=== PATIENT | female | born 1965 | race Caucasian/White ===

== ENCOUNTER 2018-11-21 22:07 | Emergency (ER) | payer OTHER, MEDICAID, SELFPAY ==
[2018-11-21 22:29] VITALS: BP 116/73; PULSE 85; RESP 12; TEMP 36.6; O2SAT 100
--- NOTE | 2018-11-21 22:45 | DI.CT.S_ITS ---
PROCEDURE: CT HEAD/BRAIN WO CON INDICATIONS: Dizziness, ear pain TECHNIQUE: Noncontrast 4.5 mm thick angled axial sections acquired from the foramen magnum to the vertex, with coronal and sagittal reformats. For radiation dose reduction, the following was used: automated exposure control, adjustment of mA and/or kV according to patient size. COMPARISON: None. FINDINGS: Image quality: Excellent. CSF spaces: Basal cisterns are patent. No extra-axial fluid collections. Ventricles are normal in size and shape. Brain: No midline shift. No intracranial masses or hemorrhage. Mckinley-white matter interface is normal. Skull and face: Calvarium and visualized facial bones are intact, without suspicious lesions. Sinuses: Visualized sinuses and mastoids are clear. IMPRESSION: 1. No acute intracranial abnormalities. No significant discrepancy with the security shift supervisor radiology preliminary report. Dictated by: Simon Gonzalez M.D. on 11/22/2018 at 7:56 Approved by: Simon Gonzalez M.D. on 11/22/2018 at 7:57
--- NOTE | 2018-11-21 22:45 | ED.DIZZY ---
HPI - Dizziness General Chief Complaint: Dizziness Stated Complaint: STATES VERY DIZZY Time Seen by Provider: 11/21/18 22:15 Source: patient Mode of arrival: ambulatory Limitations: no limitations History of Present Illness HPI Narrative: Patient is a 53-year-old female here for evaluation dizziness and left-sided numbness. She stated that it started approximately an hour before coming to the emergency department. She stated that the dizziness as a lightheadedness. He is not a vertigo sensation. She states that the numbness is at the top of her left arm and down the outside of her left leg. No trauma. Has not tried anything for the symptoms prior to arrival. She states she is having some sinus congestion. No vision changes. No chest pain or shortness of breath. Related Data Home Medications Medication Instructions Recorded Confirmed bupropion HCl [Wellbutrin SR] 150 mg PO QDAYP #0 04/09/11 gemfibrozil 600 mg PO BIDAC #0 04/09/11 loratadine [Claritin] 10 mg PO BID #0 04/09/11 citalopram 40 mg PO QDAY #0 02/09/12 omeprazole 20 mg PO QDAY@0600 #0 02/09/12 Previous Rx's Medication Instructions Recorded prednisone 20 mg PO SEE INSTRUCTIONS #15 tab 04/22/16 meclizine 25 mg PO BID-TID PRN #10 tab 11/22/18 methocarbamol [Robaxin] 750 mg PO TID PRN #60 tab 11/22/18 Allergies Allergy/AdvReac Type Severity Reaction Status Date / Time amoxicillin [AMOXICILLIN] Allergy Unknown Verified 11/22/18 01:02 aspirin [ASPIRIN] Allergy Unknown Verified 11/22/18 01:02 clavulanic acid Allergy Unknown Verified 11/22/18 01:02 [CLAVULANIC ACID] diphenhydramine Allergy Unknown Verified 11/22/18 01:02 [DIPHENHYDRAMINE] erythromycin base Allergy Unknown Verified 11/22/18 01:02 [From ERYTHROCIN] ibuprofen [IBUPROFEN] Allergy Unknown Verified 11/22/18 01:02 Sulfa (Sulfonamide Allergy Unknown Verified 11/22/18 01:02 Antibiotics) [SULFA (SULFONAMIDE ANTIBIOTICS)] tetracycline [TETRACYCLINE] Allergy Unknown Verified 11/22/18 01:02 Review of Systems Constitutional Denies fatigue and Denies fever(s) ENT Ears, Nose, Mouth, and Throat: Denies vertigo, Denies dizziness, Reports disequilibrium and Reports sinus pressure Cardiovascular Denies chest pain and Denies dyspnea Respiratory Denies cough and Denies dyspnea Gastrointestinal Gastrointestinal: Denies abdominal pain, Denies nausea and Denies vomiting Musculoskeletal Denies myalgias, Denies arthralgias, Denies muscle weakness and Reports tingling (Left upper arm outside a left leg) Integumentary/Breasts Denies rash Neurologic Denies behavioral changes, Denies confusion, Denies vertigo, Denies dizziness, Denies memory loss, Reports tingling (Left upper arm outside a left leg) and Reports disequilibrium Psychiatric Denies behavioral changes, Denies confusion and Denies memory loss Endocrine Denies fatigue [facility] Medical History Gastroesophageal reflux disease (Acute) Hypothyroid (Acute) Social History Smoking Status: Current every day smoker Social History Smoking Status: Current every day smoker Exam Initial Vital Signs Initial Vital Signs: Vital Signs Temperature 97.9 F 11/21/18 22:29 Pulse Rate 85 11/21/18 22:29 Respiratory Rate 12 11/21/18 22:29 Blood Pressure 116/73 11/21/18 22:29 Pulse Oximetry 100 11/21/18 22:29 Const General: cooperative, healthy appearing, well developed, well groomed and No acute distress Orientation: alert, awake and oriented x3 HENMT Head: normal to inspection and normocephalic Ears: right TM abnormal (Bulging tympanic membrane on the right without erythema) and TM normal on the left Eyes Pupils: PERRL EOM: EOM intact bilaterally Resp Effort & Inspection: normal respiratory effort Auscultation: clear to auscultation bilaterally Cardio Rate: regular rate Rhythm: regular rhythm Pulses: radial pulses present GI Inspection: non-distended Palpation: soft Skin Lesions: no lesions Rashes: no rashes Neuro General: alert, awake and oriented x3 Cranial Nerves: CN's II-XI intact bilaterally Cognition: normal cognition Speech: speech normal Motor: muscle tone normal throughout Extrem General: normal to inspection and capillary refill normal Psych Appearance: grossly normal and well kempt Scores GCS Leticia coma scale eye opening: Spontaneous [place] coma scale verbal response: Orientated Leticia coma scale motor response: Obey commands Leticia coma scale total score: 15 NIH Stroke Scale Level of Conciousness: Alert, keenly responsive Ask month/age: Answers both questions correctly. Open/close eyes, close hand: Performs both tasks correctly Best gaze horizontal: Normal Visual hauser: No visual loss Facial palsy: Normal symetrical movement Left arm drift: No drift for full 10 sec Right arm drift: No drift for full 10 sec Left leg drift: No drift for full 10 sec Right leg drift: No drift for full 10 sec Limb ataxia: Absent Sensory on face/arms/legs: Mild to moderate sensory loss, can tell touch Best language: No aphasia, normal Dysarthria: Normal Extinction or inattention: No abnormality Total NIH Stroke scale score: 1 Course Orders Ordered: ED Orders 11/21/18 22:45 CT head/brain wo con Stat EKG-12 Lead Stat 11/21/18 22:50 Complete Blood Count AUTO DIFF Stat Comprehensive Metabolic Panel Stat Lipase Stat Partial Thromboplastin Time Stat Prothrombin Time INR Stat Troponin I Stat Discontinued Medications Sodium Chloride (Normal Saline 0.9%) 1,000 mls @ 1,000 mls/hr IV BOLUS ONE Stop: 11/21/18 23:44 Last Infusion: 11/22/18 01:02 Dose: 0 mls/hr Admin: 11/21/18 23:04 Dose: 1,000 mls/hr Vital Signs - 8 hr 11/21/18 22:29 11/21/18 23:30 11/22/18 00:32 Temperature 97.9 F Pulse Rate 85 71 74 Respiratory Rate 12 16 16 Blood Pressure 116/73 Blood Pressure [Left Arm] 156/67 H 150/91 H Pulse Oximetry 100 98 96 11/22/18 01:16 Temperature 98.3 F Pulse Rate 75 Respiratory Rate 14 Blood Pressure 123/83 Blood Pressure [Left Arm] Pulse Oximetry 100 MDM - Dizziness Lab Data Attestation: I reviewed the patient's lab results. Result diagrams: 11/21/18 22:50 11/21/18 22:50 Lab Results 11/21/18 11/21/18 11/21/18 Range/Units 22:50 22:50 22:50 WBC 6.7 (4.5-11.0) X10^3/uL RBC 4.33 (4.0-5.2) X10^6/uL Hgb 12.6 (12.0-16.0) g/dL Hct 36.8 (36-46) % MCV 85.0 (80-100) fL MCH 29.1 (26-34) PG MCHC 34.3 (30-36) % RDW 13.0 (11.6-14.8) % Plt Count 239 (150-400) X10^3/uL Neut % (Auto) 42.8 L (50-75) % Lymph % (Auto) 46.8 H (25-40) % Josephine % (Auto) 7.4 (3-14) % Eos % (Auto) 2.5 (2-4) % Baso % (Auto) 0.5 (0-2) % Neut # (Auto) 2900 (7301-5492) /uL Lymph # (Auto) 3100 (9042-3506) /uL Josephine # (Auto) 500 (0-900) /uL Eos # (Auto) 200 (0-450) /uL Baso # (Auto) 0 (0-100) /uL PT 11.6 (10.1-12.7) SECONDS INR 1.0 (0.9-1.3) APTT 37 H (26.4-36.2) SECONDS Sodium 142 (137-145) mmol/L Potassium 3.5 (3.4-5.1) mmol/L Chloride 104 (98-107) mmol/L Carbon Dioxide 26 (22-32) mmol/L BUN 22 H (7-17) mg/dL Creatinine 1.00 (0.52-1.04) mg/dL Estimated GFR 58.0 L (>60) mL/min BUN/Creatinine Ratio 22.0 (6-22) Glucose 89 (70-100) mg/dL Calcium 10.5 H (8.4-10.2) mg/dL Total Bilirubin 0.4 (0.2-1.3) mg/dL AST 20 (14-36) IU/L ALT 27 (9-52) IU/L Alkaline Phosphatase 66 (38-126) U/L Troponin I (0.01-0.034) ng/mL Total Protein 8.5 H (6.3-8.2) g/dL Albumin 4.9 (3.5-5.0) g/dL Globulin 3.6 (1.7-4.1) g/dL Albumin/Globulin Ratio 1.4 (1.0-2.8) Lipase 254 (23-300) U/L 11/21/18 Range/Units 22:50 WBC (4.5-11.0) X10^3/uL RBC (4.0-5.2) X10^6/uL Hgb (12.0-16.0) g/dL Hct (36-46) % MCV (80-100) fL MCH (26-34) PG MCHC (30-36) % RDW (11.6-14.8) % Plt Count (150-400) X10^3/uL Neut % (Auto) (50-75) % Lymph % (Auto) (25-40) % Josephine % (Auto) (3-14) % Eos % (Auto) (2-4) % Baso % (Auto) (0-2) % Neut # (Auto) (9937-2456) /uL Lymph # (Auto) (9167-0295) /uL Josephine # (Auto) (0-900) /uL Eos # (Auto) (0-450) /uL Baso # (Auto) (0-100) /uL PT (10.1-12.7) SECONDS INR (0.9-1.3) APTT (26.4-36.2) SECONDS Sodium (137-145) mmol/L Potassium (3.4-5.1) mmol/L Chloride (98-107) mmol/L Carbon Dioxide (22-32) mmol/L BUN (7-17) mg/dL Creatinine (0.52-1.04) mg/dL Estimated GFR (>60) mL/min BUN/Creatinine Ratio (6-22) Glucose (70-100) mg/dL Calcium (8.4-10.2) mg/dL Total Bilirubin (0.2-1.3) mg/dL AST (14-36) IU/L ALT (9-52) IU/L Alkaline Phosphatase (38-126) U/L Troponin I < 0.012 (0.01-0.034) ng/mL Total Protein (6.3-8.2) g/dL Albumin (3.5-5.0) g/dL Globulin (1.7-4.1) g/dL Albumin/Globulin Ratio (1.0-2.8) Lipase (23-300) U/L Imaging Data CT scan - head: Radiologist's impression: No acute intracranial disease ECG Data Attestation: I personally reviewed and interpreted this ECG as follows: Prior ECG tracings: not available for review Interpretation: Sinus rhythm Ventricular rate is 74 Normal axis Normal QRS Normal QTC No ST T wave changes MDM Narrative Medical decision making narrative: Patient has an NIH score of 1. I do suspect that her tingling the left side of her legs from sciatica. Patient states she has had sciatic in the past. Will send home on Robaxin for this. She states she cannot take anti-inflammatories. Head CT was unremarkable. EKG was unremarkable. Low suspicion for CVA. Does have a bulging right tympanic membrane without erythema. She does have sinus congestion. She is on Zyrtec but only occasionally takes Flonase. Informed her that she should be taking Flonase on a regular basis. I do suspect that her dizziness is secondary to the sinus congestion. Hold on further workup for now. Will give a course of meclizine to see if this does not help her symptoms although she does not describe vertigo but more of an unsteadiness. She expressed understanding and agreement plan. Discharge Plan Departure Patient Disposition: Home Clinical Impression: Lightheadedness, Sinus congestion, Sciatica of left side Discharge Date/Time: 11/22/18 01:21 Interventions: ED Discharge Assessment Last Done: 11/22/18 01:16 Instructions: DI for Dizziness-Nonvertigo Activity Restrictions/Additional Instructions: Take the medications like we discussed. Contact your primary care doctor for a follow-up. Return to the emergency department for any new or worsening symptoms Prescriptions: New methocarbamol [Robaxin] 500 mg tablet 750 mg PO TID PRN (Reason: muscle pain) Qty: 60 RF: 0 meclizine 25 mg tablet 25 mg PO BID-TID PRN (Reason: motion sickness) Qty: 10 RF: 0 No Action bupropion HCl [Wellbutrin SR] 150 MG tablet extended release 12 hr 150 mg PO QDAYP Qty: 0 RF: 0 gemfibrozil 600 MG tablet 600 mg PO BIDAC Qty: 0 RF: 0 loratadine [Claritin] 10 MG tablet 10 mg PO BID Qty: 0 RF: 0 citalopram 20 MG tablet 40 mg PO QDAY Qty: 0 RF: 0 omeprazole 20 MG capsule,delayed release(DR/EC) 20 mg PO QDAY@0600 Qty: 0 RF: 0 prednisone 20 MG tablet 20 mg PO SEE INSTRUCTIONS Qty: 15 RF: 0
[2018-11-21 23:02] LABS: Add Manual Diff / Slide Review NO; Basophils Absolute Auto 0 /uL (0-100); Basophils Percent Auto 0.5 % (0-2); Eosinophils Absolute Auto 200 /uL (0-450); Eosinophils Percent Auto 2.5 % (2-4); Hematocrit 36.8 % (36-46); Hemoglobin 12.6 g/dL (12.0-16.0); Lymphocytes Absolute Auto 3100 /uL (1100-4500); Lymphocytes Percent Auto 46.8 % (25-40); Mean Corpuscular HGB Conc 34.3 % (30-36); Mean Corpuscular Hemoglobin 29.1 PG (26-34); Monocytes Absolute Auto 500 /uL (0-900); Monocytes Percent Auto 7.4 % (3-14); Neutrophils Absolute Auto 2900 /uL (1500-7000); Neutrophils Percent Auto 42.8 % (50-75); Platelet Count 239 X10^3/uL (150-400); Red Blood Cell Count 4.33 X10^6/uL (4.0-5.2); White Blood Cell Count 6.7 X10^3/uL (4.5-11.0)
[2018-11-21] MEDS: SODIUM CHLORIDE 0.9% 1,000 ML 1000 ML IV (23:04)
[2018-11-21 23:10] LABS: Prothrombin Time 11.6 SECONDS (10.1-12.7)
[2018-11-21 23:13] LABS: PTT Partial Thromboplastin Tim 37 SECONDS (26.4-36.2)
[2018-11-21 23:15] LABS: Alanine Aminotransferase 27 IU/L (9-52); Albumin 4.9 g/dL (3.5-5.0); Albumin Globulin Ratio 1.4 (1.0-2.8); Alkaline Phosphatase 66 U/L (38-126); Aspartate Aminotransferase 20 IU/L (14-36); Bilirubin Total 0.4 mg/dL (0.2-1.3); Blood Urea Nitrogen 22 mg/dL (7-17); Calcium 10.5 mg/dL (8.4-10.2); Carbon Dioxide 26 mmol/L (22-32); Chloride 104 mmol/L (98-107); Globulin 3.6 g/dL (1.7-4.1); Glucose 89 mg/dL (70-100); HEMOLYSIS < 15 (0-50); Lipase 254 U/L (23-300); Potassium 3.5 mmol/L (3.4-5.1); Sodium 142 mmol/L (137-145); Total Protein 8.5 g/dL (6.3-8.2)
[2018-11-21 23:26] LABS: Troponin I < 0.012 ng/mL (0.01-0.034)
[2018-11-21 23:30] VITALS: BP 156/67; PULSE 71; RESP 16; O2SAT 98
[2018-11-22 00:32] VITALS: BP 150/91; PULSE 74; RESP 16; O2SAT 96
[2018-11-22 01:16] VITALS: BP 123/83; PULSE 75; RESP 14; TEMP 36.8; O2SAT 100
== END 2018-11-22 01:21 | disposition home or self-care (01) ==
PROVIDERS: Emergency Provider Emergency Medicine
DX: R42 Dizziness and giddiness (principal); R09.81 Nasal congestion; M54.32 Sciatica, left side; R20.0 Anesthesia of skin
CPT/HCPCS: 36591; 70450; 80053; 83690; 84484; 85025; 85610; 85730; 93005; 96360; 96361; 99283; 99285

== ENCOUNTER 2018-12-04 18:12 | Emergency (ER) | payer OTHER, MEDICAID, SELFPAY ==
[2018-12-04 18:20] VITALS: BP 111/71; PULSE 110; RESP 18; TEMP 36.7; O2SAT 99
[2018-12-04 18:46] LABS: Amorphous Sediment Urine 1+; Bacteria Urine Moderate (10-30); RBC Urine 10-30/HPF (0-5/HPF); Squamous Epithelial Cell Urine 1-5 /HPF (0-5/HPF); WBC Urine 30-100/HPF (0-5/HPF)
[2018-12-04 18:47] LABS: Culture Indicated Urine Specimen Cultured; Mucus Urine 1+ (Negative)
[2018-12-04 19:16] VITALS: BP 112/88; PULSE 95; RESP 18; O2SAT 99
--- NOTE | 2018-12-04 19:50 | DI.CT.S_ITS ---
PROCEDURE: CT KIDNEY URETER BLADDER (KUB) INDICATIONS: severe R flank pain, hx stones TECHNIQUE: Noncontrast 5 mm thick sections acquired from the diaphragms to the symphysis. 5 mm thick coronal and sagittal reformats were then performed. For radiation dose reduction, the following was used: automated exposure control, adjustment of mA and/or kV according to patient size. COMPARISON: Outside Film, CT, CT ABDOMEN PELVIS WITHOUT CONTRAST, 08/14/2018, 16:46. [facility], CT, CT ABDOMEN PELVIS WITH CONTRAST, 08/29/2018, 22:09. FINDINGS: Image quality: Excellent. Lung bases: Lung bases are clear. A 2 mm right middle lobe pulmonary nodule on image one of series 5 is higher than on the previous studies. A 4 mm nodule in the right middle lobe on image 4 is stable compared to July,. Heart size is normal. Urinary system: Right kidney: Nonobstructing 7 x 4 mm stone in the junction between the middle pole and lower pole. No other kidney stones. No hydronephrosis. No mass. The right ureter: Unremarkable. Left kidney: No stone, hydronephrosis, or mass. Left ureter: Unremarkable. Other solid organs: Liver is normal in size. Gallbladder is surgically absent. Pancreas is normal in contours. Spleen is normal in size. No adrenal nodules. Peritoneum and bowel: Unenhanced bowel loops demonstrate normal wall thickness and caliber. No free fluid or air. Nodes and vessels: No retroperitoneal or mesenteric adenopathy by size criteria. Aorta and inferior vena cava are normal in caliber. Abdominal wall: No ventral hernias. Pelvis: No free pelvic fluid. No inguinal hernias or adenopathy. Remote hysterectomy. Bones: No suspicious bony lesions. No vertebral body compression fractures. Canal stenosis at L4-L5 is likely moderate. IMPRESSION: 1. Nonobstructing 7 x 4 mm stone in the right kidney. 2. Negative for hydronephrosis or hydroureter. 3. Remote cholecystectomy and hysterectomy. 4. Moderate canal stenosis at L4-L5. Dictated by: Wenceslao Gomes M.D. on 12/04/2018 at 20:19 Approved by: Wenceslao Gomes M.D. on 12/04/2018 at 20:25
[2018-12-04 20:02] LABS: Add Manual Diff / Slide Review NO; Basophils Absolute Auto 0 /uL (0-100); Basophils Percent Auto 0.3 % (0-2); Eosinophils Absolute Auto 300 /uL (0-450); Eosinophils Percent Auto 3.2 % (2-4); Hematocrit 31.8 % (36-46); Hemoglobin 10.7 g/dL (12.0-16.0); Lymphocytes Absolute Auto 2500 /uL (1100-4500); Lymphocytes Percent Auto 29.7 % (25-40); Mean Corpuscular HGB Conc 33.8 % (30-36); Mean Corpuscular Hemoglobin 29.2 PG (26-34); Mean Corpuscular Volume 86.6 fL (80-100); Monocytes Absolute Auto 500 /uL (0-900); Monocytes Percent Auto 5.5 % (3-14); Neutrophils Absolute Auto 5200 /uL (1500-7000); Neutrophils Percent Auto 61.3 % (50-75); Platelet Count 218 X10^3/uL (150-400); Red Blood Cell Count 3.67 X10^6/uL (4.0-5.2); Red Cell Distribution Width 13.2 % (11.6-14.8); White Blood Cell Count 8.6 X10^3/uL (4.5-11.0)
[2018-12-04] MEDS: ONDANSETRON 4 MG/2 ML INJ IV (20:07)
[2018-12-04] MEDS: HYDROMORPHONE 0.5 MG INJ IV (20:08)
[2018-12-04] MEDS: SODIUM CHLORIDE 0.9% 1,000 ML 1000 ML IV (20:08)
[2018-12-04] MEDS: levoFLOXacin 500 MG/100 ML PIGGYBACK 100 MG IV (20:09)
[2018-12-04 20:11] LABS: BUN Creatinine Ratio 17.1 (6-22); Blood Urea Nitrogen 12 mg/dL (7-17); Calcium 9.3 mg/dL (8.4-10.2); Carbon Dioxide 28 mmol/L (22-32); Chloride 104 mmol/L (98-107); Estimated Glomerular Filt Rate > 60.0 mL/min (>60); Glucose 103 mg/dL (70-100); HEMOLYSIS < 15 (0-50); Potassium 3.2 mmol/L (3.4-5.1); Sodium 140 mmol/L (137-145)
[2018-12-04 20:25] VITALS: BP 131/80; PULSE 98; RESP 18; O2SAT 98
[2018-12-04 20:34] LABS: Procalcitonin < 0.05 ng/mL (<0.5)
[2018-12-04 21:00] VITALS: BP 119/76; PULSE 99; RESP 18; O2SAT 99
[2018-12-04] MEDS: HYDROMORPHONE 1 MG INJ 0.5 MG IV (21:22)
[2018-12-04 22:00] VITALS: BP 120/74; PULSE 100; RESP 18; O2SAT 100
[2018-12-04] MEDS: HYDROCODONE/ACET 5/325 PREPACK 1 BOTTLE MISC (22:31)
[2018-12-04 22:41] VITALS: BP 129/74; RESP 20; O2SAT 97
--- NOTE | 2018-12-05 06:29 | ED.ABDPAIN ---
HPI - Abdominal Pain General Chief Complaint: Abdominal Pain Stated Complaint: PEEING BLOOD Time Seen by Provider: 12/04/18 19:37 Source: patient and family Mode of arrival: ambulatory Limitations: no limitations History of Present Illness HPI narrative: 53-year-old former smoker presents with a chief complaint of hematuria in right flank pain. She denies any fever, chills nor vomiting but is nauseated. She states that at times her right flank pain is worse with motion and others symptoms moderate zone. She has had some dysuria but denies any significant frequency or urgency. Patient has a history of a 5 mm stone in her right kidney and has established with the urologist at [facility]. She has been having pain off and on for months MD complaint: flank pain Pain Consistency: intermittent Severity: moderate Quality: cramping and stabbing Radiation: R flank Relieving factors: rest Exacerbating factors: movement Associated symptoms: nausea and hematuria Related Data Home Medications Medication Instructions Recorded Confirmed bupropion HCl [Wellbutrin SR] 150 mg PO QDAYP #0 04/09/11 gemfibrozil 600 mg PO BIDAC #0 04/09/11 loratadine [Claritin] 10 mg PO BID #0 04/09/11 citalopram 40 mg PO QDAY #0 02/09/12 omeprazole 20 mg PO QDAY@0600 #0 02/09/12 Previous Rx's Medication Instructions Recorded prednisone 20 mg PO SEE INSTRUCTIONS #15 tab 04/22/16 meclizine 25 mg PO BID-TID PRN #10 tab 11/22/18 methocarbamol [Robaxin] 750 mg PO TID PRN #60 tab 11/22/18 ciprofloxacin HCl [Cipro] 500 mg PO BID #20 tab 12/04/18 hydrocodone-acetaminophen 1 tab PO Q4-6H PRN #10 tab 12/04/18 ondansetron 4 mg PO TID-QID PRN #10 tab 12/04/18 Allergies Allergy/AdvReac Type Severity Reaction Status Date / Time amoxicillin [AMOXICILLIN] Allergy Unknown Verified 11/22/18 01:02 aspirin [ASPIRIN] Allergy Unknown Verified 11/22/18 01:02 clavulanic acid Allergy Unknown Verified 11/22/18 01:02 [CLAVULANIC ACID] diphenhydramine Allergy Unknown Verified 11/22/18 01:02 [DIPHENHYDRAMINE] erythromycin base Allergy Unknown Verified 11/22/18 01:02 [From ERYTHROCIN] ibuprofen [IBUPROFEN] Allergy Unknown Verified 11/22/18 01:02 Sulfa (Sulfonamide Allergy Unknown Verified 11/22/18 01:02 Antibiotics) [SULFA (SULFONAMIDE ANTIBIOTICS)] tetracycline [TETRACYCLINE] Allergy Unknown Verified 11/22/18 01:02 Review of Systems Constitutional Denies chills, Denies fever(s), Denies lethargy and Denies weakness Eyes Denies change in vision, Denies eye discharge, Denies irritation and Denies loss of vision ENT Ears, Nose, Mouth, and Throat: Denies change in voice, Denies neck pain and Denies sore throat Cardiovascular Denies chest pain, Denies irregular heart rhythm, Denies lightheadedness, Denies palpitations, Denies dyspnea, Denies dyspnea on exertion and Denies orthopnea Respiratory Denies cough, Denies dyspnea, Denies dyspnea on exertion and Denies wheezing Gastrointestinal Gastrointestinal: Denies abdominal pain, Denies change in bowel habits, Denies diarrhea, Denies nausea and Denies vomiting Genitourinary Reports hematuria, Reports flank pain, Denies urinary incontinence and Denies urinary urgency Musculoskeletal Denies neck pain Integumentary/Breasts Denies pruritus, Denies erythema, Denies rash and Denies wounds Neurologic Denies confusion, Denies loss of vision and Denies weakness Psychiatric Denies anxiety, Denies confusion, Denies depression, Denies homicidal ideation and Denies suicidal ideation Endocrine Denies palpitations Hematologic/Lymphatic Denies easy bruising Allergic/Immunologic Denies wheezing [facility] Medical History Gastroesophageal reflux disease (Acute) Hypothyroid (Acute) Social History Smoking Status: Current every day smoker Social History Smoking Status: Current every day smoker Exam Narrative Exam Narrative: GENERAL: 53-year-old female appears older than stated age, obviously uncomfortable, rubbing her right flank HEAD: Atraumatic. Normocephalic. No temporal or scalp tenderness. EYES: Pupils equal round and reactive. Extraocular motions intact. No scleral icterus. No injection or drainage. ENT: Nose without bleeding, purulent drainage or septal hematoma. Throat without erythema, tonsillar hypertrophy or exudate. Uvula midline. Airway patent. NECK: Trachea midline. No JVD or lymphadenopathy. Supple, nontender, no meningeal signs. CARDIOVASCULAR: Regular rate and rhythm without murmurs, gallops, or rubs. RESPIRATORY: Clear to auscultation. Breath sounds equal bilaterally. No wheezes, rales, or rhonchi. GASTROINTESTINAL: Abdomen soft, non-tender, nondistended. No hepato-splenomegaly, or palpable masses. No guarding. EXTREMITIES: No clubbing, cyanosis, or edema. No joint tenderness, effusion, or edema noted. BACK: Pain in right flank, CVA tenderness NEURO: AOx3. SKIN: No rash or erythema. Initial Vital Signs Initial Vital Signs: Vital Signs Temperature 98.0 F 12/04/18 18:20 Pulse Rate 110 H 12/04/18 18:20 Respiratory Rate 18 12/04/18 18:20 Blood Pressure 111/71 12/04/18 18:20 Pulse Oximetry 99 12/04/18 18:20 Course Orders Ordered: Discontinued Medications Hydrocodone Bitart/Acetaminophen (Vicodin Prepack) 1 bottle MISC SEEINSTR ONE Stop: 12/04/18 22:25 Last Admin: 12/04/18 22:31 Dose: 1 bottle Hydromorphone HCl (Dilaudid) 0.5 mg IV NOW ONE Stop: 12/04/18 19:51 Last Admin: 12/04/18 20:08 Dose: 0.5 mg Hydromorphone HCl (Dilaudid) 0.5 mg IV NOW ONE Stop: 12/04/18 21:20 Last Admin: 12/04/18 21:22 Dose: 0.5 mg Sodium Chloride (Normal Saline 0.9%) 1,000 mls @ 1,000 mls/hr IV BOLUS ONE Stop: 12/04/18 20:49 Last Infusion: 12/04/18 22:32 Dose: 0 mls/hr Admin: 12/04/18 20:08 Dose: 1,000 mls/hr Levofloxacin (Levaquin) 500 mg in 100 mls @ 100 mls/hr IV NOW ONE Stop: 12/04/18 20:49 Last Infusion: 12/04/18 21:57 Dose: 0 mls/hr Admin: 12/04/18 20:09 Dose: 100 mls/hr Ondansetron HCl (Zofran) 4 mg IV Q4HR PRN PRN Reason: Nausea And Vomiting Last Admin: 12/04/18 20:07 Dose: 4 mg Ondansetron HCl (Zofran) 4 mg IV Q4HR PRN PRN Reason: Nausea And Vomiting Reevaluation(s) Reevaluation #1: Patient does show improved symptoms after above-stated therapies Consultations Consultation #1: Discussion with her urologist whom suggest that pain control and antibiotics with followup are appropriate therapies and that they will see her in clinic Vital Signs - 8 hr 12/04/18 22:41 Respiratory Rate 20 Blood Pressure [Left Arm] 129/74 Pulse Oximetry 97 MDM - Abdominal Pain Medical Records Attestation: I reviewed the patient's medical records. Lab Data Result diagrams: 12/04/18 19:43 12/04/18 19:43 Lab Results 12/04/18 12/04/18 12/04/18 Range/Units 18:30 19:43 19:43 WBC 8.6 (4.5-11.0) X10^3/uL RBC 3.67 L (4.0-5.2) X10^6/uL Hgb 10.7 L (12.0-16.0) g/dL Hct 31.8 L (36-46) % MCV 86.6 (80-100) fL MCH 29.2 (26-34) PG MCHC 33.8 (30-36) % RDW 13.2 (11.6-14.8) % Plt Count 218 (150-400) X10^3/uL Neut % (Auto) 61.3 (50-75) % Lymph % (Auto) 29.7 (25-40) % Ector % (Auto) 5.5 (3-14) % Eos % (Auto) 3.2 (2-4) % Baso % (Auto) 0.3 (0-2) % Neut # (Auto) 5200 (5074-5219) /uL Lymph # (Auto) 2500 (5076-1009) /uL Ector # (Auto) 500 (0-900) /uL Eos # (Auto) 300 (0-450) /uL Baso # (Auto) 0 (0-100) /uL Sodium (137-145) mmol/L Potassium (3.4-5.1) mmol/L Chloride (98-107) mmol/L Carbon Dioxide (22-32) mmol/L BUN (7-17) mg/dL Creatinine (0.52-1.04) mg/dL Estimated GFR (>60) mL/min BUN/Creatinine Ratio (6-22) Glucose (70-100) mg/dL Calcium (8.4-10.2) mg/dL Procalcitonin < 0.05 (<0.5) ng/mL Urine RBC 10-30/hpf H (0-5/HPF) Urine WBC 30-100/hpf H (0-5/HPF) Ur Squamous Epith Cells 1-5 /hpf (0-5/HPF) Amorphous Sediment 1+ Urine Bacteria Moderate (10-30) H (None) Urine Mucus 1+ H (Negative) Ur Culture Indicated? Specimen cultured 12/04/18 Range/Units 19:43 WBC (4.5-11.0) X10^3/uL RBC (4.0-5.2) X10^6/uL Hgb (12.0-16.0) g/dL Hct (36-46) % MCV (80-100) fL MCH (26-34) PG MCHC (30-36) % RDW (11.6-14.8) % Plt Count (150-400) X10^3/uL Neut % (Auto) (50-75) % Lymph % (Auto) (25-40) % Ector % (Auto) (3-14) % Eos % (Auto) (2-4) % Baso % (Auto) (0-2) % Neut # (Auto) (1727-8830) /uL Lymph # (Auto) (2803-6827) /uL Ector # (Auto) (0-900) /uL Eos # (Auto) (0-450) /uL Baso # (Auto) (0-100) /uL Sodium 140 (137-145) mmol/L Potassium 3.2 L (3.4-5.1) mmol/L Chloride 104 (98-107) mmol/L Carbon Dioxide 28 (22-32) mmol/L BUN 12 (7-17) mg/dL Creatinine 0.70 (0.52-1.04) mg/dL Estimated GFR > 60.0 (>60) mL/min BUN/Creatinine Ratio 17.1 (6-22) Glucose 103 H (70-100) mg/dL Calcium 9.3 (8.4-10.2) mg/dL Procalcitonin (<0.5) ng/mL Urine RBC (0-5/HPF) Urine WBC (0-5/HPF) Ur Squamous Epith Cells (0-5/HPF) Amorphous Sediment Urine Bacteria (None) Urine Mucus (Negative) Ur Culture Indicated? Point of care testing: Urine Dip Bedside Urine Glucose Negative Bedside Urine Bilirubin - Negative Bedside Urine Ketone - Negative Urine Specific [place] 1.030 Bedside Urine Occult Blood +++ Bedside Urine pH 6.0 Bedside Urine Protein ++ 100 Bedside Urine Urobilinogen - Negative Bedside Urine Nitrite + Positive Bedside Urine Leukocytes +++ [address] scan - abdomen: Radiologist's impression: [address] [address] [address] Scan Report Signed Patient: Rabia Arthur EMR#: [id number] : 1965Acct:[id number] Age/Sex: 53 / FDate of Service: 12/04/18 Loc: ED Accession Number: [id number] Procedure: CT kidney ureter bladder (KUB) Ordering Provider: Nathan Daniel D.O. PROCEDURE: CT KIDNEY URETER BLADDER (KUB) INDICATIONS: severe R flank pain, hx stones TECHNIQUE: Noncontrast 5 mm thick sections acquired from the diaphragms to the symphysis. 5 mm thick coronal and sagittal reformats were then performed. For radiation dose reduction, the following was used: automated exposure control, adjustment of mA and/or kV according to patient size. COMPARISON: Outside Film, CT, CT ABDOMEN PELVIS WITHOUT CONTRAST, 08/14/2018, 16:46. [facility], CT, CT ABDOMEN PELVIS WITH CONTRAST, 08/29/2018, 22:09. FINDINGS: Image quality: Excellent. Lung bases: Lung bases are clear. A 2 mm right middle lobe pulmonary nodule on image one of series 5 is higher than on the previous studies. A 4 mm nodule in the right middle lobe on image 4 is stable compared to July,. Heart size is normal. Urinary system: Right kidney: Nonobstructing 7 x 4 mm stone in the junction between the middle pole and lower pole. No other kidney stones. No hydronephrosis. No mass. The right ureter: Unremarkable. Left kidney: No stone, hydronephrosis, or mass. Left ureter: Unremarkable. Other solid organs: Liver is normal in size. Gallbladder is surgically absent. Pancreas is normal in contours. Spleen is normal in size. No adrenal nodules. Peritoneum and bowel: Unenhanced bowel loops demonstrate normal wall thickness and caliber. No free fluid or air. Nodes and vessels: No retroperitoneal or mesenteric adenopathy by size criteria. Aorta and inferior vena cava are normal in caliber. Abdominal wall: No ventral hernias. Pelvis: No free pelvic fluid. No inguinal hernias or adenopathy. Remote hysterectomy. Bones: No suspicious bony lesions. No vertebral body compression fractures. Canal stenosis at L4-L5 is likely moderate. IMPRESSION: 1. Nonobstructing 7 x 4 mm stone in the right kidney. 2. Negative for hydronephrosis or hydroureter. 3. Remote cholecystectomy and hysterectomy. 4. Moderate canal stenosis at L4-L5. Dictated by: Wenceslao Gomes M.D. on 12/04/2018 at 20:19 Approved by: Wenceslao Gomes M.D. on 12/04/2018 at 20:25 Discharge Plan Departure Patient Disposition: Home Clinical Impression: Pyelonephritis Discharge Date/Time: 12/04/18 22:51 Interventions: ED Discharge Assessment Last Done: 12/04/18 22:46 Instructions: DI for Kidney Infection Activity Restrictions/Additional Instructions: *You have been diagnosed with [ acute pyelonephritis ] *What to do: *Take medications as directed *Follow up with your urologist in 2-3 days, call for an appointment. Let them know you were seen in the Emergency Department and that we ask that you be seen in follow up *Return to ER if you should have any new, worsening or concerning symptoms, such as [ fever over 101 F, shaking chills, worsening pain, vomiting, other bothersome symptoms] Prescriptions: New hydrocodone-acetaminophen 5-325 mg tablet 1 tab PO Q4-6H PRN (Reason: pain) Qty: 10 RF: 0 ondansetron 4 mg tablet,disintegrating 4 mg PO TID-QID PRN (Reason: nausea and vomiting) Qty: 10 RF: 0 ciprofloxacin HCl [Cipro] 500 mg tablet 500 mg PO BID Qty: 20 RF: 0 No Action bupropion HCl [Wellbutrin SR] 150 MG tablet extended release 12 hr 150 mg PO QDAYP Qty: 0 RF: 0 gemfibrozil 600 MG tablet 600 mg PO BIDAC Qty: 0 RF: 0 loratadine [Claritin] 10 MG tablet 10 mg PO BID Qty: 0 RF: 0 citalopram 20 MG tablet 40 mg PO QDAY Qty: 0 RF: 0 omeprazole 20 MG capsule,delayed release(DR/EC) 20 mg PO QDAY@0600 Qty: 0 RF: 0 prednisone 20 MG tablet 20 mg PO SEE INSTRUCTIONS Qty: 15 RF: 0 methocarbamol [Robaxin] 500 mg tablet 750 mg PO TID PRN (Reason: muscle pain) Qty: 60 RF: 0 meclizine 25 mg tablet 25 mg PO BID-TID PRN (Reason: motion sickness) Qty: 10 RF: 0 Referrals: Shana Berrios MD [Non-Staff] -
--- NOTE | 2018-12-05 06:33 | ED_ITS ---
HPI - Abdominal Pain General Chief Complaint: Abdominal Pain Stated Complaint: PEEING BLOOD Time Seen by Provider: 12/04/18 19:37 Source: patient and family Mode of arrival: ambulatory Limitations: no limitations History of Present Illness HPI narrative: 53-year-old former smoker presents with a chief complaint of h ematuria in right flank pain. She denies any fever, chills nor vomiting but is nauseated. She states that at times her right flank pain is worse with motion and others symptoms moderate zone. She has had some dysuria but denies any significant frequency or urgency. Patient has a history of a 5 mm stone in her right kidney and has established with the urologist at [facility]. She has been having pain off and on for months MD complaint: flank pain Pain Consistency: intermittent Severity: moderate Quality: cramping and stabbing Radiation: R flank Relieving factors: rest Exacerbating factors: movement Associated symptoms: nausea and hematuria Related Data Home Medications Medication Instructions Recorded Confirmed bupropion HCl [Wellbutrin SR] 150 mg PO QDAYP #0 04/09/11 gemfibrozil 600 mg PO BIDAC #0 04/09/11 loratadine [Claritin] 10 mg PO BID #0 04/09/11 citalopram 40 mg PO QDAY #0 02/09/12 omeprazole 20 mg PO QDAY@0600 #0 02/09/12 Previous Rx's Medication Instructions Recorded prednisone 20 mg PO SEE INSTRUCTIONS #15 tab 04/22/16 meclizine 25 mg PO BID-TID PRN #10 tab 11/22/18 methocarbamol [Robaxin] 750 mg PO TID PRN #60 tab 11/22/18 ciprofloxacin HCl [Cipro] 500 mg PO BID #20 tab 12/04/18 hydrocodone-acetaminophen 1 tab PO Q4-6H PRN #10 tab 12/04/18 ondansetron 4 mg PO TID-QID PRN #10 tab 12/04/18 Allergies Allergy/AdvReac Type Severity Reaction Status Date / Time amoxicillin [AMOXICILLIN] Allergy Unknown Verified 11/22/18 01:02 aspirin [ASPIRIN] Allergy Unknown Verified 11/22/18 01:02 clavulanic acid Allergy Unknown Verified 11/22/18 01:02 [CLAVULANIC ACID] diphenhydramine Allergy Unknown Verified 11/22/18 01:02 [DIPHENHYDRAMINE] erythromycin base Allergy Unknown Verified 11/22/18 01:02 [From ERYTHROCIN] ibuprofen [IBUPROFEN] Allergy Unknown Verified 11/22/18 01:02 Sulfa (Sulfonamide Allergy Unknown Verified 11/22/18 01:02 Antibiotics) [SULFA (SULFONAMIDE ANTIBIOTICS)] tetracycline [TETRACYCLINE] Allergy Unknown Verified 11/22/18 01:02 Review of Systems Constitutional Denies chills, Denies fever(s), Denies lethargy and Denies weakness Eyes Denies change in vision, Denies eye discharge, Denies irritation and Denies loss of vision ENT Ears, Nose, Mouth, and Throat: Denies change in voice, Denies neck pain and Denies sore throat Cardiovascular Denies chest pain, Denies irregular heart rhythm, Denies lightheadedness, Denies palpitations, Denies dyspnea, Denies dyspnea on exertion and Denies orthopnea Respiratory Denies cough, Denies dyspnea, Denies dyspnea on exertion and Denies wheezing Gastrointestinal Gastrointestinal: Denies abdominal pain, Denies change in bowel habits, Denies diarrhea, Denies nausea and Denies vomiting Genitourinary Reports hematuria, Reports flank pain, Denies urinary incontinence and Denies urinary urgency Musculoskeletal Denies neck pain Integumentary/Breasts Denies pruritus, Denies erythema, Denies rash and Denies wounds Neurologic Denies confusion, Denies loss of vision and Denies weakness Psychiatric Denies anxiety, Denies confusion, Denies depression, Denies homicidal ideation and Denies suicidal ideation Endocrine Denies palpitations Hematologic/Lymphatic Denies easy bruising Allergic/Immunologic Denies wheezing [facility] Medical History Gastroesophageal reflux disease (Acute) Hypothyroid (Acute) Social History Smoking Status: Current every day smoker Social History Smoking Status: Current every day smoker Exam Narrative Exam Narrative: GENERAL: 53-year-old female appears older than stated age, obviously uncomfortable, rubbing her right flank HEAD: Atraumatic. Normocephalic. No temporal or scalp tenderness. EYES: Pupils equal round and reactive. Extraocular motions intact. No scleral icterus. No injection or drainage. ENT: Nose without bleeding, purulent drainage or septal hematoma. Throat without erythema, tonsillar hypertrophy or exudate. Uvula midline. Airway patent. NECK: Trachea midline. No JVD or lymphadenopathy. Supple, nontender, no meningeal signs. CARDIOVASCULAR: Regular rate and rhythm without murmurs, gallops, or rubs. RESPIRATORY: Clear to auscultation. Breath sounds equal bilaterally. No wheezes, rales, or rhonchi. GASTROINTESTINAL: Abdomen soft, non-tender, nondistended. No hepato- splenomegaly, or palpable masses. No guarding. EXTREMITIES: No clubbing, cyanosis, or edema. No joint tenderness, effusion, or edema noted. BACK: Pain in right flank, CVA tenderness NEURO: AOx3. SKIN: No rash or erythema. Initial Vital Signs Initial Vital Signs: Vital Signs Temperature 98.0 F 12/04/18 18:20 Pulse Rate 110 H 12/04/18 18:20 Respiratory Rate 18 12/04/18 18:20 Blood Pressure 111/71 12/04/18 18:20 Pulse Oximetry 99 12/04/18 18:20 Course Orders Ordered: Discontinued Medications Hydrocodone Bitart/Acetaminophen (Vicodin Prepack) 1 bottle MISC SEEINSTR ONE Stop: 12/04/18 22:25 Last Admin: 12/04/18 22:31 Dose: 1 bottle Hydromorphone HCl (Dilaudid) 0.5 mg IV NOW ONE Stop: 12/04/18 19:51 Last Admin: 12/04/18 20:08 Dose: 0.5 mg Hydromorphone HCl (Dilaudid) 0.5 mg IV NOW ONE Stop: 12/04/18 21:20 Last Admin: 12/04/18 21:22 Dose: 0.5 mg Sodium Chloride (Normal Saline 0.9%) 1,000 mls @ 1,000 mls/hr IV BOLUS ONE Stop: 12/04/18 20:49 Last Infusion: 12/04/18 22:32 Dose: 0 mls/hr Admin: 12/04/18 20:08 Dose: 1,000 mls/hr Levofloxacin (Levaquin) 500 mg in 100 mls @ 100 mls/hr IV NOW ONE Stop: 12/04/18 20:49 Last Infusion: 12/04/18 21:57 Dose: 0 mls/hr Admin: 12/04/18 20:09 Dose: 100 mls/hr Ondansetron HCl (Zofran) 4 mg IV Q4HR PRN PRN Reason: Nausea And Vomiting Last Admin: 12/04/18 20:07 Dose: 4 mg Ondansetron HCl (Zofran) 4 mg IV Q4HR PRN PRN Reason: Nausea And Vomiting Reevaluation(s) Reevaluation #1: Patient does show improved symptoms after above-stated therapies Consultations Consultation #1: Discussion with her urologist whom suggest that pain control and antibiotics with followup are appropriate therapies and that they will see her in clinic Vital Signs - 8 hr 12/04/18 22:41 Respiratory Rate 20 Blood Pressure [Left Arm] 129/74 Pulse Oximetry 97 MDM - Abdominal Pain Medical Records Attestation: I reviewed the patient's medical records. Lab Data Result diagrams: 12/04/18 19:43 12/04/18 19:43 Lab Results 12/04/18 12/04/18 12/04/18 Range/Units 18:30 19:43 19:43 WBC 8.6 (4.5-11.0) X10^3/uL RBC 3.67 L (4.0-5.2) X10^6/uL Hgb 10.7 L (12.0-16.0) g/dL Hct 31.8 L (36-46) % MCV 86.6 (80-100) fL MCH 29.2 (26-34) PG MCHC 33.8 (30-36) % RDW 13.2 (11.6-14.8) % Plt Count 218 (150-400) X10^3/uL Neut % (Auto) 61.3 (50-75) % Lymph % (Auto) 29.7 (25-40) % Cook % (Auto) 5.5 (3-14) % Eos % (Auto) 3.2 (2-4) % Baso % (Auto) 0.3 (0-2) % Neut # (Auto) 5200 (8010-8368) /uL Lymph # (Auto) 2500 (0748-4730) /uL Cook # (Auto) 500 (0-900) /uL Eos # (Auto) 300 (0-450) /uL Baso # (Auto) 0 (0-100) /uL Sodium (137-145) mmol/L Potassium (3.4-5.1) mmol/L Chloride (98-107) mmol/L Carbon Dioxide (22-32) mmol/L BUN (7-17) mg/dL Creatinine (0.52-1.04) mg/dL Estimated GFR (>60) mL/min BUN/Creatinine Ratio (6-22) Glucose (70-100) mg/dL Calcium (8.4-10.2) mg/dL Procalcitonin < 0.05 (<0.5) ng/mL Urine RBC 10-30/hpf H (0-5/HPF) Urine WBC 30-100/hpf H (0-5/HPF) Ur Squamous Epith Cells 1-5 /hpf (0-5/HPF) Amorphous Sediment 1+ Urine Bacteria Moderate (10-30) H (None) Urine Mucus 1+ H (Negative) Ur Culture Indicated? Specimen cultured 12/04/18 Range/Units 19:43 WBC (4.5-11.0) X10^3/uL RBC (4.0-5.2) X10^6/uL Hgb (12.0-16.0) g/dL Hct (36-46) % MCV (80-100) fL MCH (26-34) PG MCHC (30-36) % RDW (11.6-14.8) % Plt Count (150-400) X10^3/uL Neut % (Auto) (50-75) % Lymph % (Auto) (25-40) % Cook % (Auto) (3-14) % Eos % (Auto) (2-4) % Baso % (Auto) (0-2) % Neut # (Auto) (6385-4618) /uL Lymph # (Auto) (8319-5393) /uL Cook # (Auto) (0-900) /uL Eos # (Auto) (0-450) /uL Baso # (Auto) (0-100) /uL Sodium 140 (137-145) mmol/L Potassium 3.2 L (3.4-5.1) mmol/L Chloride 104 (98-107) mmol/L Carbon Dioxide 28 (22-32) mmol/L BUN 12 (7-17) mg/dL Creatinine 0.70 (0.52-1.04) mg/dL Estimated GFR > 60.0 (>60) mL/min BUN/Creatinine Ratio 17.1 (6-22) Glucose 103 H (70-100) mg/dL Calcium 9.3 (8.4-10.2) mg/dL Procalcitonin (<0.5) ng/mL Urine RBC (0-5/HPF) Urine WBC (0-5/HPF) Ur Squamous Epith Cells (0-5/HPF) Amorphous Sediment Urine Bacteria (None) Urine Mucus (Negative) Ur Culture Indicated? Point of care testing: Urine Dip Bedside Urine Glucose Negative Bedside Urine Bilirubin - Negative Bedside Urine Ketone - Negative Urine Specific [place] 1.030 Bedside Urine Occult Blood +++ Bedside Urine pH 6.0 Bedside Urine Protein ++ 100 Bedside Urine Urobilinogen - Negative Bedside Urine Nitrite + Positive Bedside Urine Leukocytes +++ [address] scan - abdomen: Radiologist's impression: [address] [address] [address] Scan Report Signed Patient: Rabia Arthur EMR#: [id number] : 1965Acct:[id number] Age/Sex: 53 / FDate of Service: 12/04/18 Loc: ED Accession Number: [id number] Procedure: CT kidney ureter bladder (KUB) Ordering Provider: Nathan Daniel D.O. PROCEDURE: CT KIDNEY URETER BLADDER (KUB) INDICATIONS: severe R flank pain, hx stones TECHNIQUE: Noncontrast 5 mm thick sections acquired from the diaphragms to the symphysis. 5 mm thick coronal and sagittal reformats were then performed. For radiation dose reduction, the following was used: automated exposure control, adjustment of mA and/or kV according to patient size. COMPARISON: Outside Film, CT, CT ABDOMEN PELVIS WITHOUT CONTRAST, 08/14/2018, 16:46. [facility], CT, CT ABDOMEN PELVIS WITH CONTRAST, 08/29/2018, 22:09. FINDINGS: Image quality: Excellent. Lung bases: Lung bases are clear. A 2 mm right middle lobe pulmonary nodule on image one of series 5 is higher than on the previous studies. A 4 mm nodule in the right middle lobe on image 4 is stable compared to July,. Heart size is normal. Urinary system: Right kidney: Nonobstructing 7 x 4 mm stone in the junction between the middle pole and lower pole. No other kidney stones. No hydronephrosis. No mass. The right ureter: Unremarkable. Left kidney: No stone, hydronephrosis, or mass. Left ureter: Unremarkable. Other solid organs: Liver is normal in size. Gallbladder is surgically absent. Pancreas is normal in contours. Spleen is normal in size. No adrenal nodules. Peritoneum and bowel: Unenhanced bowel loops demonstrate normal wall thickness and caliber. No free fluid or air. Nodes and vessels: No retroperitoneal or mesenteric adenopathy by size criteria. Aorta and inferior vena cava are normal in caliber. Abdominal wall: No ventral hernias. Pelvis: No free pelvic fluid. No inguinal hernias or adenopathy. Remote hysterectomy. Bones: No suspicious bony lesions. No vertebral body compression fractures. Canal stenosis at L4-L5 is likely moderate. IMPRESSION: 1. Nonobstructing 7 x 4 mm stone in the right kidney. 2. Negative for hydronephrosis or hydroureter. 3. Remote cholecystectomy and hysterectomy. 4. Moderate canal stenosis at L4-L5. Dictated by: Wenceslao Gomes M.D. on 12/04/2018 at 20:19 Approved by: Wenceslao Gomes M.D. on 12/04/2018 at 20:25 Discharge Plan Departure Patient Disposition: Home Clinical Impression: Pyelonephritis Discharge Date/Time: 12/04/18 22:51 Interventions: ED Discharge Assessment Last Done: 12/04/18 22:46 Instructions: DI for Kidney Infection Activity Restrictions/Additional Instructions: *You have been diagnosed with [ acute pyelonephritis ] *What to do: *Take medications as directed *Follow up with your urologist in 2-3 days, call for an appointment. Let them know you were seen in the Emergency Department and that we ask that you be seen in follow up *Return to ER if you should have any new, worsening or concerning symptoms, such as [ fever over 101 F, shaking chills, worsening pain, vomiting, other bot hersome symptoms] Prescriptions: New hydrocodone-acetaminophen 5-325 mg tablet 1 tab PO Q4-6H PRN (Reason: pain) Qty: 10 RF: 0 ondansetron 4 mg tablet,disintegrating 4 mg PO TID-QID PRN (Reason: nausea and vomiting) Qty: 10 RF: 0 ciprofloxacin HCl [Cipro] 500 mg tablet 500 mg PO BID Qty: 20 RF: 0 No Action bupropion HCl [Wellbutrin SR] 150 MG tablet extended release 12 hr 150 mg PO QDAYP Qty: 0 RF: 0 gemfibrozil 600 MG tablet 600 mg PO BIDAC Qty: 0 RF: 0 loratadine [Claritin] 10 MG tablet 10 mg PO BID Qty: 0 RF: 0 citalopram 20 MG tablet 40 mg PO QDAY Qty: 0 RF: 0 omeprazole 20 MG capsule,delayed release(DR/EC) 20 mg PO QDAY@0600 Qty: 0 RF: 0 prednisone 20 MG tablet 20 mg PO SEE INSTRUCTIONS Qty: 15 RF: 0 methocarbamol [Robaxin] 500 mg tablet 750 mg PO TID PRN (Reason: muscle pain) Qty: 60 RF: 0 meclizine 25 mg tablet 25 mg PO BID-TID PRN (Reason: motion sickness) Qty: 10 RF: 0 Referrals: Shana Berrios MD [Non-Staff] -
== END 2018-12-04 22:51 | disposition home or self-care (01) ==
PROVIDERS: Emergency Provider Emergency Medicine
DX: N12 Tubulo-interstitial nephritis, not specified as acute or chronic (principal); R10.9 Unspecified abdominal pain; R11.0 Nausea; R31.9 Hematuria, unspecified
CPT/HCPCS: 36591; 74176; 80048; 81003; 81015; 84145; 85025; 87040; 87077; 87086; 87186; 96361; 96365; 96366; 96375; 96376; 99283; 99284; J1170; J1956; J2405

== ENCOUNTER 2018-12-08 20:51 | Emergency (ER) | payer OTHER, MEDICAID, SELFPAY ==
[2018-12-08 20:56] VITALS: BP 131/77; PULSE 116; RESP 20; TEMP 36.6; O2SAT 98
[2018-12-08 21:14] LABS: Bacteria Urine None Seen; RBC Urine None Seen (0-5/HPF)
--- NOTE | 2018-12-08 21:19 | ED_ITS ---
HPI - Female Genitourinary General Chief complaint: Urogenital-Female Stated complaint: HURTS TO PEE THROWING UP NOT BETTER Time Seen by Provider: 12/08/18 21:09 Source: patient Mode of arrival: ambulatory Limitations: no limitations History of Present Illness HPI Narrative: Patient is a 53-year-old female who presents with right-sided kidney pain. She was seen evaluated here 5 days ago diagnosed with a kidney st one in the kidney and infection. She is on Cipro which is appropriate for her infection. She says she has been vomiting the last day and a half and unable to keep her antibiotics down. He is having increased pain. No fever. She continues to have urinary frequency and dysuria MD Complaint: UTI Female Urogenital Radiation: R Flank Duration: constant Relieving factors: none Related Data Home Medications Medication Instructions Recorded Confirmed bupropion HCl [Wellbutrin SR] 150 mg PO QDAYP #0 04/09/11 gemfibrozil 600 mg PO BIDAC #0 04/09/11 loratadine [Claritin] 10 mg PO BID #0 04/09/11 citalopram 40 mg PO QDAY #0 02/09/12 omeprazole 20 mg PO QDAY@0600 #0 02/09/12 Previous Rx's Medication Instructions Recorded prednisone 20 mg PO SEE INSTRUCTIONS #15 tab 04/22/16 meclizine 25 mg PO BID-TID PRN #10 tab 11/22/18 methocarbamol [Robaxin] 750 mg PO TID PRN #60 tab 11/22/18 ciprofloxacin HCl [Cipro] 500 mg PO BID #20 tab 12/04/18 hydrocodone-acetaminophen 1 tab PO Q4-6H PRN #10 tab 12/04/18 ondansetron 4 mg PO TID-QID PRN #10 tab 12/04/18 hydroxyzine pamoate [Vistaril] 25 mg PO Q6-8H PRN #10 cap 12/09/18 ondansetron 4 mg PO Q6-8H PRN #10 tab 12/09/18 oxycodone-acetaminophen [Percocet] 1 tab PO Q4-6H PRN #10 tab 12/09/18 Allergies Allergy/AdvReac Type Severity Reaction Status Date / Time amoxicillin [AMOXICILLIN] Allergy Unknown Verified 11/22/18 01:02 aspirin [ASPIRIN] Allergy Unknown Verified 11/22/18 01:02 clavulanic acid Allergy Unknown Verified 11/22/18 01:02 [CLAVULANIC ACID] diphenhydramine Allergy Unknown Verified 11/22/18 01:02 [DIPHENHYDRAMINE] erythromycin base Allergy Unknown Verified 11/22/18 01:02 [From ERYTHROCIN] ibuprofen [IBUPROFEN] Allergy Unknown Verified 11/22/18 01:02 Sulfa (Sulfonamide Allergy Unknown Verified 11/22/18 01:02 Antibiotics) [SULFA (SULFONAMIDE ANTIBIOTICS)] tetracycline [TETRACYCLINE] Allergy Unknown Verified 11/22/18 01:02 levofloxacin [From Levaquin] Allergy Rash Verified 12/09/18 00:24 Review of Systems Review of Systems GENERAL: Denies chills, fatigue, malaise, fever, sweats, travel HEENT: Denies sinus pain, ear pain, sore throat, difficulty swallowing, neck pain RESPIRATORY: Denies dyspnea, cough, wheezing, hemoptysis, sputum. CARDIOVASCULAR: Denies chest pain, palpitations, orthopnea, edema GASTROINTESTINAL: Denies nausea, vomiting, abdominal pain, diarrhea, constipation, melena. : See HPI MUSCULOSKELETAL: Denies weakness, joint pain, or bony pain SKIN: No rash, no erythema, no pruritus NEUROLOGIC: Denies weakness, dizziness, headache, numbness, change in speech, confusion PSYCHIATRIC: No concerning psychosocial issues. 12 point review of systems is negative except for those stated above and HPI [facility] Medical History Kidney stones (Acute) Gastroesophageal reflux disease (Acute) Hypothyroid (Acute) Social History Smoking Status: Current every day smoker Social History Smoking Status: Current every day smoker Exam Initial Vital Signs Initial Vital Signs: Vital Signs Temperature 97.9 F 12/08/18 20:56 Pulse Rate 116 H 12/08/18 20:56 Respiratory Rate 20 12/08/18 20:56 Blood Pressure 131/77 12/08/18 20:56 Pulse Oximetry 98 12/08/18 20:56 GENERAL: Alert male age female appears in HEENT: Head atraumatic,EOMI, pupils reactive, face symmetric, moist mucous membranes CARDIOVASCULAR: Regular rate and rhythm without murmurs, rubs or gallops. RESPIRATORY: Breath sounds equal bilaterally, no wheezes rales or rhonchi. ABDOMEN: Soft, nontender. Normoactive bowel sounds all 4 quadrants. No gua rding or rebound. :right CVA tenderness EXTREMITIES: Normal range of motion, no clubbing or edema. Neurovascularly intact NEUROLOGICAL: Alert and oriented x4. SKIN: Warm, dry, no laceration, no petechiae, no rashes or lesions. Course Orders Ordered: ED Orders 12/08/18 21:02 Urine Microscopic Stat 12/08/18 21:55 Complete Blood Count AUTO DIFF Stat Comprehensive Metabolic Panel Stat Lactate (Lactic Acid) Stat Procalcitonin Stat 12/08/18 22:22 Blood Culture Stat 12/08/18 22:37 CT kidney ureter bladder (KUB) Stat Discontinued Medications Hydromorphone HCl (Dilaudid) 0.5 mg IV NOW ONE Stop: 12/08/18 23:45 Last Admin: 12/09/18 00:08 Dose: 0.5 mg Hydroxyzine Pamoate (Vistaril) 25 mg PO NOW ONE Stop: 12/09/18 00:10 Last Admin: 12/09/18 00:16 Dose: 25 mg Levofloxacin (Levaquin) 750 mg in 150 mls @ 100 mls/hr IV NOW ONE Stop: 12/08/18 22:48 Last Infusion: 12/09/18 00:09 Dose: 0 mls/hr Admin: 12/08/18 22:20 Dose: 100 mls/hr Sodium Chloride (Normal Saline 0.9%) 1,000 mls @ 200 mls/hr IV CONT ALEXSANDER Last Admin: 12/08/18 22:21 Dose: 200 mls/hr Methylprednisolone (Solu-Medrol 125 Mg Vial) 125 mg IV NOW ONE Stop: 12/09/18 00:10 Last Admin: 12/09/18 00:16 Dose: 125 mg Morphine Sulfate (Morphine) 2 mg IV NOW ONE Stop: 12/08/18 21:22 Last Admin: 12/08/18 22:21 Dose: 2 mg Ondansetron HCl (Zofran) 4 mg IV NOW ONE Stop: 12/08/18 21:20 Last Admin: 12/08/18 22:20 Dose: 4 mg Phenazopyridine HCl (Pyridium 100mg Prepack) 1 bottle MISC SEEINSTR ONE Stop: 12/09/18 00:52 Last Admin: 12/09/18 01:24 Dose: 1 bottle Vital Signs - 8 hr 12/08/18 20:56 12/08/18 21:28 12/08/18 22:04 Temperature 97.9 F Pulse Rate 116 H 90 97 H Respiratory Rate 20 11 L 12 Blood Pressure 131/77 Blood Pressure [Right Arm] 120/82 117/67 Pulse Oximetry 98 98 96 12/09/18 01:14 Temperature 98.3 F Pulse Rate 93 H Respiratory Rate 16 Blood Pressure Blood Pressure [Right Arm] 124/85 Pulse Oximetry 99 MDM - Female Genitourinary Lab Data Attestation: I reviewed the patient's lab results. Result diagrams: 12/08/18 21:55 12/08/18 21:55 Lab Results 12/08/18 12/08/18 12/08/18 Range/Units 21:02 21:55 21:55 WBC 5.8 (4.5-11.0) X10^3/uL RBC 4.06 (4.0-5.2) X10^6/uL Hgb 12.0 (12.0-16.0) g/dL Hct 34.4 L (36-46) % MCV 84.9 (80-100) fL MCH 29.6 (26-34) PG MCHC 34.8 (30-36) % RDW 13.1 (11.6-14.8) % Plt Count 258 (150-400) X10^3/uL Neut % (Auto) 49.3 L (50-75) % Lymph % (Auto) 41.3 H (25-40) % [place] % (Auto) 5.6 (3-14) % Eos % (Auto) 3.3 (2-4) % Baso % (Auto) 0.5 (0-2) % Neut # (Auto) 2800 (6233-7342) /uL Lymph # (Auto) 2400 (9330-3566) /uL [place] # (Auto) 300 (0-900) /uL Eos # (Auto) 200 (0-450) /uL Baso # (Auto) 0 (0-100) /uL Sodium (137-145) mmol/L Potassium (3.4-5.1) mmol/L Chloride (98-107) mmol/L Carbon Dioxide (22-32) mmol/L BUN (7-17) mg/dL Creatinine (0.52-1.04) mg/dL Estimated GFR (>60) mL/min BUN/Creatinine Ratio (6-22) Glucose (70-100) mg/dL Lactate (0.7-2.1) mmol/L Calcium (8.4-10.2) mg/dL Total Bilirubin (0.2-1.3) mg/dL AST (14-36) IU/L ALT (9-52) IU/L Alkaline Phosphatase (38-126) U/L Total Protein (6.3-8.2) g/dL Albumin (3.5-5.0) g/dL Globulin (1.7-4.1) g/dL Albumin/Globulin Ratio (1.0-2.8) Procalcitonin < 0.05 (<0.5) ng/mL Urine RBC None seen (0-5/HPF) Urine WBC 5-10/hpf H (0-5/HPF) Ur Squamous Epith Cells 5-10 /hpf H (0-5/HPF) Urine Bacteria None seen (None) Ur Culture Indicated? Cult not indicated 12/08/18 12/08/18 Range/Units 21:55 21:55 WBC (4.5-11.0) X10^3/uL RBC (4.0-5.2) X10^6/uL Hgb (12.0-16.0) g/dL Hct (36-46) % MCV (80-100) fL MCH (26-34) PG MCHC (30-36) % RDW (11.6-14.8) % Plt Count (150-400) X10^3/uL Neut % (Auto) (50-75) % Lymph % (Auto) (25-40) % [place] % (Auto) (3-14) % Eos % (Auto) (2-4) % Baso % (Auto) (0-2) % Neut # (Auto) (0784-6987) /uL Lymph # (Auto) (4293-7813) /uL [place] # (Auto) (0-900) /uL Eos # (Auto) (0-450) /uL Baso # (Auto) (0-100) /uL Sodium 140 (137-145) mmol/L Potassium 3.7 (3.4-5.1) mmol/L Chloride 104 (98-107) mmol/L Carbon Dioxide 28 (22-32) mmol/L BUN 19 H (7-17) mg/dL Creatinine 0.70 (0.52-1.04) mg/dL Estimated GFR > 60.0 (>60) mL/min BUN/Creatinine Ratio 27.1 H (6-22) Glucose 109 H (70-100) mg/dL Lactate 0.9 (0.7-2.1) mmol/L Calcium 9.7 (8.4-10.2) mg/dL Total Bilirubin 0.3 (0.2-1.3) mg/dL AST 26 (14-36) IU/L ALT 45 (9-52) IU/L Alkaline Phosphatase 79 (38-126) U/L Total Protein 7.8 (6.3-8.2) g/dL Albumin 4.5 (3.5-5.0) g/dL Globulin 3.3 (1.7-4.1) g/dL Albumin/Globulin Ratio 1.4 (1.0-2.8) Procalcitonin (<0.5) ng/mL Urine RBC (0-5/HPF) Urine WBC (0-5/HPF) Ur Squamous Epith Cells (0-5/HPF) Urine Bacteria (None) Ur Culture Indicated? Urine Dip Bedside Urine Glucose Negative Bedside Urine Bilirubin - Negative Bedside Urine Ketone - Negative Urine Specific [place] 1.025 Bedside Urine Occult Blood - Negative Bedside Urine pH 6.0 Bedside Urine Protein - Negative Bedside Urine Urobilinogen - Negative Bedside Urine Nitrite - Negative Bedside Urine Leukocytes +/- [address] scan - abdomen: Radiologist's impression: assistant shift supervisor report: Calculus in the lower pole of calyx on right measuring 6 mm is unchanged. Slight prominence of intrarenal collecting system on the right compared to left unchanged. Pancreas and diabetes among. No evidence of acute pancreatitis. Mild segmental dilation of the small bowel in the upper consistent with focal adynamic ileus unchanged MDM Narrative Medical decision making narrative: This time patient does not appear septic. kidney stone has not moved. She is slightly dehydrated based on blood work. She is given 1 dose of IV Levaquin as she is not able to keep down her antibiotics. She is now tolerating fluids. She actually did involve rash just as Levaquin was finishing it was quite itchy. She has been tolerating Cipro without any problem. At this time recommend finishing Cipro. This time I think pain is due to inability keep down medication and slightly dehydrated. A creatinine remains unchanged. She has appointment with her urologist on Tuesday. Discharge Plan Departure Patient Disposition: Home Clinical Impression: Pyelonephritis, Kidney stone on right side Discharge Date/Time: 12/09/18 01:36 Interventions: ED Discharge Assessment Last Done: 12/09/18 01:31 Instructions: DI for Kidney Infection, DI for Kidney Stones Activity Restrictions/Additional Instructions: *You have been diagnosed with kidney stone right side, infection *What to do: At this time continue antibiotics as previously prescribed. Blood work is reassuring. Kidney stone is not moving. *Continue to take medications as directed Zofran 4 mg every 6-8 hours if needed for nausea or vomiting Percocet 1 tab every 6 hours as needed for severe pain Pyridium 3 times a day only if needed for burning *Follow up with your primary care provider in 2-3 days, follow up with your urologist next week as scheduled *Return to ER if you should have inability to keep down antibiotics, increasing pain, or any new, worsening or concerning symptoms CONTROLLED SUBSTANCE DISCHARGE (Narcotoic/benzodiazepine/Flexeril/Phenergan) 1. You have been prescribed narcotic medications, it does have acetaminophen/Tylenol/paracetamol in it so do not take extra Tylenol or Tylenol containing products 2. Please understand that we cannot provide further refills of narcotics, be nzodiazepines or controlled substances through the ED and her pain management will need to be through your provider. 3. While on these medications you cannot drive or operate heavy machinery. 4. You cannot sign legal documents or perform any duties such as this. 5. As long as you're taking opiate pain medications he should also be taking a stool softener such as Colace, Dulcolax, MiraLAX or prune juice, to help avoid constipation. Prescriptions: New oxycodone-acetaminophen [Percocet] 5-325 mg tablet 1 tab PO Q4-6H PRN (Reason: pain) Qty: 10 RF: 0 hydroxyzine pamoate [Vistaril] 25 mg capsule 25 mg PO Q6-8H PRN (Reason: itching) Qty: 10 RF: 0 ondansetron 4 mg tablet,disintegrating 4 mg PO Q6-8H PRN (Reason: nausea and vomiting) Qty: 10 RF: 0 No Action bupropion HCl [Wellbutrin SR] 150 MG tablet extended release 12 hr 150 mg PO QDAYP Qty: 0 RF: 0 gemfibrozil 600 MG tablet 600 mg PO BIDAC Qty: 0 RF: 0 loratadine [Claritin] 10 MG tablet 10 mg PO BID Qty: 0 RF: 0 citalopram 20 MG tablet 40 mg PO QDAY Qty: 0 RF: 0 omeprazole 20 MG capsule,delayed release(DR/EC) 20 mg PO QDAY@0600 Qty: 0 RF: 0 prednisone 20 MG tablet 20 mg PO SEE INSTRUCTIONS Qty: 15 RF: 0 hydrocodone-acetaminophen 5-325 mg tablet 1 tab PO Q4-6H PRN (Reason: pain) Qty: 10 RF: 0 ondansetron 4 mg tablet,disintegrating 4 mg PO TID-QID PRN (Reason: nausea and vomiting) Qty: 10 RF: 0 ciprofloxacin HCl [Cipro] 500 mg tablet 500 mg PO BID Qty: 20 RF: 0 methocarbamol [Robaxin] 500 mg tablet 750 mg PO TID PRN (Reason: muscle pain) Qty: 60 RF: 0 meclizine 25 mg tablet 25 mg PO BID-TID PRN (Reason: motion sickness) Qty: 10 RF: 0
[2018-12-08 21:22] LABS: Culture Indicated Urine Cult Not Indicated; Squamous Epithelial Cell Urine 5-10 /HPF (0-5/HPF); WBC Urine 5-10/HPF (0-5/HPF)
[2018-12-08 21:28] VITALS: BP 120/82; PULSE 90; RESP 11; O2SAT 98
[2018-12-08 22:04] VITALS: BP 117/67; PULSE 97; RESP 12; O2SAT 96
[2018-12-08 22:05] LABS: Add Manual Diff / Slide Review NO; Basophils Absolute Auto 0 /uL (0-100); Basophils Percent Auto 0.5 % (0-2); Eosinophils Absolute Auto 200 /uL (0-450); Eosinophils Percent Auto 3.3 % (2-4); Hematocrit 34.4 % (36-46); Lymphocytes Absolute Auto 2400 /uL (1100-4500); Lymphocytes Percent Auto 41.3 % (25-40); Mean Corpuscular HGB Conc 34.8 % (30-36); Mean Corpuscular Hemoglobin 29.6 PG (26-34); Mean Corpuscular Volume 84.9 fL (80-100); Monocytes Absolute Auto 300 /uL (0-900); Monocytes Percent Auto 5.6 % (3-14); Neutrophils Absolute Auto 2800 /uL (1500-7000); Neutrophils Percent Auto 49.3 % (50-75); Platelet Count 258 X10^3/uL (150-400); Red Blood Cell Count 4.06 X10^6/uL (4.0-5.2); Red Cell Distribution Width 13.1 % (11.6-14.8); White Blood Cell Count 5.8 X10^3/uL (4.5-11.0)
[2018-12-08] MEDS: ONDANSETRON 4 MG/2 ML INJ IV (22:20)
[2018-12-08] MEDS: levoFLOXacin 750 MG/150 ML PIGGYBACK 100 MG IV (22:20)
[2018-12-08] MEDS: SODIUM CHLORIDE 0.9% 1,000 ML 200 ML IV (22:21)
[2018-12-08] MEDS: MORPHINE 2 MG/ML INJ IV (22:21)
[2018-12-08 22:28] LABS: Alanine Aminotransferase 45 IU/L (9-52); Albumin 4.5 g/dL (3.5-5.0); Albumin Globulin Ratio 1.4 (1.0-2.8); Alkaline Phosphatase 79 U/L (38-126); Aspartate Aminotransferase 26 IU/L (14-36); BUN Creatinine Ratio 27.1 (6-22); Bilirubin Total 0.3 mg/dL (0.2-1.3); Blood Urea Nitrogen 19 mg/dL (7-17); Calcium 9.7 mg/dL (8.4-10.2); Carbon Dioxide 28 mmol/L (22-32); Chloride 104 mmol/L (98-107); Estimated Glomerular Filt Rate > 60.0 mL/min (>60); Globulin 3.3 g/dL (1.7-4.1); Glucose 109 mg/dL (70-100); HEMOLYSIS < 15 (0-50); Lactate (Lactic Acid) 0.9 mmol/L (0.7-2.1); Potassium 3.7 mmol/L (3.4-5.1); Sodium 140 mmol/L (137-145); Total Protein 7.8 g/dL (6.3-8.2)
[2018-12-08 22:35] LABS: Procalcitonin < 0.05 ng/mL (<0.5)
--- NOTE | 2018-12-08 22:37 | DI.CT.S_ITS ---
PROCEDURE: CT KIDNEY URETER BLADDER (KUB) INDICATIONS: right kidney stone increased pain TECHNIQUE: Noncontrast 5 mm thick sections acquired from the diaphragms to the symphysis. 5 mm thick coronal and sagittal reformats were then performed. For radiation dose reduction, the following was used: automated exposure control, adjustment of mA and/or kV according to patient size. COMPARISON: [facility], CT, CT KIDNEY URETER BLADDER (KUB), 12/04/2018, 20:00. FINDINGS: Image quality: Excellent. Lung bases: Lung bases are clear. Heart size is normal. Urinary system: Both kidneys are normal in size. Previously identified inferior right renal pole calcification is unchanged. There remains a minimal appearance of prominence of the right renal collecting system. Both ureters appear non-dilated throughout their expected courses. Bladder wall thickness is normal; no calcified bladder stones. Other solid organs: Liver is mildly enlarged with steatosis. A that the liver is not fully included within the [id number]. Gallbladder has been removed. Pancreas is normal in contours. Spleen is normal in size. No adrenal nodules. Peritoneum and bowel: Unenhanced bowel loops demonstrate normal wall thickness and caliber. No free fluid or air. Nodes and vessels: No retroperitoneal or mesenteric adenopathy by size criteria. Aorta and inferior vena cava are normal in caliber. Abdominal wall: No ventral hernias. Pelvis: No free pelvic fluid. No inguinal hernias or adenopathy. Bones: No suspicious bony lesions. No vertebral body compression fractures. IMPRESSION: 1. Stable right renal calculus with slight prominence of the renal collecting system, unchanged. The above findings are concordant with preliminary report. Dictated by: Alka Sanchez M.D. on 12/09/2018 at 9:45 Approved by: Alka Sanchez M.D. on 12/09/2018 at 9:56
[2018-12-09] MEDS: HYDROMORPHONE 1 MG INJ 0.5 MG IV (00:08)
[2018-12-09] MEDS: methylPREDNISolone 125 MG/2 ML VIAL IV (00:16)
[2018-12-09] MEDS: hydrOXYzine pamoate 25 MG CAPSULE PO (00:16)
[2018-12-09 01:14] VITALS: BP 124/85; PULSE 93; RESP 16; TEMP 36.8; O2SAT 99
[2018-12-09] MEDS: PHENAZOPYRIDINE 100 MG PREPACK 1 BOTTLE MISC (01:24)
--- NOTE | 2018-12-23 19:33 | PC.NURSE ---
Late entry IV stop time 0120 12/09/18. Total volume infused 1000ml.
== END 2018-12-09 01:36 | disposition home or self-care (01) ==
PROVIDERS: Emergency Provider Emergency Medicine
DX: N12 Tubulo-interstitial nephritis, not specified as acute or chronic (principal); N20.0 Calculus of kidney
CPT/HCPCS: 36415; 36591; 74176; 80053; 81003; 81015; 83605; 84145; 85025; 87040; 96361; 96365; 96366; 96375; 99283; 99284; J1170; J1956; J2270; J2405; J2930

== ENCOUNTER 2019-01-01 16:47 | Emergency (ER) | payer OTHER, MEDICAID, SELFPAY ==
--- NOTE | 2019-01-01 16:55 | DI.RAD.S_ITS ---
PROCEDURE: XR SHOULDER RT MIN 2V INDICATIONS: pain for 3 weeks unknown etiology TECHNIQUE: 30 views of the shoulder were acquired. COMPARISON: [facility], , SHOULDER MINIMUM 2 VIEW LEFT, 06/06/2011, 16:22. FINDINGS: Bones: No fractures or dislocations. There is mild acromioclavicular joint degeneration. No suspicious bony lesions. Visualized ribs appear intact. Soft tissues: No suspicious soft tissue calcifications. IMPRESSION: 1. No fracture or subluxation. 2. Mild acromioclavicular joint degeneration. Dictated by: Ajay Birmingham M.D. on 01/01/2019 at 17:33 Approved by: Ajay Birmingham M.D. on 01/01/2019 at 17:34
[2019-01-01 16:57] VITALS: BP 118/75; PULSE 90; RESP 12; TEMP 36.3; O2SAT 100
--- NOTE | 2019-01-01 18:23 | ED.EXTPRO ---
HPI - Extremity Problem <Socorro Contreras PA-C - Last Filed: 01/01/19 22:07> General Chief complaint: Extremity Problem,Nontraumatic Stated complaint: UNABLE TO MOVE RIGHT SHOULDER Time Seen by Provider: 01/01/19 18:02 Source: patient Mode of arrival: ambulatory Limitations: no limitations History of Present Illness HPI Narrative: This 53-year-old female comes to ED secondary to worsening chronic shoulder pain. She states that this started about 2 months ago without any trauma. She states that she was seen at another local emergency room 3 weeks ago and given a sling but this did not help. She states she has not seen her PCP for this due to difficulty getting an appointment. She states that she is unable to sleep at night due to the pain and also having pain with any type of movement. She denies any weakness or paresthesia and states it is pain that keeps her from movement. She denies any other complaints on systems review today. She has been taking Tylenol at home without relief. She tried Robaxin without relief. She tried a lidocaine patch but did not adhere well. She states that it did not help. Past Medical History Chronic back pain Fibromyalgia Hypertension Dyslipidemia GERD Anxiety Restless leg syndrome Herniated disc, probably L5. Past Surgical History Partial hysterectomy Cholecystectomy 14 tooth extraction Related Data Home Medications Medication Instructions Recorded Confirmed bupropion HCl [Wellbutrin SR] 150 mg PO QDAYP #0 04/09/11 gemfibrozil 600 mg PO BIDAC #0 04/09/11 loratadine [Claritin] 10 mg PO BID #0 04/09/11 citalopram 40 mg PO QDAY #0 02/09/12 omeprazole 20 mg PO QDAY@0600 #0 02/09/12 Previous Rx's Medication Instructions Recorded prednisone 20 mg PO SEE INSTRUCTIONS #15 tab 04/22/16 meclizine 25 mg PO BID-TID PRN #10 tab 11/22/18 methocarbamol [Robaxin] 750 mg PO TID PRN #60 tab 11/22/18 ciprofloxacin HCl [Cipro] 500 mg PO BID #20 tab 12/04/18 hydrocodone-acetaminophen 1 tab PO Q4-6H PRN #10 tab 12/04/18 ondansetron 4 mg PO TID-QID PRN #10 tab 12/04/18 hydroxyzine pamoate [Vistaril] 25 mg PO Q6-8H PRN #10 cap 12/09/18 ondansetron 4 mg PO Q6-8H PRN #10 tab 12/09/18 oxycodone-acetaminophen [Percocet] 1 tab PO Q4-6H PRN #10 tab 12/09/18 lidocaine 2 patch TOP Q24H #30 each 01/01/19 oxycodone-acetaminophen [Endocet] 1 tab PO .hs PRN #2 tab 01/01/19 Allergies Allergy/AdvReac Type Severity Reaction Status Date / Time amoxicillin [AMOXICILLIN] Allergy Unknown Verified 11/22/18 01:02 aspirin [ASPIRIN] Allergy Unknown Verified 11/22/18 01:02 clavulanic acid Allergy Unknown Verified 11/22/18 01:02 [CLAVULANIC ACID] diphenhydramine Allergy Unknown Verified 11/22/18 01:02 [DIPHENHYDRAMINE] erythromycin base Allergy Unknown Verified 11/22/18 01:02 [From ERYTHROCIN] ibuprofen [IBUPROFEN] Allergy Unknown Verified 11/22/18 01:02 Sulfa (Sulfonamide Allergy Unknown Verified 11/22/18 01:02 Antibiotics) [SULFA (SULFONAMIDE ANTIBIOTICS)] tetracycline [TETRACYCLINE] Allergy Unknown Verified 11/22/18 01:02 levofloxacin [From Levaquin] Allergy Rash Verified 12/09/18 00:24 Review of Systems <Socorro Contreras PA-C - Last Filed: 01/01/19 22:07> Review of Systems ROS Unobtainable: All systems reviewed & are unremarkable except as noted in HPI and below PFSH <Socorro Contreras PA-C - Last Filed: 01/01/19 22:07> Social History Smoking Status: Current every day smoker Exam <Socorro Contreras PA-C - Last Filed: 01/01/19 22:07> Narrative Exam Narrative: GENERAL APPEARANCE: Patient sitting comfortably, in no distress. LUNGS: Clear to auscultation bilaterally. HEART: Rate and rhythm regular without murmur, normal S1 and S2, no S3 or S4. MUSCULOSKELETAL: Right shoulder is tender from the AC joint lateral throughout the lateral shoulder and deltoid area. No point tenderness. she is able to abduct to 90? but and able to maintain secondary to tenderness. Will not attempt resisted abduction. She has reduced extension more than flexion secondary to tenderness. Tender with R. forearm supination. Will not attempt rotation. Technology Consultant strength 5/5 bilaterally. NEUROVASCULAR: Right hand fingers are warm and pink with brisk cap refill, sensation grossly intact Initial Vital Signs Initial Vital Signs: Vital Signs Temperature 97.3 F L 01/01/19 16:57 Pulse Rate 90 01/01/19 16:57 Respiratory Rate 12 01/01/19 16:57 Blood Pressure 118/75 01/01/19 16:57 Pulse Oximetry 100 01/01/19 16:57 <DO Ranjit Bass Last Filed: 01/02/19 01:44> Initial Vital Signs Initial Vital Signs: Vital Signs Temperature 97.3 F L 01/01/19 16:57 Pulse Rate 90 01/01/19 16:57 Respiratory Rate 12 01/01/19 16:57 Blood Pressure 118/75 01/01/19 16:57 Pulse Oximetry 100 01/01/19 16:57 Course <JOSHUA Benavides Last Filed: 01/01/19 22:07> Additional Information: Advised patient that she needs to see her PCP as she has had this pain for 2 months, worsening, with 2 ED visits. I gave her a prescription for pain medication for this evening only, advised other pain medication prescriptions need to come from her PCP. Advised change to Tylenol arthritis [id number] as she is using extra-strength Tylenol. Trial of Lidoderm patches, and [id number] exercises reviewed. She will schedule with PCP tomorrow. Orders Ordered: ED Orders 01/01/19 16:55 XR shoulder RT min 2V Stat Vital Signs - 8 hr 01/01/19 16:57 Temperature 97.3 F L Pulse Rate 90 Respiratory Rate 12 Blood Pressure 118/75 Pulse Oximetry 100 <DO Ranjit Bass Filed: 01/02/19 01:44> Orders Ordered: ED Orders 01/01/19 16:55 XR shoulder RT min 2V Stat Vital Signs - 8 hr 01/01/19 16:57 Temperature 97.3 F L Pulse Rate 90 Respiratory Rate 12 Blood Pressure 118/75 Pulse Oximetry 100 MDM - Extremity (Nontraumatic) <JOSHUA Benavides Last Filed: 01/01/19 22:07> Imaging Data shoulder: Radiologist's impression: [id number] [place] [address] XRay Report Signed Patient: Rabia Arthur EMR#: [id number] : 1965Acct:[id number] Age/Sex: 53 / FDate of Service: 01/01/19 Loc: ED Accession Number: [id number] Procedure: XR shoulder RT min 2V Ordering Provider: Emil Ascencio D.O. PROCEDURE: XR SHOULDER RT MIN 2V INDICATIONS: pain for 3 weeks unknown etiology TECHNIQUE: 30 views of the shoulder were acquired. COMPARISON: [facility], , SHOULDER MINIMUM 2 VIEW LEFT, 06/06/2011, 16:22. FINDINGS: Bones: No fractures or dislocations. There is mild acromioclavicular joint degeneration. No suspicious bony lesions. Visualized ribs appear intact. Soft tissues: No suspicious soft tissue calcifications. IMPRESSION: 1. No fracture or subluxation. 2. Mild acromioclavicular joint degeneration. Dictated by: Ajay Birmingham M.D. on 01/01/2019 at 17:33 Approved by: Ajay Birmingham M.D. on 01/01/2019 at 17:34 Discharge Plan Departure Patient Disposition: Home Clinical Impression: Impingement syndrome, shoulder Qualifiers: Laterality: right Qualified Code(s): M75.41 - Impingement syndrome of right shoulder Discharge Date/Time: 01/01/19 19:12 Interventions: ED Discharge Assessment Last Done: 01/01/19 19:11 Instructions: DI for Shoulder Pain Activity Restrictions/Additional Instructions: I think that you have an impingement syndrome in your right shoulder along with muscle strain in some of the rotator cuff muscles. You need to follow up with your PCP for this, so please call 1st thing tomorrow or sent a message on your electronic record to get set up for an appointment in the next few days since this is worsening. Let them know you have been seen at the emergency room twice. As we talked about, you may need further testing, or physical therapy. Please do the exercises we talked about several times daily to help with mobility. Please change to Tylenol arthritis Strength or 8 hour (650 mg per tablet) since this is longer lasting, and you can take 1 tablet every 8 hours. You can take an additional tablet once daily as needed. I have also prescribed lidocaine patches for you. I have prescribed Percocet for you for this evening to help with sleep, but cannot prescribe controlled substances again for this pain, you will need to get more pain medicine from your PCP if it is needed. Prescriptions: New oxycodone-acetaminophen [Endocet] 5-325 mg tablet 1 tab PO .hs PRN (Reason: pain) Qty: 2 RF: 0 lidocaine 5 % adhesive patch,medicated 2 patch TOP Q24H Qty: 30 RF: 0 No Action bupropion HCl [Wellbutrin SR] 150 MG tablet extended release 12 hr 150 mg PO QDAYP Qty: 0 RF: 0 gemfibrozil 600 MG tablet 600 mg PO BIDAC Qty: 0 RF: 0 loratadine [Claritin] 10 MG tablet 10 mg PO BID Qty: 0 RF: 0 citalopram 20 MG tablet 40 mg PO QDAY Qty: 0 RF: 0 omeprazole 20 MG capsule,delayed release(DR/EC) 20 mg PO QDAY@0600 Qty: 0 RF: 0 prednisone 20 MG tablet 20 mg PO SEE INSTRUCTIONS Qty: 15 RF: 0 hydrocodone-acetaminophen 5-325 mg tablet 1 tab PO Q4-6H PRN (Reason: pain) Qty: 10 RF: 0 ondansetron 4 mg tablet,disintegrating 4 mg PO TID-QID PRN (Reason: nausea and vomiting) Qty: 10 RF: 0 ciprofloxacin HCl [Cipro] 500 mg tablet 500 mg PO BID Qty: 20 RF: 0 oxycodone-acetaminophen [Percocet] 5-325 mg tablet 1 tab PO Q4-6H PRN (Reason: pain) Qty: 10 RF: 0 hydroxyzine pamoate [Vistaril] 25 mg capsule 25 mg PO Q6-8H PRN (Reason: itching) Qty: 10 RF: 0 ondansetron 4 mg tablet,disintegrating 4 mg PO Q6-8H PRN (Reason: nausea and vomiting) Qty: 10 RF: 0 methocarbamol [Robaxin] 500 mg tablet 750 mg PO TID PRN (Reason: muscle pain) Qty: 60 RF: 0 meclizine 25 mg tablet 25 mg PO BID-TID PRN (Reason: motion sickness) Qty: 10 RF: 0 Referrals: Samara Camacho [Non-Staff] - <Rosina Francis DO - Last Filed: 01/02/19 01:44> Cosign ED Attending William Attestation: I was immediately available in the department for consultation. Documentation has been reviewed. I agree with assessment and plan.
== END 2019-01-01 19:12 | disposition home or self-care (01) ==
PROVIDERS: Emergency Provider Internal Medicine
DX: M75.41 Impingement syndrome of right shoulder (principal)
CPT/HCPCS: 73030; 99282; 99283

== ENCOUNTER 2019-01-27 20:04 | Emergency (ER) | payer OTHER, MEDICAID, SELFPAY ==
[2019-01-27 20:11] VITALS: BP 117/82; PULSE 89; RESP 18; TEMP 36.3; O2SAT 99; BMI 24.0
--- NOTE | 2019-01-27 21:13 | ED.BACK ---
HPI - Back Pain/Injury General Chief Complaint: Back Pain/Injury Stated Complaint: says kidney stone is moving Time Seen by Provider: 01/27/19 21:13 Source: patient and family Mode of arrival: ambulatory Limitations: no limitations History of Present Illness HPI Narrative: 53-year-old female smoker with history of hypertension and kidney stones presents with severe right flank pain and radiation into her right groin. She states it feels like prior kidney stones. Her pain is worse with motion and improves with rest. She has had nausea and vomiting and denies fever but has had chills. She denies dysuria, frequency or urgency. She denies any obvious hematuria. MD Complaint: back pain Onset (ago): day(s) Duration: intermittent Similar Symptoms Previously: Yes Location: right flank Severity: moderate Quality: burning and sharp Radiation: groin Relieving factors: immobilization Exacerbating factors: movement Associated symptoms: chills Related Data Home Medications Medication Instructions Recorded Confirmed bupropion HCl [Wellbutrin SR] 150 mg PO QDAYP #0 04/09/11 gemfibrozil 600 mg PO BIDAC #0 04/09/11 loratadine [Claritin] 10 mg PO BID #0 04/09/11 citalopram 40 mg PO QDAY #0 02/09/12 omeprazole 20 mg PO QDAY@0600 #0 02/09/12 Previous Rx's Medication Instructions Recorded prednisone 20 mg PO SEE INSTRUCTIONS #15 tab 04/22/16 meclizine 25 mg PO BID-TID PRN #10 tab 11/22/18 methocarbamol [Robaxin] 750 mg PO TID PRN #60 tab 11/22/18 ciprofloxacin HCl [Cipro] 500 mg PO BID #20 tab 12/04/18 hydrocodone-acetaminophen 1 tab PO Q4-6H PRN #10 tab 12/04/18 ondansetron 4 mg PO TID-QID PRN #10 tab 12/04/18 hydroxyzine pamoate [Vistaril] 25 mg PO Q6-8H PRN #10 cap 12/09/18 ondansetron 4 mg PO Q6-8H PRN #10 tab 12/09/18 oxycodone-acetaminophen [Percocet] 1 tab PO Q4-6H PRN #10 tab 12/09/18 lidocaine 2 patch TOP Q24H #30 each 01/01/19 oxycodone-acetaminophen [Endocet] 1 tab PO .hs PRN #2 tab 01/01/19 oxycodone 5 mg PO Q4-6H PRN #10 tab 01/28/19 Allergies Allergy/AdvReac Type Severity Reaction Status Date / Time amoxicillin [AMOXICILLIN] Allergy Unknown Verified 11/22/18 01:02 aspirin [ASPIRIN] Allergy Unknown Verified 11/22/18 01:02 clavulanic acid Allergy Unknown Verified 11/22/18 01:02 [CLAVULANIC ACID] diphenhydramine Allergy Unknown Verified 11/22/18 01:02 [DIPHENHYDRAMINE] erythromycin base Allergy Unknown Verified 11/22/18 01:02 [From ERYTHROCIN] ibuprofen [IBUPROFEN] Allergy Unknown Verified 11/22/18 01:02 Sulfa (Sulfonamide Allergy Unknown Verified 11/22/18 01:02 Antibiotics) [SULFA (SULFONAMIDE ANTIBIOTICS)] tetracycline [TETRACYCLINE] Allergy Unknown Verified 11/22/18 01:02 acetaminophen [From Vicodin] Allergy Verified 01/28/19 00:46 hydrocodone [From Vicodin] Allergy Verified 01/28/19 00:46 levofloxacin [From Levaquin] Allergy Rash Verified 12/09/18 00:24 Review of Systems Constitutional Denies chills, Denies fever(s), Denies lethargy and Denies weakness Eyes Denies change in vision, Denies eye discharge, Denies irritation and Denies loss of vision ENT Ears, Nose, Mouth, and Throat: Denies change in voice, Denies neck pain and Denies sore throat Cardiovascular Denies chest pain, Denies irregular heart rhythm, Denies lightheadedness, Denies palpitations, Denies dyspnea, Denies dyspnea on exertion and Denies orthopnea Respiratory Denies cough, Denies dyspnea, Denies dyspnea on exertion and Denies wheezing Gastrointestinal Gastrointestinal: Denies abdominal pain, Denies change in bowel habits, Denies diarrhea, Reports nausea and Reports vomiting Genitourinary Denies hematuria, Reports flank pain, Denies urinary incontinence and Denies urinary urgency Musculoskeletal Denies neck pain Integumentary/Breasts Denies pruritus, Denies erythema, Denies rash and Denies wounds Neurologic Denies confusion, Denies loss of vision and Denies weakness Psychiatric Denies anxiety, Denies confusion, Denies depression, Denies homicidal ideation and Denies suicidal ideation Endocrine Denies palpitations Hematologic/Lymphatic Denies easy bruising Allergic/Immunologic Denies wheezing [facility] History Gastroesophageal reflux disease (Acute) Hypothyroid (Acute) Kidney stones (Acute) Social History Smoking Status: Current every day smoker Social History Smoking Status: Current every day smoker Exam Narrative Exam Narrative: GENERAL: 53-year-old female appears stated age, obviously uncomfortable and massaging her right flank HEAD: Atraumatic. Normocephalic. No temporal or scalp tenderness. EYES: Pupils equal round and reactive. Extraocular motions intact. No scleral icterus. No injection or drainage. ENT: Nose without bleeding, purulent drainage or septal hematoma. Throat without erythema, tonsillar hypertrophy or exudate. Uvula midline. Airway patent. NECK: Trachea midline. No JVD or lymphadenopathy. Supple, nontender, no meningeal signs. CARDIOVASCULAR: Regular rate and rhythm without murmurs, gallops, or rubs. RESPIRATORY: Clear to auscultation. Breath sounds equal bilaterally. No wheezes, rales, or rhonchi. GASTROINTESTINAL: Abdomen soft, non-tender, nondistended. No hepato-splenomegaly, or palpable masses. No guarding. EXTREMITIES: No clubbing, cyanosis, or edema. No joint tenderness, effusion, or edema noted. BACK: Right flank tenderness to palpation NEURO: AOx3. SKIN: No rash or erythema. Initial Vital Signs Initial Vital Signs: Vital Signs Temperature 97.4 F L 01/27/19 20:11 Pulse Rate 89 01/27/19 20:11 Respiratory Rate 18 01/27/19 20:11 Blood Pressure 117/82 01/27/19 20:11 Pulse Oximetry 99 01/27/19 20:11 Course Orders Ordered: ED Orders 01/27/19 21:15 Basic Metabolic Panel Stat Complete Blood Count AUTO DIFF Stat Urinalysis and Microscopic Stat Urine Culture Stat 01/27/19 21:18 US renal complete Stat Ondansetron HCl (Zofran) 4 mg IV Q4HR PRN PRN Reason: Nausea And Vomiting Last Admin: 01/27/19 22:47 Dose: 4 mg Discontinued Medications Hydrocodone Bitart/Acetaminophen (Vicodin Prepack) 1 bottle MISC SEEINSTR ONE Stop: 01/28/19 00:25 Last Admin: 01/28/19 00:47 Dose: Not Given Hydromorphone HCl (Dilaudid) 0.5 mg IV NOW ONE Stop: 01/27/19 23:20 Last Admin: 01/27/19 23:34 Dose: 0.5 mg Lidocaine HCl 5.1 ml/ Sodium (Chloride) 55.1 mls @ 330.6 mls/hr IV NOW ONE Stop: 01/27/19 21:19 Last Infusion: 01/27/19 22:56 Dose: 0 mls/hr Admin: 01/27/19 22:48 Dose: 330.6 mls/hr Sodium Chloride (Normal Saline 0.9%) 1,000 mls @ 1,000 mls/hr IV BOLUS ONE Stop: 01/27/19 22:17 Last Infusion: 01/28/19 00:47 Dose: 0 mls/hr Admin: 01/27/19 22:46 Dose: 1,000 mls/hr Oxycodone/Acetaminophen (Endocet 5/325 Prepack) 1 bottle MISC SEEINSTR ONE Stop: 01/28/19 00:51 Vital Signs - 8 hr 01/27/19 20:11 01/27/19 21:30 01/27/19 22:30 Temperature 97.4 F L Pulse Rate 89 87 85 Respiratory Rate 18 18 14 Blood Pressure 117/82 Blood Pressure [Left Arm] 109/70 117/63 Pulse Oximetry 99 96 99 01/27/19 23:00 Temperature Pulse Rate 84 Respiratory Rate 16 Blood Pressure Blood Pressure [Left Arm] 116/68 Pulse Oximetry 97 MDM - Back Pain/Injury Lab Data Result diagrams: 01/27/19 21:15 01/27/19 21:15 Lab Results 01/27/19 01/27/19 01/27/19 Range/Units 21:15 21:15 21:15 WBC 8.7 (4.5-11.0) X10^3/uL RBC 4.27 (4.0-5.2) X10^6/uL Hgb 12.6 (12.0-16.0) g/dL Hct 36.6 (36-46) % MCV 85.8 (80-100) fL MCH 29.5 (26-34) PG MCHC 34.4 (30-36) % RDW 12.8 (11.6-14.8) % Plt Count 243 (150-400) X10^3/uL Neut % (Auto) 59.6 (50-75) % Lymph % (Auto) 32.3 (25-40) % [place] % (Auto) 4.7 (3-14) % Eos % (Auto) 2.8 (2-4) % Baso % (Auto) 0.6 (0-2) % Neut # (Auto) 5200 (8844-1585) /uL Lymph # (Auto) 2800 (2319-9290) /uL [place] # (Auto) 400 (0-900) /uL Eos # (Auto) 200 (0-450) /uL Baso # (Auto) 100 (0-100) /uL Sodium 142 (137-145) mmol/L Potassium 3.4 (3.4-5.1) mmol/L Chloride 100 (98-107) mmol/L Carbon Dioxide 33 H (22-32) mmol/L BUN 15 (7-17) mg/dL Creatinine 0.90 (0.52-1.04) mg/dL Estimated GFR > 60.0 (>60) mL/min BUN/Creatinine Ratio 16.7 (6-22) Glucose 99 (70-100) mg/dL Calcium 10.1 (8.4-10.2) mg/dL Urine Color Yellow Urine Appearance Clear Urine pH 6.5 (4.5-8.0) Ur Specific [place] <=1.005 (1.000-1.035) Urine Protein Negative (Negative) Urine Glucose (UA) Negative (Negative) g/dL Urine Ketones Negative (NEGATIVE) Urine Occult Blood Negative (Negative) Urine Nitrate Negative (Negative) Urine Bilirubin Negative (NEGATIVE) Urine Urobilinogen 0.2 (0.2) E.U./dL Ur Leukocyte Esterase Trace H (NEGATIVE) Urine RBC None seen (0-5/HPF) Urine WBC 1-5/hpf (0-5/HPF) Ur Squamous Epith Cells 0-1 /hpf (0-5/HPF) Urine Bacteria Few (2-10) H (None) Ur Culture Indicated? Specimen cultured Imaging Data US - abdomen: Radiologist's impression: Nonobstructing R renal stone MDM Narrative Medical decision making narrative: Multiple etiologies for patient's symptoms considered including: [renal colic vs. kidney stones vs. shingles vs. musculoskeletal vs. other Patient's symptoms improved or duration of stay with above-stated therapies. Findings and discharge diagnosis discussed with patient/family followed by verbalization of understanding Return precautions discussed with patient/family whom verbalize understanding. Discharge Plan Departure Patient Disposition: Home Clinical Impression: Acute flank pain Instructions: DI for Flank Pain Activity Restrictions/Additional Instructions: You have been prescribed narcotic medications. While on these medications you cannot drive or operate heavy machinery. Additionally you cannot sign legal documents or perform any duties such as this. Many people get constipated on narcotic medications so it would be advisable to discuss stool softeners with the pharmacist when you picking tech your prescription. Please understand that we cannot provide further refills of narcotics or controlled substances through the ED and your pain management will need to be through your Primary Care Provider Prescriptions: New oxycodone 5 mg tablet 5 mg PO Q4-6H PRN (Reason: pain) Qty: 10 RF: 0 No Action bupropion HCl [Wellbutrin SR] 150 MG tablet extended release 12 hr 150 mg PO QDAYP Qty: 0 RF: 0 gemfibrozil 600 MG tablet 600 mg PO BIDAC Qty: 0 RF: 0 loratadine [Claritin] 10 MG tablet 10 mg PO BID Qty: 0 RF: 0 citalopram 20 MG tablet 40 mg PO QDAY Qty: 0 RF: 0 omeprazole 20 MG capsule,delayed release(DR/EC) 20 mg PO QDAY@0600 Qty: 0 RF: 0 prednisone 20 MG tablet 20 mg PO SEE INSTRUCTIONS Qty: 15 RF: 0 hydrocodone-acetaminophen 5-325 mg tablet 1 tab PO Q4-6H PRN (Reason: pain) Qty: 10 RF: 0 ondansetron 4 mg tablet,disintegrating 4 mg PO TID-QID PRN (Reason: nausea and vomiting) Qty: 10 RF: 0 ciprofloxacin HCl [Cipro] 500 mg tablet 500 mg PO BID Qty: 20 RF: 0 oxycodone-acetaminophen [Percocet] 5-325 mg tablet 1 tab PO Q4-6H PRN (Reason: pain) Qty: 10 RF: 0 hydroxyzine pamoate [Vistaril] 25 mg capsule 25 mg PO Q6-8H PRN (Reason: itching) Qty: 10 RF: 0 ondansetron 4 mg tablet,disintegrating 4 mg PO Q6-8H PRN (Reason: nausea and vomiting) Qty: 10 RF: 0 methocarbamol [Robaxin] 500 mg tablet 750 mg PO TID PRN (Reason: muscle pain) Qty: 60 RF: 0 meclizine 25 mg tablet 25 mg PO BID-TID PRN (Reason: motion sickness) Qty: 10 RF: 0 oxycodone-acetaminophen [Endocet] 5-325 mg tablet 1 tab PO .hs PRN (Reason: pain) Qty: 2 RF: 0 lidocaine 5 % adhesive patch,medicated 2 patch TOP Q24H Qty: 30 RF: 0 Referrals: Shana Berrios MD [Non-Staff] -
--- NOTE | 2019-01-27 21:18 | DI.US.S_ITS ---
PROCEDURE: US RENAL COMPLETE INDICATIONS: RIGHT FLANK PAIN, HISTORY OF STONES TECHNIQUE: Real-time scanning was performed of the kidneys and bladder, with image documentation. COMPARISON: [facility], CT, CT KIDNEY URETER BLADDER (KUB), 12/08/2018, 22:48. FINDINGS: Kidneys: Kidneys are normal in size. Right kidney measures 10.2 cm long; left kidney measures 9.8 cm long. Right renal cortical thickness is 1.1 cm; left renal cortical thickness is 1.1 cm. Renal cortical echotexture is normal. A 6 mm shadowing inferior right renal calculus is present. Mild prominence of the right renal pelvis is evident without kendrick hydronephrosis. No shadowing renal calculi or hydronephrosis on the left is evident. No suspicious solid mass lesions. Bladder: Pre-void bladder volume is 120 mL. Post-void residual is zero mL. Pre-void images demonstrate no intraluminal masses or stones. Miscellaneous: No free pelvic fluid. IMPRESSION: 1. Right-sided nephrolithiasis with questionable minimal hydronephrosis. 2. Unremarkable left kidney. Note: The preliminary Real Radiology report and the final report are concordant. Dictated by: Sundar Carrillo M.D. on 01/28/2019 at 6:55 Approved by: Sundar Carrillo M.D. on 01/28/2019 at 6:58
[2019-01-27 21:30] VITALS: BP 109/70; PULSE 87; RESP 18; O2SAT 96
[2019-01-27 21:30] LABS: Add Manual Diff / Slide Review NO; Basophils Absolute Auto 100 /uL (0-100); Basophils Percent Auto 0.6 % (0-2); Eosinophils Absolute Auto 200 /uL (0-450); Eosinophils Percent Auto 2.8 % (2-4); Hematocrit 36.6 % (36-46); Hemoglobin 12.6 g/dL (12.0-16.0); Lymphocytes Absolute Auto 2800 /uL (1100-4500); Lymphocytes Percent Auto 32.3 % (25-40); Mean Corpuscular HGB Conc 34.4 % (30-36); Mean Corpuscular Hemoglobin 29.5 PG (26-34); Mean Corpuscular Volume 85.8 fL (80-100); Monocytes Absolute Auto 400 /uL (0-900); Monocytes Percent Auto 4.7 % (3-14); Neutrophils Absolute Auto 5200 /uL (1500-7000); Neutrophils Percent Auto 59.6 % (50-75); Platelet Count 243 X10^3/uL (150-400); Red Blood Cell Count 4.27 X10^6/uL (4.0-5.2); Red Cell Distribution Width 12.8 % (11.6-14.8); White Blood Cell Count 8.7 X10^3/uL (4.5-11.0)
[2019-01-27 21:31] LABS: RBC Urine None Seen (0-5/HPF)
[2019-01-27 21:32] LABS: Appearance Urine UA CLEAR; Bilirubin Urine UA NEGATIVE (NEGATIVE); Color Urine UA YELLOW; Glucose Urine UA NEGATIVE (Negative); Ketones Urine UA NEGATIVE (NEGATIVE); Leukocyte Esterase Urine UA TRACE (NEGATIVE); Nitrite Urine UA NEGATIVE (Negative); Occult Blood Urine UA NEGATIVE (Negative); Protein Urine UA NEGATIVE (Negative); Specific Gravity Urine UA <=1.005 (1.000-1.035); Urobilinogen Urine UA 0.2 E.U./dL (0.2); pH Urine UA 6.5 (4.5-8.0)
[2019-01-27 21:39] LABS: WBC Urine 1-5/HPF (0-5/HPF)
[2019-01-27 21:40] LABS: BUN Creatinine Ratio 16.7 (6-22); Bacteria Urine Few (2-10); Blood Urea Nitrogen 15 mg/dL (7-17); Calcium 10.1 mg/dL (8.4-10.2); Carbon Dioxide 33 mmol/L (22-32); Chloride 100 mmol/L (98-107); Culture Indicated Urine Specimen Cultured; Estimated Glomerular Filt Rate > 60.0 mL/min (>60); Glucose 99 mg/dL (70-100); HEMOLYSIS < 15 (0-50); Potassium 3.4 mmol/L (3.4-5.1); Sodium 142 mmol/L (137-145); Squamous Epithelial Cell Urine 0-1 /HPF (0-5/HPF)
[2019-01-27 22:30] VITALS: BP 117/63; PULSE 85; RESP 14; O2SAT 99
[2019-01-27] MEDS: SODIUM CHLORIDE 0.9% 1,000 ML 1000 ML IV (22:46)
[2019-01-27] MEDS: ONDANSETRON 4 MG/2 ML INJ IV (22:47)
[2019-01-27] MEDS: LIDOCAINE 2% 5.1 ML in SODIUM CHLORIDE 0.9% 50 ML 330.6 ML IV (22:48)
[2019-01-27 23:00] VITALS: BP 116/68; PULSE 84; RESP 16; O2SAT 97
[2019-01-27] MEDS: HYDROMORPHONE 1 MG INJ 0.5 MG IV (23:34)
[2019-01-28] MEDS: OXYCODONE/APAP 5/325 PREPACK 1 BOTTLE MISC (00:53)
[2019-01-28 00:55] VITALS: BP 135/77; PULSE 80; RESP 18; O2SAT 99
== END 2019-01-28 00:55 | disposition home or self-care (01) ==
PROVIDERS: Emergency Provider Emergency Medicine
DX: R10.9 Unspecified abdominal pain (principal)
CPT/HCPCS: 36591; 76770; 80048; 81001; 85025; 87086; 96361; 96374; 96375; 99283; 99284; J1170; J2405

== ENCOUNTER 2019-02-28 18:39 | Emergency (ER) | payer OTHER, MEDICAID, SELFPAY ==
[2019-02-28 18:42] VITALS: BP 180/100; PULSE 115; RESP 18; TEMP 36.6; O2SAT 97
--- NOTE | 2019-02-28 19:22 | ED.FEMALEGU ---
HPI - Female Genitourinary General Chief complaint: Urogenital-Female Stated complaint: kidney is hurting Time Seen by Provider: 02/28/19 19:01 Source: patient Mode of arrival: ambulatory Limitations: no limitations History of Present Illness HPI Narrative: 53-year-old female smoker with history of recurrent kidney problems presents with bilateral kidney pain, dysuria, frequency, urgency subjective fever, chills and nausea for the past 2-3 days. She states her pain is better with rest and worsens with motion. She denies any bowel change. She denies any vaginal bleeding or discharge MD Complaint: dysuria and UTI Onset (ago): day(s) Female Urogenital Radiation: L Flank and R Flank Severity: moderate Quality: Aching Duration: constant Exacerbating factors: none Urinary symptoms: Dysuria, Flank Pain and Foul Smelling Urine Patient : No Related Data Home Medications Medication Instructions Recorded Confirmed gemfibrozil 600 mg PO BIDAC #0 04/09/11 02/28/19 loratadine [Claritin] 10 mg PO DAILY #0 04/09/11 02/28/19 citalopram 40 mg PO QDAY #0 02/09/12 02/28/19 acetaminophen 1,000 mg PO Q6H PRN 02/28/19 02/28/19 Previous Rx's Medication Instructions Recorded meclizine 25 mg PO BID-TID PRN #10 tab 11/22/18 hydroxyzine pamoate [Vistaril] 25 mg PO Q6-8H PRN #10 cap 12/09/18 cephalexin 500 mg PO QID 10 Days #40 cap 02/28/19 ondansetron 4 mg PO TID-QID PRN #10 tab 02/28/19 Allergies Allergy/AdvReac Type Severity Reaction Status Date / Time ibuprofen [IBUPROFEN] Allergy Intermediate Vomiting Verified 02/28/19 18:47 ketorolac [From Toradol] Allergy Intermediate Vomiting Verified 02/28/19 18:47 amoxicillin [AMOXICILLIN] Allergy Unknown Verified 02/28/19 18:47 aspirin [ASPIRIN] Allergy Unknown Verified 02/28/19 18:47 clavulanic acid Allergy Unknown Verified 02/28/19 18:47 [CLAVULANIC ACID] diphenhydramine Allergy Unknown Verified 02/28/19 18:47 [DIPHENHYDRAMINE] erythromycin base Allergy Unknown Verified 02/28/19 18:47 [From ERYTHROCIN] Sulfa (Sulfonamide Allergy Unknown Verified 02/28/19 18:47 Antibiotics) [SULFA (SULFONAMIDE ANTIBIOTICS)] tetracycline [TETRACYCLINE] Allergy Unknown Verified 02/28/19 18:47 hydrocodone [From Vicodin] Allergy Verified 02/28/19 18:47 levofloxacin [From Levaquin] Allergy Shakiness Verified 02/28/19 18:47 lidocaine AdvReac Intermediate Verified 02/28/19 18:47 Review of Systems Constitutional Reports chills, Reports fever(s), Denies lethargy and Denies weakness Eyes Denies change in vision, Denies eye discharge, Denies irritation and Denies loss of vision ENT Ears, Nose, Mouth, and Throat: Denies change in voice, Denies neck pain and Denies sore throat Cardiovascular Denies chest pain, Denies irregular heart rhythm, Denies lightheadedness, Denies palpitations, Denies dyspnea, Denies dyspnea on exertion and Denies orthopnea Respiratory Denies cough, Denies dyspnea, Denies dyspnea on exertion and Denies wheezing Gastrointestinal Gastrointestinal: Denies abdominal pain, Denies change in bowel habits, Denies diarrhea, Denies nausea and Denies vomiting Genitourinary Denies hematuria, Denies flank pain, Denies urinary incontinence and Denies urinary urgency Musculoskeletal Reports back pain and Denies neck pain Integumentary/Breasts Denies pruritus, Denies erythema, Denies rash and Denies wounds Neurologic Denies confusion, Denies loss of vision and Denies weakness Psychiatric Denies anxiety, Denies confusion, Denies depression, Denies homicidal ideation and Denies suicidal ideation Endocrine Denies palpitations Hematologic/Lymphatic Denies easy bruising Allergic/Immunologic Denies wheezing FOR[facility]LY [facility] Social History Smoking Status: Current every day smoker Exam Narrative Exam Narrative: GENERAL: 53-year-old female appears stated age, clearly uncomfortable walking slowly and massaging her back HEAD: Atraumatic. Normocephalic. No temporal or scalp tenderness. EYES: Pupils equal round and reactive. Extraocular motions intact. No scleral icterus. No injection or drainage. ENT: Nose without bleeding, purulent drainage or septal hematoma. Throat without erythema, tonsillar hypertrophy or exudate. Uvula midline. Airway patent. NECK: Trachea midline. No JVD or lymphadenopathy. Supple, nontender, no meningeal signs. CARDIOVASCULAR: Regular rate and rhythm without murmurs, gallops, or rubs. RESPIRATORY: Clear to auscultation. Breath sounds equal bilaterally. No wheezes, rales, or rhonchi. GASTROINTESTINAL: Abdomen soft, non-tender, nondistended. No hepato-splenomegaly, or palpable masses. No guarding. EXTREMITIES: No clubbing, cyanosis, or edema. No joint tenderness, effusion, or edema noted. BACK: Mild bilateral CVA tenderness NEURO: AOx3. SKIN: No rash or erythema. Initial Vital Signs Initial Vital Signs: Vital Signs Temperature 98 F 02/28/19 18:42 Pulse Rate 115 H 02/28/19 18:42 Respiratory Rate 18 02/28/19 18:42 Blood Pressure 180/100 H 02/28/19 18:42 Pulse Oximetry 97 02/28/19 18:42 Course Orders Ordered: Discontinued Medications Ceftriaxone Sodium/Dextrose (Rocephin) 1 gm in 50 mls @ 100 mls/hr IV NOW ONE Stop: 02/28/19 19:52 Last Infusion: 02/28/19 20:24 Dose: 100 mls/hr Admin: 02/28/19 19:40 Dose: 100 mls/hr Sodium Chloride (Normal Saline 0.9%) 1,000 mls @ 1,000 mls/hr IV BOLUS ONE Stop: 02/28/19 20:22 Last Infusion: 02/28/19 21:19 Dose: 1,000 mls/hr Admin: 02/28/19 19:40 Dose: 1,000 mls/hr Vital Signs - 8 hr 02/28/19 18:42 Temperature 98 F Pulse Rate 115 H Respiratory Rate 18 Blood Pressure 180/100 H Pulse Oximetry 97 MDM - Female Genitourinary Lab Data Result diagrams: 02/28/19 19:40 02/28/19 19:40 Lab Results 02/28/19 02/28/19 02/28/19 Range/Units 19:00 19:40 19:40 WBC 9.5 (4.5-11.0) X10^3/uL RBC 4.24 (4.0-5.2) X10^6/uL Hgb 12.4 (12.0-16.0) g/dL Hct 36.1 (36-46) % MCV 85.3 (80-100) fL MCH 29.3 (26-34) PG MCHC 34.4 (30-36) % RDW 12.6 (11.6-14.8) % Plt Count 236 (150-400) X10^3/uL Neut % (Auto) 67.8 (50-75) % Lymph % (Auto) 26.5 (25-40) % Butts % (Auto) 4.0 (3-14) % Eos % (Auto) 1.4 L (2-4) % Baso % (Auto) 0.3 (0-2) % Neut # (Auto) 6500 (9526-2259) /uL Lymph # (Auto) 2500 (7247-6490) /uL Butts # (Auto) 400 (0-900) /uL Eos # (Auto) 100 (0-450) /uL Baso # (Auto) 0 (0-100) /uL Sodium 144 (137-145) mmol/L Potassium 3.3 L (3.4-5.1) mmol/L Chloride 107 (98-107) mmol/L Carbon Dioxide 29 (22-32) mmol/L BUN 16 (7-17) mg/dL Creatinine 0.80 (0.52-1.04) mg/dL Estimated GFR > 60.0 (>60) mL/min BUN/Creatinine Ratio 20.0 (6-22) Glucose 86 (70-100) mg/dL Lactate (0.7-2.1) mmol/L Calcium 9.2 (8.4-10.2) mg/dL Total Bilirubin 0.3 (0.2-1.3) mg/dL AST 20 (14-36) IU/L ALT 19 (9-52) IU/L Alkaline Phosphatase 70 (38-126) U/L Total Protein 8.0 (6.3-8.2) g/dL Albumin 4.6 (3.5-5.0) g/dL Globulin 3.4 (1.7-4.1) g/dL Albumin/Globulin Ratio 1.4 (1.0-2.8) Urine RBC None seen (0-5/HPF) Urine WBC 10-30/hpf H (0-5/HPF) Ur Squamous Epith Cells 5-10 /hpf H (0-5/HPF) Urine Bacteria None seen (None) Ur Culture Indicated? Cult not indicated 02/28/19 Range/Units 19:40 WBC (4.5-11.0) X10^3/uL RBC (4.0-5.2) X10^6/uL Hgb (12.0-16.0) g/dL Hct (36-46) % MCV (80-100) fL MCH (26-34) PG MCHC (30-36) % RDW (11.6-14.8) % Plt Count (150-400) X10^3/uL Neut % (Auto) (50-75) % Lymph % (Auto) (25-40) % Butts % (Auto) (3-14) % Eos % (Auto) (2-4) % Baso % (Auto) (0-2) % Neut # (Auto) (6010-1194) /uL Lymph # (Auto) (7065-3808) /uL Butts # (Auto) (0-900) /uL Eos # (Auto) (0-450) /uL Baso # (Auto) (0-100) /uL Sodium (137-145) mmol/L Potassium (3.4-5.1) mmol/L Chloride (98-107) mmol/L Carbon Dioxide (22-32) mmol/L BUN (7-17) mg/dL Creatinine (0.52-1.04) mg/dL Estimated GFR (>60) mL/min BUN/Creatinine Ratio (6-22) Glucose (70-100) mg/dL Lactate 0.6 L (0.7-2.1) mmol/L Calcium (8.4-10.2) mg/dL Total Bilirubin (0.2-1.3) mg/dL AST (14-36) IU/L ALT (9-52) IU/L Alkaline Phosphatase (38-126) U/L Total Protein (6.3-8.2) g/dL Albumin (3.5-5.0) g/dL Globulin (1.7-4.1) g/dL Albumin/Globulin Ratio (1.0-2.8) Urine RBC (0-5/HPF) Urine WBC (0-5/HPF) Ur Squamous Epith Cells (0-5/HPF) Urine Bacteria (None) Ur Culture Indicated? Urine Dip Bedside Urine Glucose Negative Bedside Urine Bilirubin - Negative Bedside Urine Ketone - Negative Urine Specific [place] 1.020 Bedside Urine Occult Blood - Negative Bedside Urine pH 6.0 Bedside Urine Protein +/- 15 Bedside Urine Urobilinogen +/- 1mg Bedside Urine Nitrite - Negative Bedside Urine Leukocytes ++ 125 Esterase MDM Narrative Medical decision making narrative: 53-year-old female with frequent visits for urinary complaints including pyelonephritis and kidney stones presents with bilateral flank pain dysuria, frequency, urgency subjective fever and chills presents with urine consistent with UTI. She is not septic and demonstrates reassuring lab tests. She is administered IV fluids 1st round of antibiotics. Discharge Plan Departure Patient Disposition: Home Clinical Impression: Pyelonephritis Discharge Date/Time: 02/28/19 21:10 Interventions: ED Discharge Assessment Last Done: 02/28/19 21:10 Instructions: DI for Kidney Infection Activity Restrictions/Additional Instructions: *You have been diagnosed with [acute pyelonephritis] *What to do: *Take medications as directed *Follow up with your primary care provider in 2-3 days, call for an appointment. Let them know you were seen in the Emergency Department and that we ask that you be seen in follow up *Return to ER if you should have any new, worsening or concerning symptoms Prescriptions: New cephalexin 500 mg capsule 500 mg PO QID 10 Days Qty: 40 RF: 0 ondansetron 4 mg tablet,disintegrating 4 mg PO TID-QID PRN (Reason: nausea and vomiting) Qty: 10 RF: 0 No Action gemfibrozil 600 MG tablet 600 mg PO BIDAC Qty: 0 RF: 0 loratadine [Claritin] 10 MG tablet 10 mg PO DAILY Qty: 0 RF: 0 citalopram 20 MG tablet 40 mg PO QDAY Qty: 0 RF: 0 hydroxyzine pamoate [Vistaril] 25 mg capsule 25 mg PO Q6-8H PRN (Reason: itching) Qty: 10 RF: 0 meclizine 25 mg tablet 25 mg PO BID-TID PRN (Reason: motion sickness) Qty: 10 RF: 0 acetaminophen 500 mg Tablet 1,000 mg PO Q6H PRN (Reason: pain / fever) RF: 0
[2019-02-28] MEDS: SODIUM CHLORIDE 0.9% 1,000 ML 1000 ML IV (19:40)
[2019-02-28] MEDS: CEFTRIAXONE 1 GM/50 ML FROZ.PIGGY IV (19:40)
--- NOTE | 2019-02-28 19:55 | PC.NURSE ---
PT states right kidney flank pain x 3 days. Has known kidney stone on right side. Appt with nephrology on 03/15. Has been taking tylenol for pain w/o relief and is nauseated. [ End ]
[2019-02-28 20:01] LABS: Add Manual Diff / Slide Review NO; Basophils Absolute Auto 0 /uL (0-100); Basophils Percent Auto 0.3 % (0-2); Eosinophils Absolute Auto 100 /uL (0-450); Eosinophils Percent Auto 1.4 % (2-4); Hematocrit 36.1 % (36-46); Hemoglobin 12.4 g/dL (12.0-16.0); Lymphocytes Absolute Auto 2500 /uL (1100-4500); Lymphocytes Percent Auto 26.5 % (25-40); Mean Corpuscular HGB Conc 34.4 % (30-36); Mean Corpuscular Hemoglobin 29.3 PG (26-34); Mean Corpuscular Volume 85.3 fL (80-100); Monocytes Absolute Auto 400 /uL (0-900); Neutrophils Absolute Auto 6500 /uL (1500-7000); Neutrophils Percent Auto 67.8 % (50-75); Platelet Count 236 X10^3/uL (150-400); Red Blood Cell Count 4.24 X10^6/uL (4.0-5.2); Red Cell Distribution Width 12.6 % (11.6-14.8); White Blood Cell Count 9.5 X10^3/uL (4.5-11.0)
[2019-02-28 20:10] LABS: Bacteria Urine None Seen; RBC Urine None Seen (0-5/HPF)
[2019-02-28 20:12] LABS: Lactate (Lactic Acid) 0.6 mmol/L (0.7-2.1)
[2019-02-28 20:13] LABS: Alanine Aminotransferase 19 IU/L (9-52); Albumin 4.6 g/dL (3.5-5.0); Albumin Globulin Ratio 1.4 (1.0-2.8); Alkaline Phosphatase 70 U/L (38-126); Aspartate Aminotransferase 20 IU/L (14-36); Bilirubin Total 0.3 mg/dL (0.2-1.3); Blood Urea Nitrogen 16 mg/dL (7-17); Calcium 9.2 mg/dL (8.4-10.2); Carbon Dioxide 29 mmol/L (22-32); Chloride 107 mmol/L (98-107); Estimated Glomerular Filt Rate > 60.0 mL/min (>60); Globulin 3.4 g/dL (1.7-4.1); Glucose 86 mg/dL (70-100); HEMOLYSIS < 15 (0-50); Potassium 3.3 mmol/L (3.4-5.1); Sodium 144 mmol/L (137-145)
[2019-02-28 20:18] LABS: Squamous Epithelial Cell Urine 5-10 /HPF (0-5/HPF); WBC Urine 10-30/HPF (0-5/HPF)
[2019-02-28 20:19] LABS: Culture Indicated Urine Cult Not Indicated
[2019-02-28 20:29] VITALS: BP 113/68; PULSE 86; RESP 14; O2SAT 99
[2019-02-28 21:10] VITALS: BP 107/69; PULSE 79; RESP 16; O2SAT 100
== END 2019-02-28 21:10 | disposition home or self-care (01) ==
PROVIDERS: Emergency Provider Emergency Medicine
DX: N12 Tubulo-interstitial nephritis, not specified as acute or chronic (principal)
CPT/HCPCS: 36415; 36591; 80053; 81003; 81015; 83605; 85025; 87040; 96361; 96365; 99283; 99284

== ENCOUNTER 2019-08-23 23:08 | Emergency (ER) | payer OTHER, MEDICAID, SELFPAY ==
--- NOTE | 2019-08-23 23:14 | DI.RAD.S_ITS ---
PROCEDURE: XR CHEST 2V INDICATIONS: cough, wheeze, tightness TECHNIQUE: 2 views of the chest were acquired. COMPARISON: [facility], CR, XR CHEST 1 VIEW, 08/29/2018, 21:37. FINDINGS: Surgical changes and devices: None. Lungs and pleura: Patchy opacities noted in the right middle lobe concerning for pneumonia. No pleural effusions or pneumothorax. Mediastinum: Mediastinal contours are normal. Heart size is normal. Bones and chest wall: No suspicious bony abnormalities. Soft tissues appear unremarkable. IMPRESSION: Right upper lobe pneumonia. Dictated by: Allison Kelly MD, PhD on 08/24/2019 at 8:45 Approved by: Allisno Kelly MD, PhD on 08/24/2019 at 8:46
[2019-08-23 23:17] VITALS: BP 104/72; PULSE 110; RESP 21; TEMP 36.9; O2SAT 97; BMI 22.8
[2019-08-23] MEDS: ALBUTEROL HFA PREPACK 1 BOX MISC (23:26)
[2019-08-23 23:27] VITALS: O2SAT 98
[2019-08-23 23:57] LABS: Influenza A - CEPHEID Flu A NEGATIVE (NEGATIVE); Influenza B - CEPHEID Flu B NEGATIVE (NEGATIVE)
[2019-08-24 00:27] VITALS: BP 121/65; PULSE 93; RESP 20; O2SAT 97
--- NOTE | 2019-08-24 02:26 | ED.URI ---
HPI - URI/Sore Throat General Chief Complaint: Upper Respiratory Symptoms Stated Complaint: hard time breathing Time Seen by Provider: 08/23/19 23:10 Source: patient Mode of arrival: Family Vehicle Limitations: no limitations History of Present Illness HPI Narrative: 54-year-old female smoker with history of upper respiratory complications presents with a chief complaint of some runny nose, sneezing, wheezing and occasionally productive cough over the past few days. She denies any fever. She has had no nausea, vomiting or diarrhea. She denies chest pain is not dizzy nor weak or lightheaded. She has been using her inhaler more often but has no spacer. She denies exposure to obviously ill persons. MD Complaint: cough, rhinorrhea and nasal congestion Onset (ago): day(s) Duration: constant Severity: moderate Relieving factors: nothing Description of mucous: yellow Able to tolerate fluids by mouth: Yes Associated symptoms: chills, cough and shortness of breath Treatments prior to arrival: cold medicine Related Data Home Medications Medication Instructions Recorded Confirmed gemfibrozil 600 mg PO BIDAC #0 04/09/11 02/28/19 loratadine [Claritin] 10 mg PO DAILY #0 04/09/11 02/28/19 citalopram 40 mg PO QDAY #0 02/09/12 02/28/19 acetaminophen 1,000 mg PO Q6H PRN 02/28/19 02/28/19 Previous Rx's Medication Instructions Recorded meclizine 25 mg PO BID-TID PRN #10 tab 11/22/18 hydroxyzine pamoate [Vistaril] 25 mg PO Q6-8H PRN #10 cap 12/09/18 ondansetron 4 mg PO TID-QID PRN #10 tab 02/28/19 azithromycin See Rx Instructions .ROUTE 08/24/19 .COMPLEX #6 tab prednisone 20 mg PO DAILY #5 tab 08/24/19 Allergies Allergy/AdvReac Type Severity Reaction Status Date / Time ibuprofen [IBUPROFEN] Allergy Intermediate Vomiting Verified 02/28/19 18:47 ketorolac [From Toradol] Allergy Intermediate Vomiting Verified 02/28/19 18:47 amoxicillin [AMOXICILLIN] Allergy Unknown Verified 02/28/19 18:47 aspirin [ASPIRIN] Allergy Unknown Verified 02/28/19 18:47 clavulanic acid Allergy Unknown Verified 02/28/19 18:47 [CLAVULANIC ACID] diphenhydramine Allergy Unknown Verified 02/28/19 18:47 [DIPHENHYDRAMINE] erythromycin base Allergy Unknown Verified 02/28/19 18:47 [From ERYTHROCIN] Sulfa (Sulfonamide Allergy Unknown Verified 02/28/19 18:47 Antibiotics) [SULFA (SULFONAMIDE ANTIBIOTICS)] tetracycline [TETRACYCLINE] Allergy Unknown Verified 02/28/19 18:47 hydrocodone [From Vicodin] Allergy Verified 02/28/19 18:47 levofloxacin [From Levaquin] Allergy Shakiness Verified 02/28/19 18:47 lidocaine AdvReac Intermediate Verified 02/28/19 18:47 Review of Systems Constitutional Constitutional: Denies chills, Denies fatigue, Denies fever(s), Denies frequent falls, Denies lethargy and Denies weakness Eyes Eyes: Denies change in vision, Denies eye discharge, Denies irritation and Denies loss of vision ENT Ears, Nose, Mouth, and Throat: Denies change in voice, Denies dizziness, Denies neck pain, Reports post nasal drip, Reports sore throat and Denies throat swelling Cardiovascular Cardiovascular: Denies chest pain, Denies irregular heart rhythm, Denies lightheadedness, Denies palpitations, Denies dyspnea, Denies dyspnea on exertion and Denies orthopnea Respiratory Respiratory: Reports cough, Denies dyspnea, Denies dyspnea on exertion and Denies wheezing Gastrointestinal Gastrointestinal: Denies abdominal pain, Denies change in bowel habits, Denies diarrhea, Denies nausea and Denies vomiting Genitourinary Genitourinary: Denies hematuria, Denies flank pain, Denies urinary incontinence and Denies urinary urgency Musculoskeletal Musculoskeletal: Denies back pain, Denies muscle weakness, Denies neck pain, Denies numbness and Denies tingling Integumentary/Breasts Skin/Breast: Denies pruritus, Denies erythema, Denies rash and Denies wounds Neurologic Neurologic: Denies behavioral changes, Denies confusion, Denies dizziness, Denies frequent falls, Denies loss of vision, Denies numbness, Denies tingling and Denies weakness Psychiatric Psychiatric: Denies anxiety, Denies behavioral changes, Denies confusion, Denies depression, Denies homicidal ideation and Denies suicidal ideation Endocrine Endocrine: Denies fatigue, Denies flushing and Denies palpitations Hematologic/Lymphatic Hematologic/Lymphatic: Denies easy bruising Allergic/Immunologic Allergic/Immunologic: Denies urticaria, Denies throat swelling and Denies wheezing Patient History Medical History Gastroesophageal reflux disease (Acute) Hypothyroid (Acute) Kidney stones (Acute) Social History Smoking Status: Current every day smoker Smoking Status: Current every day smoker alcohol intake frequency: 0-2 drinks per day Substance Use Type: marijuana Exam Narrative Exam Narrative: GENERAL: [54] year old patient appears stated age. Well appearing, mild distress, speaking clearly without signs of obvious significant respiratory distress HEAD: Atraumatic. Normocephalic. EYES: Pupils equal round and reactive. Extraocular motions intact. No scleral icterus. No injection or drainage. ENT: Nose without bleeding, purulent drainage. Throat without erythema, tonsillar hypertrophy or exudate. Airway patent. NECK: Trachea midline. Non tender CARDIOVASCULAR: Regular rate and rhythm without murmurs, gallops, or rubs. RESPIRATORY: Prolonged expiratory phase with minimal expiratory wheeze at and the respiratory cycle GASTROINTESTINAL: Abdomen soft, non-tender, nondistended. EXTREMITIES: No edema or joint tenderness. BACK: Nontender without deformity or crepitance. No flank tenderness. NEURO: AOx3. SKIN: No rash or erythema of visible areas Initial Vital Signs Initial Vital Signs: Vital Signs Temperature 98.4 F 08/23/19 23:17 Pulse Rate 110 H 08/23/19 23:17 Respiratory Rate 21 08/23/19 23:17 Blood Pressure 104/72 08/23/19 23:17 Pulse Oximetry 97 08/23/19 23:17 Course Orders Ordered: ED Orders 08/23/19 23:14 XR chest 2V Stat 08/23/19 23:23 Influenza A & B (PCR) Stat Discontinued Medications Albuterol (Ventolin Hfa Prepack) 1 box MISC SEEINSTR ONE Stop: 08/23/19 23:26 Last Admin: 08/23/19 23:26 Dose: 1 box Documented by: MATHIEU Vital Signs Vital signs: Vital Signs - 8 hr 08/23/19 23:17 08/23/19 23:27 08/24/19 00:27 Temperature 98.4 F Pulse Rate 110 H 93 H Respiratory Rate 21 20 Blood Pressure 104/72 121/65 Pulse Oximetry 97 98 97 MDM - URI/Sore Throat Lab Data Labs: Lab Results 08/23/19 Range/Units 23:23 Influenza A (RT-PCR) Flu a negative (NEGATIVE) Influenza B (RT-PCR) Flu b negative (NEGATIVE) Point of Care Testing Rapid Strep A Negative Imaging Data Chest x-ray: My Impression: No acute process MDM Narrative Medical decision making narrative: Patient not septic or in obvious respiratory distress. She does well after the evaluation treatment by respiratory therapy. Chest x-ray shows no obvious significant pneumonia. Given her history as a smoker, productive cough and subjective fever patient likely has an atypical pneumonia and will benefit from use of antibiotics. Patient given return precautions and has had her questions answered to her apparent satisfaction Discharge Plan Departure Patient Disposition: Home Clinical Impression: Atypical pneumonia, Acute exacerbation of chronic obstructive pulmonary disease Discharge Date/Time: 08/24/19 00:26 Instructions: DI for Chronic Obstructive Pulmonary Disease, DI for Atypical Pneumonia Activity Restrictions/Additional Instructions: *You have been diagnosed with [atypical pneumonia with exacerbation of COPD] *What to do: *Take medications as directed *Follow up with your primary care provider in 2-3 days, call for an appointment. Let them know you were seen in the Emergency Department and that we ask that you be seen in follow up *Return to ER if you should have any new, worsening or concerning symptoms Prescriptions: New prednisone 20 mg tablet 20 mg PO DAILY Qty: 5 RF: 0 azithromycin 250 mg tablet See Rx Instructions .ROUTE .COMPLEX Qty: 6 RF: 0 No Action gemfibrozil 600 MG tablet 600 mg PO BIDAC Qty: 0 RF: 0 loratadine [Claritin] 10 MG tablet 10 mg PO DAILY Qty: 0 RF: 0 citalopram 20 MG tablet 40 mg PO QDAY Qty: 0 RF: 0 hydroxyzine pamoate [Vistaril] 25 mg capsule 25 mg PO Q6-8H PRN (Reason: itching) Qty: 10 RF: 0 meclizine 25 mg tablet 25 mg PO BID-TID PRN (Reason: motion sickness) Qty: 10 RF: 0 acetaminophen 500 mg Tablet 1,000 mg PO Q6H PRN (Reason: pain / fever) RF: 0 ondansetron 4 mg tablet,disintegrating 4 mg PO TID-QID PRN (Reason: nausea and vomiting) Qty: 10 RF: 0 Referrals: [facility] [Outside]
== END 2019-08-24 00:26 | disposition home or self-care (01) ==
PROVIDERS: Emergency Provider Emergency Medicine
DX: J18.9 Pneumonia, unspecified organism (principal); J44.1 Chronic obstructive pulmonary disease with (acute) exacerbation; F17.200 Nicotine dependence, unspecified, uncomplicated
CPT/HCPCS: 71046; 87502; 87880; 93005; 99283

== ENCOUNTER 2019-10-08 21:05 | Emergency (ER) | payer OTHER, MEDICAID, SELFPAY ==
[2019-10-08 21:18] VITALS: BP 118/83; PULSE 104; RESP 16; TEMP 36.3; O2SAT 100; BMI 24.4
--- NOTE | 2019-10-08 23:56 | ED_ITS ---
HPI - Nausea/Vomiting/Diarrhea General Chief complaint: Nausea/Vomiting/Diarrhea Stated complaint: sick, vomiting x1 wk Time Seen by Provider: 10/08/19 23:42 Source: patient Mode of arrival: Ambulatory History of Present Illness HPI Narrative: Chief complaint: Vomiting for 1 week History of present illness: The patient is a 54-year-old female who presents to the emergency department with a complaint of persistent recurring vomiting for the last week prior to admission. She states that she has been unable to keep anything down. This has been associated with diffuse abdominal cramps and pain primarily located in the right lower quadrant. Her pain and discomfort is 8/10 in nature. It is a dull achy crampy discomfort. Her emesis consists of the food that she has eaten and phlegm without any blood. Periodically there has been some bile. She denies any coffee-ground emesis. She complains that the pain is in the right lower quadrant. She states that she has had kidney surgery in February at which time she had a lithotripsy for kidney stone. She has had a hysterectomy at the age of 29 and had her gallbladder removed. The pain is 8/10 in intensity. She complains that she has had intermittent fever chills and sweats associated with a cough dry and nonproductive with shortness of breath. She has had normal bowel movements without melena or hematochezia. She complains of increased urinary frequency and urgency. She has not had a headache fall or injury. Related Data Home Medications Medication Instructions Recorded Confirmed gemfibrozil 600 mg PO BIDAC #0 04/09/11 02/28/19 loratadine [Claritin] 10 mg PO DAILY #0 04/09/11 02/28/19 citalopram 40 mg PO QDAY #0 02/09/12 02/28/19 acetaminophen 1,000 mg PO Q6H PRN 02/28/19 02/28/19 Previous Rx's Medication Instructions Recorded meclizine 25 mg PO BID-TID PRN #10 tab 11/22/18 hydroxyzine pamoate [Vistaril] 25 mg PO Q6-8H PRN #10 cap 12/09/18 ondansetron 4 mg PO TID-QID PRN #10 tab 02/28/19 azithromycin See Rx Instructions .ROUTE 08/24/19 .COMPLEX #6 tab prednisone 20 mg PO DAILY #5 tab 12/27/19 dicyclomine 20 mg PO QID PRN #20 tab 10/09/19 ondansetron 4 mg PO Q6H PRN #15 tab 10/09/19 Allergies Allergy/AdvReac Type Severity Reaction Status Date / Time ibuprofen [IBUPROFEN] Allergy Intermediate Vomiting Verified 10/08/19 21:18 ketorolac [From Toradol] Allergy Intermediate Vomiting Verified 10/08/19 21:18 amoxicillin [AMOXICILLIN] Allergy Unknown Verified 10/08/19 21:18 aspirin [ASPIRIN] Allergy Unknown Verified 10/08/19 21:18 clavulanic acid Allergy Unknown Verified 10/08/19 21:18 [CLAVULANIC ACID] diphenhydramine Allergy Unknown Verified 10/08/19 21:18 [DIPHENHYDRAMINE] erythromycin base Allergy Unknown Verified 10/08/19 21:18 [From ERYTHROCIN] Sulfa (Sulfonamide Allergy Unknown Verified 10/08/19 21:18 Antibiotics) [SULFA (SULFONAMIDE ANTIBIOTICS)] tetracycline [TETRACYCLINE] Allergy Unknown Verified 10/08/19 21:18 hydrocodone [From Vicodin] Allergy Verified 10/08/19 21:18 levofloxacin [From Levaquin] Allergy Shakiness Verified 10/08/19 21:18 lidocaine AdvReac Intermediate Verified 10/08/19 21:18 Review of Systems Review of Systems ROS Unobtainable: All systems reviewed & are unremarkable except as noted in HPI and below Patient History Medical History Gastroesophageal reflux disease (Acute) Hypothyroid (Acute) Kidney stones (Acute) Social History Smoking Status: Current every day smoker Smoking Status: Current every day smoker alcohol intake frequency: 0-2 drinks per day Substance Use Type: marijuana Exam Narrative Exam Narrative: PHYSICAL EXAM: CONSTITUTIONAL: Awake, Alert, Oriented, Coherent, Cooperative in NAD. Does not appear toxic or ill. HEAD: AT/NC EENT: PERRL, FROM of eyes, no discharge, Oral mucosa is moist and pink, posterior pharynx is without erythema or exudate. NECK: Supple, no obvious JVD, Trachea is midline without stridor, no palpable LN or masses. SPINE: No gross deformity, no palpable tenderness of the cervical, thoracic, lumbar or sacral spine. There is mild right costovertebral angle tenderness. THORAX: No deformity, retractions, chest wall tenderness. LUNGS: Clear with symmetrical breath sounds without respiratory distress HEART: Normal heart tones, regular rhythm and rate without murmur. ABDOMEN: The abdomen is soft and tender in the right lower quadrant with minimal mild guarding no rebound no rigidity. There was no palpable organomegaly EXTREMITIES: No edema, cyanosis, deformity or tenderness. SKIN: No rash, bruising, petechiae or purpura. NEURO: Awake, alert, oriented, conversive, cranial nerves II-XII are symmetrical and normal, moves all 4 extremities and is ambulatory Initial Vital Signs Initial Vital Signs: Vital Signs Temperature 97.3 F L 10/08/19:18 Pulse Rate 104 H 10/08/19:18 Respiratory Rate 16 10/08/19 21:18 Blood Pressure 118/83 10/08/19:18 Pulse Oximetry 100 10/08/19:18 Course Course Course Narrative: 2356; the patient has had persistent nausea and vomiting for a week prior to admission with right lower quadrant and back pain. She has had a hysterectomy before and her gallbladder removed. A CT scan will be obtained of the abdomen. [address] scan of the abdomen revealed that she has had a cholecystectomy spleen is in normal size and the pancreatic duct in the head measures 3.5 mm in diameter. There is no pancreatic mass identified. The pancreatic duct gradually tapers into the tail of the pancreas. The impression was that the patient had mild hepatomegaly mild dilation of the pancreatic duct consider biochemical testing for a pancreatitis per the radiologist. The patient's lipase is within normal limits. WBC is 8.3 hemoglobin is 13.5 hematocrit of 39.4. Her urinalysis he is not a clean catch urine with numerous epithelial cells. Culture and sensitivity was not indicated. Her bilirubin, AST, and ALT, and alkaline phosphatase were all within normal limits. The patient will be hydrated with 2 L of fluid persistent but admitting administered Zofran and discharge on bentyl to be re-evaluated by her primary care physician in 2-3 days 0329 the patient's chest x-ray does not show any gross pneumonia or infiltrate. There are diffuse interstitial markings throughout both lung hauser which appear to maybe represent questionable pulmonary fibrosis. There is no gross infiltrate or pneumonia. The patient will be discharged home and needs to be rechecked in 24-72 hours by her primary care physician. Orders Ordered: Discontinued Medications Dicyclomine HCl (Bentyl) 20 mg PO NOW ONE Stop: 10/09/19 02:03 Last Admin: 10/09/19 03:48 Dose: 20 mg Documented by: RADHA Sodium Chloride (Normal Saline 0.9%) 1,000 mls @ 1,000 mls/hr IV BOLUS ONE Stop: 10/09/19 00:32 Last Admin: 10/09/19 00:34 Dose: 1,000 mls/hr Documented by: RADHA Sodium Chloride (Normal Saline 0.9%) 1,000 mls @ 1,000 mls/hr IV BOLUS ONE Stop: 10/09/19 03:01 Morphine Sulfate (Morphine Sulfate) 4 mg IV NOW ONE Stop: 10/09/19 00:27 Ondansetron HCl (Zofran) 4 mg IV NOW ONE Stop: 10/09/19 00:28 Last Admin: 10/09/19 00:34 Dose: 4 mg Documented by: RADHA Vital Signs Vital signs: Vital Signs - 8 hr 10/08/19 21:18 Temperature 97.3 F L Pulse Rate 104 H Respiratory Rate 16 Blood Pressure 118/83 Pulse Oximetry 100 MDM - Nausea/Vomiting/Diarrhea Medical Records Attestation: I reviewed the patient's medical records. Lab Data Attestation: I reviewed the patient's lab results. Result diagrams: 10/09/19 00:05 10/09/19 00:05 Labs: Lab Results 10/09/19 10/09/19 10/09/19 Range/Units 00:05 00:05 00:05 WBC 8.3 (4.5-11.0) X10^3/uL RBC 4.62 (4.0-5.2) X10^6/uL Hgb 13.5 (12.0-16.0) g/dL Hct 39.4 (36-46) % MCV 85.4 (80-100) fL MCH 29.3 (26-34) PG MCHC 34.3 (30-36) % RDW 12.9 (11.6-14.8) % Plt Count 240 (150-400) X10^3/uL Neut % (Auto) 58.1 (50-75) % Lymph % (Auto) 35.3 (25-40) % [place] % (Auto) 5.2 (3-14) % Eos % (Auto) 1.0 L (2-4) % Baso % (Auto) 0.4 (0-2) % Neut # (Auto) 4800 (1986-3505) /uL Lymph # (Auto) 2900 (8478-0434) /uL [place] # (Auto) 400 (0-900) /uL Eos # (Auto) 100 (0-450) /uL Baso # (Auto) 0 (0-100) /uL Sodium 143 (137-145) mmol/L Potassium 3.5 (3.4-5.1) mmol/L Chloride 106 (98-107) mmol/L Carbon Dioxide 29 (22-32) mmol/L BUN 18 H (7-17) mg/dL Creatinine 0.80 (0.52-1.04) mg/dL Estimated GFR > 60.0 (>60) mL/min BUN/Creatinine Ratio 22.5 H (6-22) Glucose 132 H (70-100) mg/dL Lactate (0.7-2.1) mmol/L Calcium 9.9 (8.4-10.2) mg/dL Total Bilirubin 0.4 (0.2-1.3) mg/dL AST 20 (14-36) IU/L ALT 13 (<35) IU/L Alkaline Phosphatase 74 (38-126) U/L Total Protein 8.4 H (6.3-8.2) g/dL Albumin 4.7 (3.5-5.0) g/dL Globulin 3.7 (1.7-4.1) g/dL Albumin/Globulin Ratio 1.3 (1.0-2.8) Lipase 221 (23-300) U/L Urine RBC (0-5/HPF) Urine WBC (0-5/HPF) Ur Squamous Epith Cells (0-5/HPF) Urine Bacteria (None) Urine Mucus (Negative) Ur Culture Indicated? 10/09/19 10/09/19 Range/Units 00:20 00:20 WBC (4.5-11.0) X10^3/uL RBC (4.0-5.2) X10^6/uL Hgb (12.0-16.0) g/dL Hct (36-46) % MCV (80-100) fL MCH (26-34) PG MCHC (30-36) % RDW (11.6-14.8) % Plt Count (150-400) X10^3/uL Neut % (Auto) (50-75) % Lymph % (Auto) (25-40) % [place] % (Auto) (3-14) % Eos % (Auto) (2-4) % Baso % (Auto) (0-2) % Neut # (Auto) (8319-9345) /uL Lymph # (Auto) (5760-7189) /uL [place] # (Auto) (0-900) /uL Eos # (Auto) (0-450) /uL Baso # (Auto) (0-100) /uL Sodium (137-145) mmol/L Potassium (3.4-5.1) mmol/L Chloride (98-107) mmol/L Carbon Dioxide (22-32) mmol/L BUN (7-17) mg/dL Creatinine (0.52-1.04) mg/dL Estimated GFR (>60) mL/min BUN/Creatinine Ratio (6-22) Glucose (70-100) mg/dL Lactate 0.9 (0.7-2.1) mmol/L Calcium (8.4-10.2) mg/dL Total Bilirubin (0.2-1.3) mg/dL AST (14-36) IU/L ALT (<35) IU/L Alkaline Phosphatase (38-126) U/L Total Protein (6.3-8.2) g/dL Albumin (3.5-5.0) g/dL Globulin (1.7-4.1) g/dL Albumin/Globulin Ratio (1.0-2.8) Lipase (23-300) U/L Urine RBC 0-1/hpf (0-5/HPF) Urine WBC 1-5/hpf (0-5/HPF) Ur Squamous Epith Cells 5-10 /hpf H (0-5/HPF) Urine Bacteria Moderate (10-30) H (None) Urine Mucus 1+ H (Negative) Ur Culture Indicated? Cult not indicated Discharge Plan Departure Patient Disposition: Home Clinical Impression: Abdominal bloating with cramps Abdominal pain Qualifiers: Abdominal location: right lower quadrant Qualified Code(s): R10.31 - Right lower quadrant pain Nausea and vomiting Qualifiers: Vomiting type: unspecified Vomiting Intractability: non-intractable Qualified Code(s): R11.2 - Nausea with vomiting, unspecified Discharge Date/Time: 10/09/19 04:21 Instructions: DI for Dehydration -- Adult, DI for Nausea -- Adult, DI for Vomiting -- Adult, Nausea and Vomiting-Adult Activity Restrictions/Additional Instructions: You need to follow-up with your primary care physician to be rechecked in 48-72 hours. If he develops worsening pain fever passing-out you need to return to the emergency department otherwise you need to follow-up with your primary care physician. For the abdominal pain and cramps use Bentyl 20 mg 4 times a day. For nausea and vomiting use Zofran 4 mg every 6 hours. If he started vomiting blood or coffee-ground material or having black tarry stools or blood in your stools you need to return to the emergency department to be evaluated. Prescriptions: New dicyclomine 20 mg tablet 20 mg PO QID PRN (Reason: pain, mild) Qty: 20 RF: 0 ondansetron 4 mg tablet,disintegrating 4 mg PO Q6H PRN (Reason: nausea and vomiting) Qty: 15 RF: 0 No Action gemfibrozil 600 MG tablet 600 mg PO BIDAC Qty: 0 RF: 0 loratadine [Claritin] 10 MG tablet 10 mg PO DAILY Qty: 0 RF: 0 citalopram 20 MG tablet 40 mg PO QDAY Qty: 0 RF: 0 hydroxyzine pamoate [Vistaril] 25 mg capsule 25 mg PO Q6-8H PRN (Reason: itching) Qty: 10 RF: 0 meclizine 25 mg tablet 25 mg PO BID-TID PRN (Reason: motion sickness) Qty: 10 RF: 0 acetaminophen 500 mg Tablet 1,000 mg PO Q6H PRN (Reason: pain / fever) RF: 0 ondansetron 4 mg tablet,disintegrating 4 mg PO TID-QID PRN (Reason: nausea and vomiting) Qty: 10 RF: 0 prednisone 20 mg tablet 20 mg PO DAILY Qty: 5 RF: 0 azithromycin 250 mg tablet See Rx Instructions .ROUTE .COMPLEX Qty: 6 RF: 0
--- NOTE | 2019-10-08 23:57 | DI.CT.S_ITS ---
PROCEDURE: CT ABDOMEN PELVIS W CON INDICATIONS: right lower and back pain with persistent vomiting TECHNIQUE: After the administration of intravenous contrast, 5 mm thick sections acquired from the diaphragm to the symphysis. 5 mm coronal and sagittal reformats were acquired. For radiation dose reduction, the following was used: automated exposure control, adjustment of mA and/or kV according to patient size. COMPARISON: [facility], CT, CT ABDOMEN PELVIS WITH CONTRAST, 08/29/2018, 22:09. FINDINGS: Image quality: Excellent. ABDOMEN: Lung bases: Mild bibasilar atelectasis. Heart size is normal. Solid organs: Liver is homogeneous in enhancement with mild hepatomegaly. Gallbladder is surgically absent with stable prominence of the common bile duct likely related to post cholecystectomy physiologic dilatation. No intrahepatic biliary ductal dilatation. Pancreatic duct is normal in appearance. The Pancreas enhances normally. Spleen is normal in size and enhancement. No adrenal nodules. Kidneys demonstrate normal size and enhancement, without hydronephrosis. Previously noted right renal calculus is no longer visualized and presumably passed. No periureteral or perinephric stranding. Several punctate phleboliths are again visualized adjacent to the course of the right ureter. Peritoneum and bowel: Minimal circumferential bowel wall thickening of the descending colon and sigmoid colon likely related to incomplete distention. No pericolonic inflammatory changes. No abnormal or asymmetric bowel wall thickening. No evidence for bowel obstruction. The appendix is not definitively visualized. However, no secondary findings of acute inflammation are noted in the right lower quadrant. No free fluid or air. Nodes and vessels: No retroperitoneal or mesenteric adenopathy by size criteria. Aorta and inferior vena cava are normal in size. Scattered atherosclerotic calcifications of the abdominal aorta and iliac vessels without aneurysmal dilatation. Miscellaneous: No ventral hernias. There is a fat containing umbilical hernia without acute inflammation. PELVIS: Genitourinary: Bladder wall thickness is normal. Status post hysterectomy. Miscellaneous: No inguinal hernias or adenopathy. Bones: No suspicious bony lesions. No acute vertebral body compression fractures. Multilevel spondylitic changes throughout the imaged spine. Findings are most pronounced at L5-S1. IMPRESSION: 1. Mild hepatomegaly. 2. Status post cholecystectomy with stable prominence of the common bile duct which is likely related to post cholecystectomy physiologic dilatation. 3. Previously noted 5 mm right nephrolith is not visualized and presumably passed. 4. Minimal circumferential bowel wall thickening of the descending colon and sigmoid colon likely related to incomplete distention. No secondary findings for acute inflammation. No bowel obstruction. No significant discrepancy with the accounting clerk radiology preliminary report. Dictated by: Diego Kilgore M.D. on 10/09/2019 at 8:53 Approved by: Diego Kilgore M.D. on 10/09/2019 at 9:14
[2019-10-09 00:17] LABS: Add Manual Diff / Slide Review NO; Basophils Absolute Auto 0 /uL (0-100); Basophils Percent Auto 0.4 % (0-2); Eosinophils Absolute Auto 100 /uL (0-450); Hematocrit 39.4 % (36-46); Hemoglobin 13.5 g/dL (12.0-16.0); Lymphocytes Absolute Auto 2900 /uL (1100-4500); Lymphocytes Percent Auto 35.3 % (25-40); Mean Corpuscular HGB Conc 34.3 % (30-36); Mean Corpuscular Hemoglobin 29.3 PG (26-34); Mean Corpuscular Volume 85.4 fL (80-100); Monocytes Absolute Auto 400 /uL (0-900); Monocytes Percent Auto 5.2 % (3-14); Neutrophils Absolute Auto 4800 /uL (1500-7000); Neutrophils Percent Auto 58.1 % (50-75); Platelet Count 240 X10^3/uL (150-400); Red Blood Cell Count 4.62 X10^6/uL (4.0-5.2); Red Cell Distribution Width 12.9 % (11.6-14.8); White Blood Cell Count 8.3 X10^3/uL (4.5-11.0)
[2019-10-09 00:27] LABS: Alanine Aminotransferase 13 IU/L (<35); Albumin 4.7 g/dL (3.5-5.0); Albumin Globulin Ratio 1.3 (1.0-2.8); Alkaline Phosphatase 74 U/L (38-126); Aspartate Aminotransferase 20 IU/L (14-36); BUN Creatinine Ratio 22.5 (6-22); Bilirubin Total 0.4 mg/dL (0.2-1.3); Blood Urea Nitrogen 18 mg/dL (7-17); Calcium 9.9 mg/dL (8.4-10.2); Carbon Dioxide 29 mmol/L (22-32); Chloride 106 mmol/L (98-107); Estimated Glomerular Filt Rate > 60.0 mL/min (>60); Globulin 3.7 g/dL (1.7-4.1); Glucose 132 mg/dL (70-100); HEMOLYSIS 20 (0-50); Lipase 221 U/L (23-300); Potassium 3.5 mmol/L (3.4-5.1); Sodium 143 mmol/L (137-145); Total Protein 8.4 g/dL (6.3-8.2)
[2019-10-09] MEDS: ONDANSETRON 4 MG/2 ML INJ IV (00:34)
[2019-10-09] MEDS: SODIUM CHLORIDE 0.9% 1,000 ML 1000 ML IV (00:34)
--- NOTE | 2019-10-09 00:38 | PC.NURSE ---
patient stated she can not take morphine. She states she can only have dilaudid. Provider notified and aware.
[2019-10-09 00:40] LABS: Bacteria Urine Moderate (10-30); Culture Indicated Urine Cult Not Indicated; Mucus Urine 1+ (Negative); RBC Urine 0-1/HPF (0-5/HPF); Squamous Epithelial Cell Urine 5-10 /HPF (0-5/HPF); WBC Urine 1-5/HPF (0-5/HPF)
[2019-10-09 00:41] LABS: Lactate (Lactic Acid) 0.9 mmol/L (0.7-2.1)
--- NOTE | 2019-10-09 02:51 | DI.RAD.S_ITS ---
PROCEDURE: XR CHEST 1V INDICATIONS: cough, shortness of breath, abdominal Pain, Nausea and vomiting. TECHNIQUE: One view of the chest was acquired. COMPARISON: [facility], CR, XR CHEST 2V, 08/23/2019, 23:12. FINDINGS: Surgical changes and devices: None. Lungs and pleura: Previously seen patchy right middle lung zone opacities have resolved. Lungs are otherwise clear. No pleural effusions or pneumothorax. Mediastinum: Mediastinal contours appear normal. Heart size is normal. Bones and chest wall: No suspicious bony lesions. Overlying soft tissues appear unremarkable. IMPRESSION: Chest without acute cardiopulmonary abnormalities or focal airspace disease. Previously seen patchy right middle lung zone opacities have resolved. Dictated by: Diego Kilgore M.D. on 10/09/2019 at 7:46 Approved by: Diego Kilgore M.D. on 10/09/2019 at 7:48
[2019-10-09] MEDS: DICYCLOMINE 10 MG CAPSULE 20 MG PO (03:48)
[2019-10-09 04:16] VITALS: BP 121/84; PULSE 71; RESP 14; O2SAT 98
--- NOTE | 2019-10-19 20:38 | PC.NURSE ---
Normal Saline stopped at 0140, 1000mls infused.
== END 2019-10-09 04:21 | disposition home or self-care (01) ==
PROVIDERS: Emergency Provider Emergency Medicine
DX: R14.0 Abdominal distension (gaseous) (principal); R10.31 Right lower quadrant pain; R11.2 Nausea with vomiting, unspecified
CPT/HCPCS: 36415; 71045; 74177; 80053; 81015; 83605; 83690; 85025; 96361; 96374; 99284; J2405; Q9967

== ENCOUNTER 2020-04-18 20:35 | Emergency (ER) | payer OTHER, MEDICAID, SELFPAY ==
[2020-04-18 20:38] VITALS: BP 143/85; PULSE 96; RESP 18; TEMP 36.8; O2SAT 97; BMI 23.3
--- NOTE | 2020-04-18 20:46 | DI.RAD.S_ITS ---
PROCEDURE: XR ANKLE RT MIN 3V INDICATIONS: heel pain TECHNIQUE: 3 views of the ankle were acquired. COMPARISON: None. FINDINGS: Bones: No fractures or dislocations. Ankle mortise is normally aligned. No suspicious bony lesions. Soft tissues: No tibiotalar joint effusion. Achilles tendon appears normal. IMPRESSION: No acute fracture. No osseous lesion. If symptoms and/or clinical suspicion for pathology persist, further assessment with repeat, or advanced imaging (e.g., CT, MRI, or bone scan) may be helpful for further assessment. Dictated by: Santiago De León M.D. on 04/18/2020 at 21:04 Approved by: Santiago De León M.D. on 04/18/2020 at 21:04
--- NOTE | 2020-04-18 21:43 | PC.NURSE ---
reports back of right heel has been painful to the touch for a while, uncertain of the date it started. Patient reports her grandaughter who is a toddler that uses a walker has been repeatedly running into the sore spot on the back of her right heel and now there is a visible swollen area. No redness noted. Swollen area is 3cm and is raised 5mm.
--- NOTE | 2020-04-18 21:52 | ED_ITS ---
HPI - Extremity Injury (Lower) General Chief Complaint: Extremity Injury, Lower Stated Complaint: Right Heel Pain Time Seen by Provider: 04/18/20 20:45 Source: patient Mode of arrival: Wheelchair Limitations: no limitations History of Present Illness HPI Narrative: 55-year-old female daily smoker with history of chronic pain issues presents with a chief complaint of pain on her right heel where she has a known heel spur. She states that a family member had run into with a walker a few times and caused her increasing pain over the past few weeks. She wears flat shoes with tight heel band overlying the region of her pain. She denies any specific or traumatic injury. Related Data Home Medications Medication Instructions Recorded Confirmed gemfibrozil 600 mg PO BIDAC #0 04/09/11 02/28/19 loratadine [Claritin] 10 mg PO DAILY #0 04/09/11 02/28/19 citalopram 40 mg PO QDAY #0 02/09/12 02/28/19 acetaminophen 1,000 mg PO Q6H PRN 02/28/19 02/28/19 Previous Rx's Medication Instructions Recorded meclizine 25 mg PO BID-TID PRN #10 tab 11/22/18 hydroxyzine pamoate [Vistaril] 25 mg PO Q6-8H PRN #10 cap 12/09/18 ondansetron 4 mg PO TID-QID PRN #10 tab 02/28/19 azithromycin See Rx Instructions .ROUTE 08/24/19 .COMPLEX #6 tab prednisone 20 mg PO DAILY #5 tab 08/24/19 dicyclomine 20 mg PO QID PRN #20 tab 10/09/19 ondansetron 4 mg PO Q6H PRN #15 tab 10/09/19 Allergies Allergy/AdvReac Type Severity Reaction Status Date / Time ibuprofen [IBUPROFEN] Allergy Intermediate Vomiting Verified 04/18/20 20:45 ketorolac [From Toradol] Allergy Intermediate Vomiting Verified 04/18/20 20:45 amoxicillin [AMOXICILLIN] Allergy Unknown Verified 04/18/20 20:45 aspirin [ASPIRIN] Allergy Unknown Verified 04/18/20 20:45 clavulanic acid Allergy Unknown Verified 04/18/20 20:45 [CLAVULANIC ACID] diphenhydramine Allergy Unknown Verified 04/18/20 20:45 [DIPHENHYDRAMINE] erythromycin base Allergy Unknown Verified 04/18/20 20:45 [From ERYTHROCIN] Sulfa (Sulfonamide Allergy Unknown Verified 04/18/20 20:45 Antibiotics) [SULFA (SULFONAMIDE ANTIBIOTICS)] tetracycline [TETRACYCLINE] Allergy Unknown Verified 04/18/20 20:45 hydrocodone [From Vicodin] Allergy Verified 04/18/20 20:45 levofloxacin [From Levaquin] Allergy Shakiness Verified 04/18/20 20:45 lidocaine AdvReac Intermediate Verified 04/18/20 20:45 Review of Systems Constitutional Constitutional: Denies chills, Denies fatigue, Denies fever(s), Denies frequent falls, Denies lethargy and Denies weakness Eyes Eyes: Denies change in vision, Denies eye discharge, Denies irritation and Denies loss of vision ENT Ears, Nose, Mouth, and Throat: Denies change in voice, Denies dizziness, Denies neck pain, Denies sore throat and Denies throat swelling Cardiovascular Cardiovascular: Denies chest pain, Denies irregular heart rhythm, Denies lightheadedness, Denies palpitations, Denies dyspnea, Denies dyspnea on exertion and Denies orthopnea Respiratory Respiratory: Denies cough, Denies dyspnea, Denies dyspnea on exertion and Denies wheezing Gastrointestinal Gastrointestinal: Denies abdominal pain, Denies change in bowel habits, Denies diarrhea, Denies nausea and Denies vomiting Musculoskeletal Musculoskeletal: Reports abnormal gait, Denies neck pain and Denies numbness Comments: foot pain Integumentary/Breasts Skin/Breast: Denies pruritus, Denies erythema, Denies rash and Denies wounds Neurologic Neurologic: Reports abnormal gait, Denies behavioral changes, Denies confusion, Denies dizziness, Denies frequent falls, Denies loss of vision, Denies numbness and Denies weakness Psychiatric Psychiatric: Denies anxiety, Denies behavioral changes, Denies confusion, Denies depression, Denies homicidal ideation and Denies suicidal ideation Endocrine Endocrine: Denies fatigue, Denies flushing and Denies palpitations Hematologic/Lymphatic Hematologic/Lymphatic: Denies easy bruising Allergic/Immunologic Allergic/Immunologic: Denies urticaria, Denies throat swelling and Denies wheezing Patient History Medical History Gastroesophageal reflux disease (Acute) Hypothyroid (Acute) Kidney stones (Acute) Social History Smoking Status: Current every day smoker Smoking Status: Current every day smoker alcohol intake frequency: 0-2 drinks per day Substance Use Type: marijuana Exam Narrative Exam Narrative: GEN: AOx3 and in mild distress EYES: Pupils are equal, round, and reactive to light and accommodation. Extraoccular muscles are intact bilaterally. There is no subconjunctival hemorrhage or exudate. CHEST: Lungs are clear to auscultation bilaterally and free of wheezes, rales, or rhonchi. Heart rate is regular rhythm, there are no murmurs, clicks, rubs, or gallops. There is no chest wall tenderness. ABD: Abdomen is soft and nontender. There is no guarding or rebound. Bowel sounds are normal in all 4 quadrants. There is no mass or organomegaly. EXT: Tenderness and mild swelling on posterior of right calcaneus. No redness or warmth, no fluctuance or induration. Tender to palpation. Full painless ROM of all extremities with no loss of sensation or strength. SKIN: Warm, pink, and dry. No erythema or rash Initial Vital Signs Initial Vital Signs: Vital Signs Temperature 98.2 F 04/18/20 20:38 Pulse Rate 96 H 04/18/20 20:38 Respiratory Rate 18 04/18/20 20:38 Blood Pressure 143/85 H 04/18/20 20:38 Pulse Oximetry 97 04/18/20 20:38 Course Orders Ordered: ED Orders 04/18/20 20:46 XR ankle RT min 3V Stat Discontinued Medications Hydrocodone Bitart/Acetaminophen (Vicodin 5/325 Prepack) 1 bottle MISC SEEINSTR ONE Stop: 04/18/20 21:59 Tramadol HCl (Ultram 50mg Prepack) 1 bottle MISC SEEINSTR ONE Stop: 04/18/20 22:12 Last Admin: 04/18/20 22:19 Dose: 1 bottle Documented by: RADHA Vital Signs Vital signs: Vital Signs - 8 hr 04/18/20 20:38 04/18/20 22:35 Temperature 98.2 F Pulse Rate 96 H 79 Respiratory Rate 18 Blood Pressure 143/85 H 144/75 H Pulse Oximetry 97 99 MDM - Extremity Injury (Lower) Imaging Data Extremity x-ray #1: Radiologist's Impression: [address] [address] XRay Report Signed Patient: Rabia Arthur EMR#: [id number] : 1965Acct:[id number] Age/Sex: 55 / FDate of Service: 04/18/20 Loc: ED Accession Number: [id number] Procedure: XR ankle RT min 3V Ordering Provider: Nathan Daniel D.O. PROCEDURE: XR ANKLE RT MIN 3V INDICATIONS: heel pain TECHNIQUE: 3 views of the ankle were acquired. COMPARISON: None. FINDINGS: Bones: No fractures or dislocations. Ankle mortise is normally aligned. No suspicious bony lesions. Soft tissues: No tibiotalar joint effusion. Achilles tendon appears normal. IMPRESSION: No acute fracture. No osseous lesion. If symptoms and/or clinical suspicion for pathology persist, further assessment with repeat, or advanced imaging (e.g., CT, MRI, or bone scan) may be helpful for further assessment. Dictated by: Santiago De León M.D. on 04/18/2020 at 21:04 Approved by: Santiago De León M.D. on 04/18/2020 at 21:04 Discharge Plan Departure Patient Disposition: Home Clinical Impression: Chronic pain of right heel Discharge Date/Time: 04/18/20 22:37 Instructions: DI for Foot Pain Activity Restrictions/Additional Instructions: *You have been diagnosed with [heel pain, likely from bone spur] *What to do: *Take medications as directed *Follow up with your primary care provider in 2-3 days, call for an appointment. Let them know you were seen in the Emergency Department and that we ask that you be seen in follow up *Return to ER if you should have any new, worsening or concerning symptoms You have been prescribed narcotic medications. While on these medications you cannot drive or operate heavy machinery. Additionally you cannot sign legal documents or perform any duties such as this. 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 Please understand that we cannot provide further refills of narcotics or controlled substances through the ED and your pain management will need to be through your Primary Care Provider Prescriptions: No Action gemfibrozil 600 MG tablet 600 mg PO BIDAC Qty: 0 RF: 0 loratadine [Claritin] 10 MG tablet 10 mg PO DAILY Qty: 0 RF: 0 citalopram 20 MG tablet 40 mg PO QDAY Qty: 0 RF: 0 hydroxyzine pamoate [Vistaril] 25 mg capsule 25 mg PO Q6-8H PRN (Reason: itching) Qty: 10 RF: 0 dicyclomine 20 mg tablet 20 mg PO QID PRN (Reason: pain, mild) Qty: 20 RF: 0 ondansetron 4 mg tablet,disintegrating 4 mg PO Q6H PRN (Reason: nausea and vomiting) Qty: 15 RF: 0 meclizine 25 mg tablet 25 mg PO BID-TID PRN (Reason: motion sickness) Qty: 10 RF: 0 acetaminophen 500 mg Tablet 1,000 mg PO Q6H PRN (Reason: pain / fever) RF: 0 ondansetron 4 mg tablet,disintegrating 4 mg PO TID-QID PRN (Reason: nausea and vomiting) Qty: 10 RF: 0 prednisone 20 mg tablet 20 mg PO DAILY Qty: 5 RF: 0 azithromycin 250 mg tablet See Rx Instructions .ROUTE .COMPLEX Qty: 6 RF: 0 Referrals: Susan Sewell DPM [Physician] -
[2020-04-18] MEDS: TRAMADOL 50 MG PREPACK 1 BOTTLE MISC (22:19)
[2020-04-18 22:35] VITALS: BP 144/75; PULSE 79; O2SAT 99
== END 2020-04-18 22:37 | disposition home or self-care (01) ==
PROVIDERS: Emergency Provider Emergency Medicine
DX: M79.671 Pain in right foot (principal)
CPT/HCPCS: 73610; 99283

== ENCOUNTER 2022-09-26 14:15 | Emergency (ER) | payer OTHER, MEDICAID, SELFPAY ==
[2022-09-26] VITALS (8 sets, daily range): BP systolic 98–118; BP diastolic 59–66; PULSE 79–95; RESP 19; TEMP 36.8; O2SAT 95–98; BMI 23.9
[2022-09-26] MEDS: ONDANSETRON 4 MG/2 ML INJ IV (14:35)
[2022-09-26 14:47] LABS: Add Manual Diff / Slide Review NO; Basophils Absolute Auto 0 /uL (0-100); Basophils Percent Auto 0.5 % (0-2); Eosinophils Absolute Auto 0 /uL (0-450); Eosinophils Percent Auto 0.5 % (2-4); Hematocrit 39.9 % (36-46); Hemoglobin 13.2 g/dL (12.0-16.0); Lymphocytes Absolute Auto 1900 /uL (1100-4500); Lymphocytes Percent Auto 36.4 % (25-40); Mean Corpuscular HGB Conc 33.2 % (30-36); Mean Corpuscular Hemoglobin 28.3 PG (26-34); Mean Corpuscular Volume 85.3 fL (80-100); Monocytes Absolute Auto 500 /uL (0-900); Monocytes Percent Auto 9.2 % (3-14); Neutrophils Absolute Auto 2800 /uL (1500-7000); Neutrophils Percent Auto 53.4 % (50-75); Platelet Count 184 X10^3/uL (150-400); Red Blood Cell Count 4.68 X10^6/uL (4.0-5.2); Red Cell Distribution Width 14.2 % (11.6-14.8); White Blood Cell Count 5.3 X10^3/uL (4.5-11.0)
[2022-09-26 15:03] LABS: Alanine Aminotransferase 26 IU/L (<35); Albumin 4.7 g/dL (3.5-5.0); Albumin Globulin Ratio 1.3 (1.0-2.8); Alkaline Phosphatase 72 U/L (38-126); Aspartate Aminotransferase 27 IU/L (14-36); BUN Creatinine Ratio 21.8 (6-22); Bilirubin Total 0.4 mg/dL (0.2-1.3); Blood Urea Nitrogen 19 mg/dL (7-17); Calcium 9.8 mg/dL (8.4-10.2); Carbon Dioxide 32 mmol/L (22-32); Chloride 99 mmol/L (98-107); Estimated Glomerular Filt Rate > 60 mL/min (>60); Globulin 3.7 g/dL (1.7-4.1); Glucose 97 mg/dL (70-100); HEMOLYSIS < 15 (0-50); Lipase 228 U/L (23-300); Potassium 3.2 mmol/L (3.4-5.1); Sodium 141 mmol/L (137-145); Total Protein 8.4 g/dL (6.3-8.2)
--- NOTE | 2022-09-26 15:36 | ED_ITS ---
HPI - Nausea/Vomiting/Diarrhea <Thelma Teague PA-C - Last Filed: 09/26/22 21:48> General Chief complaint: Nausea/Vomiting/Diarrhea Stated complaint: Vomiting, back pain since tuesday Time Seen by Provider: 09/26/22 15:11 Source: patient Mode of arrival: Ambulatory History of Present Illness HPI Narrative: the patient is 57 years old female, who presents to the ER with 3 day history of abdominal discomfort, feeling nauseous, fatigue, headache, and some dizziness. She admits for the past few days she was able to drink and ieat very little, she was vomiting for past 2 days and adjust today was able to hold down some food. She noticed her urine is dark. She denies urinary symptoms per se , but she feels her mouth is dry and she feels thursty but afraid to drink due to fear to throw up. No fever but generalized body aches. Denies shortness of breath or dry cough. She is feeling weak and dizzy. She is exposed at home to her grandchildren who have been sick, and her daughter and son-in-law also Were sick with COVID-19 symptoms. patient revealed she was not immunized for COVID-19 at all, citing her concerns for side effects. She states she was fortunate to avoid COVID-19 early on in an epidemic, she admits she has been extra careful with her personal hygiene. Currently her best concern is her headache and dizziness. She describes her headache located on the top of Her head, she tried Tylenol earlier today without relief. She still feels quite nauseated. She was able to tolerate earlier today light breakfast Related Data Home Medications Medication Instructions Recorded Confirmed gemfibrozil 600 mg tablet 600 mg PO BIDAC ##0 04/09/11 02/28/19 loratadine 10 mg tablet (Claritin) 10 mg PO DAILY ##0 04/09/11 02/28/19 citalopram 20 mg tablet 40 mg PO QDAY ##0 02/09/12 02/28/19 acetaminophen 500 mg tablet 1,000 mg PO Q6H PRN pain / fever 02/28/19 02/28/19 Previous Rx's Medication Instructions Recorded meclizine 25 mg tablet 25 mg PO BID-TID PRN motion 11/22/18 sickness #10 tabs hydroxyzine pamoate 25 mg capsule 25 mg PO Q6-8H PRN itching #10 caps 12/09/18 (Vistaril) ondansetron 4 mg disintegrating 4 mg PO TID-QID PRN nausea and 02/28/19 tablet vomiting #10 tabs azithromycin 250 mg tablet See Rx Instructions PO .COMPLEX #6 08/24/19 tabs prednisone 20 mg tablet 20 mg PO DAILY #5 tabs 08/24/19 dicyclomine 20 mg tablet 20 mg PO QID PRN pain, mild #20 10/09/19 tabs ondansetron 4 mg disintegrating 4 mg PO Q6H PRN nausea and 10/09/19 tablet vomiting #15 tabs oxycodone-acetaminophen 5 mg-325 1 tab PO TID PRN pain, moderate 09/26/22 mg tablet (Percocet) #20 tabs Allergies Allergy/AdvReac Type Severity Reaction Status Date / Time ibuprofen [IBUPROFEN] Allergy Intermediate Vomiting Verified 09/26/22 14:18 ketorolac [From Toradol] Allergy Intermediate Vomiting Verified 09/26/22 14:18 amoxicillin [AMOXICILLIN] Allergy Unknown Verified 09/26/22 14:18 aspirin [ASPIRIN] Allergy Unknown Verified 09/26/22 14:18 clavulanic acid Allergy Unknown Verified 09/26/22 14:18 [CLAVULANIC ACID] diphenhydramine Allergy Unknown Verified 09/26/22 14:18 [DIPHENHYDRAMINE] erythromycin base Allergy Unknown Verified 09/26/22 14:18 [From ERYTHROCIN] Sulfa (Sulfonamide Allergy Unknown Verified 09/26/22 14:18 Antibiotics) [SULFA (SULFONAMIDE ANTIBIOTICS)] tetracycline [TETRACYCLINE] Allergy Unknown Verified 09/26/22 14:18 hydrocodone [From Vicodin] Allergy Verified 09/26/22 14:18 levofloxacin [From Levaquin] Allergy Shakiness Verified 09/26/22 14:18 lidocaine AdvReac Intermediate Verified 09/26/22 14:18 Review of Systems <Thelma Teague PA-C - Last Filed: 09/26/22 21:48> Review of Systems Narrative: GENERAL: Admits to chills, fatigue, malaise, deny fever, sweats. HEENT: Denies sinus pain, ear pain, sore throat, difficulty swallowing, admits to dizziness. RESPIRATORY: Denies dyspnea, cough, wheezing, hemoptysis, sputum. CARDIOVASCULAR: Denies chest pain, palpitations, orthopnea, edema, GASTROINTESTINAL: admits to nausea, vomiting, has some diarrhea, denies constipation, melena. : Denies dysuria, frequency, incontinence, hematuria, urinary retention. MUSCULOSKELETAL: denies weakness, joint pain, admits to generalized body aches SKIN: Denies rash, skin lesions NEUROLOGIC: Denies weakness, headache, numbness, change in speech, confusion, seizures, incoordination. PSYCHIATRIC: No concerning psychosocial issues. Has depression, takes antidepressants Patient History <Thelma Teague PA-C - Last Filed: 09/26/22 21:48> Medical History (Updated 09/26/22 @ 21:45 by Thelma Teague PA-C) Gastroesophageal reflux disease Hypothyroid Kidney stones Social History Smoking Status: Current every day smoker Smoking Status: Current every day smoker alcohol intake frequency: 0-2 drinks per day Substance Use Type: marijuana Exam <Thelma Teague PA-C - Last Filed: 09/26/22 21:48> Narrative Exam Narrative: GENERAL: 57 year old patient appears stated age. Well-developed patient, in mild distress due to headache HEAD: Atraumatic. Normocephalic. EYES: Pupils equal round and reactive. Extraocular motions intact. No scleral icterus. No injection or drainage. ENT: Nose without bleeding, purulent drainage. Throat without erythema, tonsillar hypertrophy or exudate. Airway patent. oral mucosa is dry NECK: Trachea midline. Non tender CARDIOVASCULAR: Regular rate and rhythm without murmurs, gallops, or rubs. RESPIRATORY: Clear to auscultation. Breath sounds equal bilaterally. No wheezes, rales, or rhonchi. GASTROINTESTINAL: Abdomen soft, non-tender, nondistended. no organomegaly BS X 4 normoactive EXTREMITIES: No edema or joint tenderness. BACK: Nontender without deformity or crepitance. No flank tenderness. NEURO: AOx3. relfexes UE LE intact no focal deficits SKIN: No rash or erythema of visible areas skin turgor is normal Initial Vital Signs Initial Vital Signs: Vital Signs Temperature 98.2 F 09/26/22 14:18 Pulse Rate 95 H 09/26/22 14:18 Respiratory Rate 19 09/26/22 14:18 Blood Pressure 116/63 09/26/22 14:18 Pulse Oximetry 97 09/26/22 14:18 Oxygen Delivery Method 09/26/22 14:18 <Rosina Francis DO - Last Filed: 09/30/22 02:06> Initial Vital Signs Initial Vital Signs: Vital Signs Temperature 98.2 F 09/26/22 14:18 Pulse Rate 95 H 09/26/22 14:18 Respiratory Rate 19 09/26/22 14:18 Blood Pressure 116/63 09/26/22 14:18 Pulse Oximetry 97 09/26/22 14:18 Oxygen Delivery Method 09/26/22 14:18 Course <Thelma Teague PA-C - Last Filed: 09/26/22 21:48> Orders Ordered: Discontinued Medications Ondansetron HCl (Ondansetron 4 Mg Odt) 4 mg PO NOW PRN PRN Reason: Nausea And Vomiting Ondansetron HCl (Ondansetron 4 Mg/2 Ml Inj) 4 mg IV NOW PRN PRN Reason: Nausea And Vomiting Last Admin: 09/26/22 14:35 Dose: 4 mg Documented By: MITESH Ondansetron HCl (Ondansetron 4 Mg Odt Prepack) 1 bottle MISC SEEINSTR ONE Stop: 09/26/22 17:28 Last Admin: 09/26/22 17:51 Dose: 1 bottle Documented By: ИВАН Oxycodone/Acetaminophen (Oxycodone/Acetaminophen 5/325 Tablet) 1 tab PO NOW ONE Stop: 09/26/22 16:45 Last Admin: 09/26/22 16:53 Dose: 1 tab Documented By: ИВАН Oxycodone/Acetaminophen (Oxycodone/Apap 5/325 Prepack) 1 bottle MISC SEEINSTR ONE Stop: 09/26/22 17:28 Last Admin: 09/26/22 17:52 Dose: 1 bottle Documented By: ИВАН Vital Signs Vital signs: Vital Signs - 8 hr 09/26/22 14:18 09/26/22 15:55 09/26/22 15:56 Temperature 98.2 F Pulse Rate 95 H 86 86 Respiratory Rate 19 Blood Pressure 116/63 Pulse Oximetry 97 97 97 Oxygen Delivery Method Room Air 09/26/22 15:56 09/26/22 16:01 09/26/22 16:02 Temperature Pulse Rate 83 84 Respiratory Rate Blood Pressure 111/62 Pulse Oximetry 97 98 Oxygen Delivery Method 09/26/22 16:02 09/26/22 16:30 09/26/22 16:30 Temperature Pulse Rate 81 Respiratory Rate Blood Pressure 98/59 L 104/64 Pulse Oximetry 95 Oxygen Delivery Method 09/26/22 17:00 09/26/22 17:00 09/26/22 17:30 Temperature Pulse Rate 79 Respiratory Rate Blood Pressure 111/60 118/66 Pulse Oximetry 97 Oxygen Delivery Method 09/26/22 17:30 Temperature Pulse Rate 86 Respiratory Rate Blood Pressure Pulse Oximetry 96 Oxygen Delivery Method <Rosina Francis DO - Last Filed: 09/30/22 02:06> Orders Ordered: Discontinued Medications Ondansetron HCl (Ondansetron 4 Mg Odt) 4 mg PO NOW PRN PRN Reason: Nausea And Vomiting Ondansetron HCl (Ondansetron 4 Mg/2 Ml Inj) 4 mg IV NOW PRN PRN Reason: Nausea And Vomiting Last Admin: 09/26/22 14:35 Dose: 4 mg Documented By: MITESH Ondansetron HCl (Ondansetron 4 Mg Odt Prepack) 1 bottle MISC SEEINSTR ONE Stop: 09/26/22 17:28 Last Admin: 09/26/22 17:51 Dose: 1 bottle Documented By: ИВАН Oxycodone/Acetaminophen (Oxycodone/Acetaminophen 5/325 Tablet) 1 tab PO NOW ONE Stop: 09/26/22 16:45 Last Admin: 09/26/22 16:53 Dose: 1 tab Documented By: ИВАН Oxycodone/Acetaminophen (Oxycodone/Apap 5/325 Prepack) 1 bottle MISC SEEINSTR ONE Stop: 09/26/22 17:28 Last Admin: 09/26/22 17:52 Dose: 1 bottle Documented By: ИВАН Vital Signs Vital signs: Vital Signs - 8 hr 09/26/22 14:18 09/26/22 15:55 09/26/22 15:56 Temperature 98.2 F Pulse Rate 95 H 86 86 Respiratory Rate 19 Blood Pressure 116/63 Pulse Oximetry 97 97 97 Oxygen Delivery Method Room Air 09/26/22 15:56 09/26/22 16:01 09/26/22 16:02 Temperature Pulse Rate 83 84 Respiratory Rate Blood Pressure 111/62 Pulse Oximetry 97 98 Oxygen Delivery Method 09/26/22 16:02 09/26/22 16:30 09/26/22 16:30 Temperature Pulse Rate 81 Respiratory Rate Blood Pressure 98/59 L 104/64 Pulse Oximetry 95 Oxygen Delivery Method 09/26/22 17:00 09/26/22 17:00 09/26/22 17:30 Temperature Pulse Rate 79 Respiratory Rate Blood Pressure 111/60 118/66 Pulse Oximetry 97 Oxygen Delivery Method 09/26/22 17:30 Temperature Pulse Rate 86 Respiratory Rate Blood Pressure Pulse Oximetry 96 Oxygen Delivery Method MDM - Nausea/Vomiting/Diarrhea <Thelma Teague PA-C - Last Filed: 09/26/22 21:48> Lab Data Lab results narrative: reviewed, some hypokalemia noted UA reviewed and no evidence of UTI 09/26/22 14:35 09/26/22 14:35 Labs: Lab Results 09/26/22 09/26/22 09/26/22 Range/Units 14:35 14:35 15:53 WBC 5.3 (4.5-11.0) X10^3/uL RBC 4.68 (4.0-5.2) X10^6/uL Hgb 13.2 (12.0-16.0) g/dL Hct 39.9 (36-46) % MCV 85.3 (80-100) fL MCH 28.3 (26-34) PG MCHC 33.2 (30-36) % RDW 14.2 (11.6-14.8) % Plt Count 184 (150-400) X10^3/uL Neut % (Auto) 53.4 (50-75) % Lymph % (Auto) 36.4 (25-40) % Rolette % (Auto) 9.2 (3-14) % Eos % (Auto) 0.5 L (2-4) % Baso % (Auto) 0.5 (0-2) % Neut # (Auto) 2800 (1277-8701) /uL Lymph # (Auto) 1900 (3641-6972) /uL Rolette # (Auto) 500 (0-900) /uL Eos # (Auto) 0 (0-450) /uL Baso # (Auto) 0 (0-100) /uL Sodium 141 (137-145) mmol/L Potassium 3.2 L (3.4-5.1) mmol/L Chloride 99 (98-107) mmol/L Carbon Dioxide 32 (22-32) mmol/L BUN 19 H (7-17) mg/dL Creatinine 0.87 (0.52-1.04) mg/dL Estimated GFR > 60 (>60) mL/min BUN/Creatinine Ratio 21.8 (6-22) Glucose 97 (70-100) mg/dL Calcium 9.8 (8.4-10.2) mg/dL Total Bilirubin 0.4 (0.2-1.3) mg/dL AST 27 (14-36) IU/L ALT 26 (<35) IU/L Alkaline Phosphatase 72 (38-126) U/L Total Protein 8.4 H (6.3-8.2) g/dL Albumin 4.7 (3.5-5.0) g/dL Globulin 3.7 (1.7-4.1) g/dL Albumin/Globulin Ratio 1.3 (1.0-2.8) Lipase 228 (23-300) U/L Urine RBC (0-5/HPF) Urine WBC (0-5/HPF) Ur Squamous Epith Cells (0-5/HPF) Urine Bacteria (None) Urine Mucus (Negative) Ur Culture Indicated? SARS-CoV-2 (PCR) Positive H (Negative) 09/26/22 Range/Units 16:06 WBC (4.5-11.0) X10^3/uL RBC (4.0-5.2) X10^6/uL Hgb (12.0-16.0) g/dL Hct (36-46) % MCV (80-100) fL MCH (26-34) PG MCHC (30-36) % RDW (11.6-14.8) % Plt Count (150-400) X10^3/uL Neut % (Auto) (50-75) % Lymph % (Auto) (25-40) % Rolette % (Auto) (3-14) % Eos % (Auto) (2-4) % Baso % (Auto) (0-2) % Neut # (Auto) (1686-2260) /uL Lymph # (Auto) (3173-5751) /uL Rolette # (Auto) (0-900) /uL Eos # (Auto) (0-450) /uL Baso # (Auto) (0-100) /uL Sodium (137-145) mmol/L Potassium (3.4-5.1) mmol/L Chloride (98-107) mmol/L Carbon Dioxide (22-32) mmol/L BUN (7-17) mg/dL Creatinine (0.52-1.04) mg/dL Estimated GFR (>60) mL/min BUN/Creatinine Ratio (6-22) Glucose (70-100) mg/dL Calcium (8.4-10.2) mg/dL Total Bilirubin (0.2-1.3) mg/dL AST (14-36) IU/L ALT (<35) IU/L Alkaline Phosphatase (38-126) U/L Total Protein (6.3-8.2) g/dL Albumin (3.5-5.0) g/dL Globulin (1.7-4.1) g/dL Albumin/Globulin Ratio (1.0-2.8) Lipase (23-300) U/L Urine RBC 1-5/hpf (0-5/HPF) Urine WBC 1-5/hpf (0-5/HPF) Ur Squamous Epith Cells 0-1 /hpf (0-5/HPF) Urine Bacteria Occasional (0-1) (None) Urine Mucus 1+ H (Negative) Ur Culture Indicated? Cult not indicated SARS-CoV-2 (PCR) (Negative) MDM Narrative Medical decision making narrative: discussed with patient diagnosis and treatment her symptoms may be attributed to COVID 19, discussed treatment with paxlovid, and pros and cons reviewed with patient, due to multiple drug drug interaction and increase chance for worsening nausea on this medication, patient made a decision to concentrate on symptom management, treat her headache with percocet, antiemetics were helping. She also has hypokalemia which most likely associated with her vomiting and diarrhea therefore needs a replacement Prior Charts reviewed:yes Labs reviewed and interpreted by myself: Patient's symptoms improved over duration of stay with above-stated therapies. Findings and discharge diagnosis discussed with patient followed by verbalization of understanding Return precautions discussed with patient whom verbalize understanding of diagnosis and plan <Rosina Francis, DO - Last Filed: 09/30/22 02:06> Lab Data Labs: Lab Results 09/26/22 09/26/22 09/26/22 Range/Units 14:35 14:35 15:53 WBC 5.3 (4.5-11.0) X10^3/uL RBC 4.68 (4.0-5.2) X10^6/uL Hgb 13.2 (12.0-16.0) g/dL Hct 39.9 (36-46) % MCV 85.3 (80-100) fL MCH 28.3 (26-34) PG MCHC 33.2 (30-36) % RDW 14.2 (11.6-14.8) % Plt Count 184 (150-400) X10^3/uL Neut % (Auto) 53.4 (50-75) % Lymph % (Auto) 36.4 (25-40) % Rolette % (Auto) 9.2 (3-14) % Eos % (Auto) 0.5 L (2-4) % Baso % (Auto) 0.5 (0-2) % Neut # (Auto) 2800 (8749-1961) /uL Lymph # (Auto) 1900 (2668-0709) /uL Rolette # (Auto) 500 (0-900) /uL Eos # (Auto) 0 (0-450) /uL Baso # (Auto) 0 (0-100) /uL Sodium 141 (137-145) mmol/L Potassium 3.2 L (3.4-5.1) mmol/L Chloride 99 (98-107) mmol/L Carbon Dioxide 32 (22-32) mmol/L BUN 19 H (7-17) mg/dL Creatinine 0.87 (0.52-1.04) mg/dL Estimated GFR > 60 (>60) mL/min BUN/Creatinine Ratio 21.8 (6-22) Glucose 97 (70-100) mg/dL Calcium 9.8 (8.4-10.2) mg/dL Total Bilirubin 0.4 (0.2-1.3) mg/dL AST 27 (14-36) IU/L ALT 26 (<35) IU/L Alkaline Phosphatase 72 (38-126) U/L Total Protein 8.4 H (6.3-8.2) g/dL Albumin 4.7 (3.5-5.0) g/dL Globulin 3.7 (1.7-4.1) g/dL Albumin/Globulin Ratio 1.3 (1.0-2.8) Lipase 228 (23-300) U/L Urine RBC (0-5/HPF) Urine WBC (0-5/HPF) Ur Squamous Epith Cells (0-5/HPF) Urine Bacteria (None) Urine Mucus (Negative) Ur Culture Indicated? SARS-CoV-2 (PCR) Positive H (Negative) 09/26/22 Range/Units 16:06 WBC (4.5-11.0) X10^3/uL RBC (4.0-5.2) X10^6/uL Hgb (12.0-16.0) g/dL Hct (36-46) % MCV (80-100) fL MCH (26-34) PG MCHC (30-36) % RDW (11.6-14.8) % Plt Count (150-400) X10^3/uL Neut % (Auto) (50-75) % Lymph % (Auto) (25-40) % Rolette % (Auto) (3-14) % Eos % (Auto) (2-4) % Baso % (Auto) (0-2) % Neut # (Auto) (3832-5352) /uL Lymph # (Auto) (8718-3653) /uL Rolette # (Auto) (0-900) /uL Eos # (Auto) (0-450) /uL Baso # (Auto) (0-100) /uL Sodium (137-145) mmol/L Potassium (3.4-5.1) mmol/L Chloride (98-107) mmol/L Carbon Dioxide (22-32) mmol/L BUN (7-17) mg/dL Creatinine (0.52-1.04) mg/dL Estimated GFR (>60) mL/min BUN/Creatinine Ratio (6-22) Glucose (70-100) mg/dL Calcium (8.4-10.2) mg/dL Total Bilirubin (0.2-1.3) mg/dL AST (14-36) IU/L ALT (<35) IU/L Alkaline Phosphatase (38-126) U/L Total Protein (6.3-8.2) g/dL Albumin (3.5-5.0) g/dL Globulin (1.7-4.1) g/dL Albumin/Globulin Ratio (1.0-2.8) Lipase (23-300) U/L Urine RBC 1-5/hpf (0-5/HPF) Urine WBC 1-5/hpf (0-5/HPF) Ur Squamous Epith Cells 0-1 /hpf (0-5/HPF) Urine Bacteria Occasional (0-1) (None) Urine Mucus 1+ H (Negative) Ur Culture Indicated? Cult not indicated SARS-CoV-2 (PCR) (Negative) ECG Data Interpretation: Penny-normal sinus rhythm rate 82 MT interval 124 QRS [address] changes no T-wave inversions similar to previous EKG in 2019 Discharge Plan Departure Patient Disposition: Home Clinical Impression: COVID-19, Hyperkalemia Nausea & vomiting Qualifiers: Vomiting type: unspecified Qualified Code(s): R11.2 - Nausea with vomiting, unspecified Headache Qualifiers: Headache type: unspecified Headache chronicity pattern: unspecified pattern Intractability: not intractable Qualified Code(s): R51.9 - Headache, unspecified Instructions: DI for Nausea -- Adult, DI for Headache, DI for COVID-19 (Suspected or Confirmed ) Activity Restrictions/Additional Instructions: *You have been diagnosed with covid 19 infection which is attributing to other symptoms, headache, nausea and vomiting also hypokalemia *What to do: *Please continue to take your regular medications as directed. New medication prescriptions sent to your pharmacy: percocet 5/325mg three times a day for body aches headaches zofran 4 mg for nausea three times a day Potassium chloride advise self isolation for 5 days drink plenty of fluids take anti nausea medication as needed Plenty of rest *Please follow up with your primary care provider in as soon as you can , call for an appointment. Let them know you were seen in the Emergency Department and that we ask that you be seen in follow up. We will electronically transmit a record of today's note if your PCP is in our system *If you do not have a primary care provider please contact the [facility] Resource line at [phone]. They will ask some questions about your medical history and help get you set up with a doctor in the community. *Return to Emergency Department if you should have any new, worsening or concerning symptoms, such as fever greater than 101 F, shaking chills, worsen ing pain, persistent vomiting or other bothersome symptoms Prescriptions: New oxycodone-acetaminophen [Percocet] 5-325 mg tablet 1 tab PO TID PRN (Reason: pain, moderate) Qty: 20 0RF No Action gemfibrozil 600 MG tablet 600 mg PO BIDAC Qty: 0 loratadine [Claritin] 10 MG tablet 10 mg PO DAILY Qty: 0 citalopram 20 MG tablet 40 mg PO QDAY Qty: 0 hydroxyzine pamoate [Vistaril] 25 mg capsule 25 mg PO Q6-8H PRN (Reason: itching) Qty: 10 0RF dicyclomine 20 mg tablet 20 mg PO QID PRN (Reason: pain, mild) Qty: 20 0RF ondansetron 4 mg tablet,disintegrating 4 mg PO Q6H PRN (Reason: nausea and vomiting) Qty: 15 0RF meclizine 25 mg tablet 25 mg PO BID-TID PRN (Reason: motion sickness) Qty: 10 0RF acetaminophen 500 mg Tablet 1,000 mg PO Q6H PRN (Reason: pain / fever) ondansetron 4 mg tablet,disintegrating 4 mg PO TID-QID PRN (Reason: nausea and vomiting) Qty: 10 0RF prednisone 20 mg tablet 20 mg PO DAILY Qty: 5 0RF Rx Instructions: administer with food or milk azithromycin 250 mg tablet See Rx Instructions .ROUTE .COMPLEX Qty: 6 0RF Rx Instructions: take 500 mg today (day 1), then 250 mg for 4 days (days 2-5) Stand Alone Forms: Patient Portal/API <Rosina Francis DO - Last Filed: 09/30/22 02:06> Cosign ED Attending Jaileneature Attestation: I was immediately available in the department for consultation. Documentation has been reviewed.
[2022-09-26 16:14] LABS: COVID19 -Nasal RAPID POSITIVE (Negative)
[2022-09-26 16:37] LABS: Bacteria Urine Occasional (0-1); RBC Urine 1-5/HPF (0-5/HPF); Squamous Epithelial Cell Urine 0-1 /HPF (0-5/HPF); WBC Urine 1-5/HPF (0-5/HPF)
[2022-09-26 16:38] LABS: Culture Indicated Urine Cult Not Indicated; Mucus Urine 1+ (Negative)
[2022-09-26] MEDS: OXYCODONE/ACETAMINOPHEN 5/325 TABLET 1 TAB PO (16:53)
[2022-09-26] MEDS: ONDANSETRON 4 MG ODT PREPACK 1 BOTTLE MISC (17:51)
[2022-09-26] MEDS: OXYCODONE/APAP 5/325 PREPACK 1 BOTTLE MISC (17:52)
== END 2022-09-26 17:53 | disposition home or self-care (01) ==
PROVIDERS: Emergency Medicine; Emergency Provider Physician Assistant Medical
DX: U07.1 COVID-19 (principal); E87.5 Hyperkalemia; R11.2 Nausea with vomiting, unspecified; R51.9 Headache, unspecified
CPT/HCPCS: 36415; 80053; 81015; 83690; 85025; 87635; 93005; 96374; 99284; C9803; J2405

== ENCOUNTER 2023-07-13 22:07 | Emergency (ER) | payer OTHER, MEDICAID, SELFPAY ==
[2023-07-13 22:13] VITALS: BP 129/79; PULSE 102; RESP 18; TEMP 36.8; O2SAT 97; BMI 24.5
--- NOTE | 2023-07-14 00:59 | ED_ITS ---
HPI - Ear Problem General Chief complaint: Upper Respiratory Symptoms Stated complaint: can't hear from rt ear for a week Time Seen by Provider: 07/14/23 00:58 Source: patient Mode of arrival: Ambulatory Limitations: no limitations History of Present Illness HPI Narrative: 58-year-old female with history of tobacco use, dyslipidemia and chronic pain who presents with complaint of right ear pain. Patient has had recent nasal congestion, cough and cold which has been slowly improving. She notes her right ear has been plugged she has not really been able to hear out of it. She states it has been uncomfortable at times. She has not appreciated any drainage. She feels like she can not pop her ear at all. She denies fevers. No redness or swelling of the ear or face. No sore throat. She denies any chest pain or shortness of breath. She would some nausea last night but no nausea or vomiting today. No diarrhea constipation, no urinary symptoms. No rash or skin changes otherwise. Patient states she has multiple allergies to medications. She does use tobacco daily, occasional alcohol, no recreational drugs. Related Data Home Medications Medication Instructions Recorded Confirmed gemfibrozil 600 mg tablet 600 mg PO BIDAC ##0 04/09/11 02/28/19 loratadine 10 mg tablet (Claritin) 10 mg PO DAILY ##0 04/09/11 02/28/19 citalopram 20 mg tablet 40 mg PO QDAY ##0 02/09/12 02/28/19 acetaminophen 500 mg tablet 1,000 mg PO Q6H PRN pain / fever 02/28/19 02/28/19 Previous Rx's Medication Instructions Recorded meclizine 25 mg tablet 25 mg PO BID-TID PRN motion 11/22/18 sickness #10 tabs hydroxyzine pamoate 25 mg capsule 25 mg PO Q6-8H PRN itching #10 caps 12/09/18 (Vistaril) ondansetron 4 mg disintegrating 4 mg PO TID-QID PRN nausea and 02/28/19 tablet vomiting #10 tabs azithromycin 250 mg tablet See Rx Instructions PO .COMPLEX #6 08/24/19 tabs prednisone 20 mg tablet 20 mg PO DAILY #5 tabs 08/24/19 dicyclomine 20 mg tablet 20 mg PO QID PRN pain, mild #20 10/09/19 tabs ondansetron 4 mg disintegrating 4 mg PO Q6H PRN nausea and 10/09/19 tablet vomiting #15 tabs oxycodone-acetaminophen 5 mg-325 1 tab PO TID PRN pain, moderate 09/26/22 mg tablet (Percocet) #20 tabs fluticasone propionate 50 1 spray intranasal DAILY #16 grams 07/14/23 mcg/actuation nasal spray,suspension (Aller-Iftikhar) Allergies Allergy/AdvReac Type Severity Reaction Status Date / Time ibuprofen [IBUPROFEN] Allergy Intermediate Vomiting Verified 09/26/22 14:18 ketorolac [From Toradol] Allergy Intermediate Vomiting Verified 09/26/22 14:18 amoxicillin [AMOXICILLIN] Allergy Unknown Verified 09/26/22 14:18 aspirin [ASPIRIN] Allergy Unknown Verified 09/26/22 14:18 clavulanic acid Allergy Unknown Verified 09/26/22 14:18 [CLAVULANIC ACID] diphenhydramine Allergy Unknown Verified 09/26/22 14:18 [DIPHENHYDRAMINE] erythromycin base Allergy Unknown Verified 09/26/22 14:18 [From ERYTHROCIN] Sulfa (Sulfonamide Allergy Unknown Verified 09/26/22 14:18 Antibiotics) [SULFA (SULFONAMIDE ANTIBIOTICS)] tetracycline [TETRACYCLINE] Allergy Unknown Verified 09/26/22 14:18 levofloxacin [From Levaquin] Allergy Shakiness Verified 09/26/22 14:18 Review of Systems Review of Systems ROS Unobtainable: All systems reviewed & are unremarkable except as noted in HPI and below Patient History Medical History (Updated 07/14/23 @ 02:06 by Emily Marshall DO) Kidney stones Gastroesophageal reflux disease Hypothyroid Social History Smoking Status: Current every day smoker Smoking Status: Current every day smoker tobacco type: cigarettes alcohol intake frequency: 0-2 drinks per day Substance Use Type: does not use Exam Narrative Exam Narrative: GEN: well nourished, well appearing female, alert and oriented x 3, patient appears to be in mild distress. HEENT: Atraumatic, pupils are equal round reactive to light, extraocular movements are intact, nares are clear, right ear has what appears to be dried cerumen there does appear to be an area that is able to visualize the bottom edge of the TM does not appear infected but can not see the full TM. Canal is clear without any obvious signs of infection. Left ear has scant cerumen TM is retracted with scant fluid but no erythema or changes otherwise. There is no conjunctival pallor. Throat is clear without any exudates, erythema, tonsillar enlargement or uvular deviation HEART: Regular rate and rhythm without murmur, clicks, rubs. No carotid bruits, pulses are equal in upper and lower extremities LUNGS:Lungs clear to auscultation, no wheezes, rales, crackles, chest moves symm etrically ABD:bowel sounds normal, soft, non-tender, no guarding, rebound, rigidity, no masses noted, no hepatosplenomegaly MSCL: Non-tender, no muscle atrophy, muscles strength 5/5 upper and lower ex tremities, full range of motion, normal gait NEURO:CN 2-12 intact, sensation normal. SKIN: No rash, erythema or other skin changes Initial Vital Signs Initial Vital Signs: Vital Signs Temperature 98.2 F 07/13/23 22:13 Pulse Rate 102 H 07/13/23 22:13 Respiratory Rate 18 07/13/23 22:13 Blood Pressure 129/79 07/13/23 22:13 Pulse Oximetry 97 07/13/23 22:13 Oxygen Delivery Method Room Air 07/13/23 22:13 Course Orders Ordered: Carbamide Peroxide (Carbamide Peroxide Otic 15 Ml) 4 drops EAR-RIGHT BID ALEXSANDER Last Admin: 07/14/23 01:12 Dose: 4 drops Documented By: DKKatharine Discontinued Medications Hydrocodone Bitart/Acetaminophen (Hydrocodone/Acet 5/325 Tablet) 1 tab PO NOW ONE Stop: 07/14/23 02:02 Last Admin: 07/14/23 02:24 Dose: 1 tab Neomycin/Polymyxin/Hydrocortisone (Neomy/Polym B/Hc Otic 10 Ml) 4 drops EAR- RIGHT NOW ONE Stop: 07/14/23 02:02 Last Admin: 07/14/23 02:28 Dose: Not Given Polymyxin/Trimethoprim Sulfate (Polymy B/Trimeth Ophth Prepack) 1 bottle MISC SEEINSTR ONE Stop: 07/14/23 02:16 Last Admin: 07/14/23 02:24 Dose: 1 bottle Vital Signs Vital signs: Vital Signs - 8 hr 07/13/23 22:13 07/14/23 02:35 Temperature 98.2 F 98.3 F Pulse Rate 102 H 90 Respiratory Rate 18 16 Blood Pressure 129/79 132/77 Pulse Oximetry 97 98 Oxygen Delivery Method Room Air Room Air Medical Decision Making MDM Narrative Medical decision making narrative: 58-year-old female with cerumen in right ear recent upper respiratory infection likely has some eustachian tube dysfunction but was irrigated. Despite irrigation patient still has quite a bit of cerumen it is very dried and not amenable to removal with a curette. Discussed with patient there is a little bit of irritation along the canal so will cover with an antibiotic drop. We did not have otic prepack so use ophthalmic drops as these can go in the ear. We discussed trying some liquid Colace within her ear as well to help break down the cerumen with gentle irrigation at home with a bulb suction and warm water 3 times daily. Patient also has some sinus pressure and discomfort so will give a script for Flonase. Discussed with patient some of her symptoms are likely also secondary to eustachian tube dysfunction. Discharge Plan Departure Patient Disposition: Home Clinical Impression: Sinusitis Cerumen impaction Qualifiers: Laterality: right Qualified Code(s): H61.21 - Impacted cerumen, right ear Instructions: DI for Cerumen Impaction, DI for Sinusitis Activity Restrictions/Additional Instructions: Follow up for recheck in the next several days if you are not having any improvement with the below treatments. Use the antibiotic ear drops, 4 drops to the affected ear 3 times daily x 7 days. You can use liquid Colace or gel capsule, break it open and place this in your right ear. It is very effective at breaking down the ear wax. Then irrigate the wax with warm water using a bulb suction 2-3 times daily. Do this prior to placing any antibiotic drops in your ear. You can use Flonase intranasally twice daily. Prescription sent to [facility] in [place]. Please return for rapidly worsening symptoms fevers, new swelling or redness of her ear, face, bleeding from your ear or other new or concerning symptoms. Prescriptions: New fluticasone propionate [Aller-Iftikhar] 50 mcg/actuation spray,suspension 1 spray intranasal DAILY Qty: 16 0RF Rx Instructions: administer into each nostril No Action gemfibrozil 600 MG tablet 600 mg PO BIDAC Qty: 0 loratadine [Claritin] 10 MG tablet 10 mg PO DAILY Qty: 0 citalopram 20 MG tablet 40 mg PO QDAY Qty: 0 hydroxyzine pamoate [Vistaril] 25 mg capsule 25 mg PO Q6-8H PRN (Reason: itching) Qty: 10 0RF dicyclomine 20 mg tablet 20 mg PO QID PRN (Reason: pain, mild) Qty: 20 0RF ondansetron 4 mg tablet,disintegrating 4 mg PO Q6H PRN (Reason: nausea and vomiting) Qty: 15 0RF meclizine 25 mg tablet 25 mg PO BID-TID PRN (Reason: motion sickness) Qty: 10 0RF acetaminophen 500 mg Tablet 1,000 mg PO Q6H PRN (Reason: pain / fever) ondansetron 4 mg tablet,disintegrating 4 mg PO TID-QID PRN (Reason: nausea and vomiting) Qty: 10 0RF prednisone 20 mg tablet 20 mg PO DAILY Qty: 5 0RF Rx Instructions: administer with food or milk azithromycin 250 mg tablet See Rx Instructions .ROUTE .COMPLEX Qty: 6 0RF Rx Instructions: take 500 mg today (day 1), then 250 mg for 4 days (days 2-5) oxycodone-acetaminophen [Percocet] 5-325 mg tablet 1 tab PO TID PRN (Reason: pain, moderate) Qty: 20 0RF Referrals: Cecilia Joy DO [Primary Care Provider] - Stand Alone Forms: Patient Portal/API
[2023-07-14] MEDS: CARBAMIDE PEROXIDE OTIC 15 ML 4 DROPS EAR-RIGHT (01:12)
[2023-07-14] MEDS: POLYMY B/TRIMETH OPHTH PREPACK 1 BOTTLE MISC (02:24)
[2023-07-14] MEDS: HYDROCODONE/ACET 5/325 TABLET 1 TAB PO (02:24)
[2023-07-14 02:35] VITALS: BP 132/77; PULSE 90; RESP 16; TEMP 36.8; O2SAT 98
== END 2023-07-14 02:37 | disposition home or self-care (01) ==
PROVIDERS: Emergency Provider Emergency Medicine; PCP Family Medicine
DX: J32.9 Chronic sinusitis, unspecified (principal); H61.21 Impacted cerumen, right ear
CPT/HCPCS: 69209; 99283; 99284